=== PATIENT | male | born 1960 | race Caucasian/White ===

== ENCOUNTER 2016-12-20 13:16 | Inpatient (IN) | payer MEDICARE, MEDICAID ==
--- NOTE | 2016-12-20 13:50 | ED Physician Chart ---
Chief Complaint/HPI - Patient Information Date Seen:: 12/20/16 Time Seen:: 13:49 Chief Complaint:: CONSTIPATION (NO BM IN 3 DAYS) History of Present Illness:: According to the transporting steam brush operator, the patient hasn't had a bowel movement in 3 days. They have no information regarding vomiting, diarrhea or abdominal pain. The patient is noncommunicative and will not answer yes or no to questions about diarrhea, abdominal pain, vomiting, or chest pain. He does follow some very simple commands such as "open your mouth". He will not participate in a motor examination by squeezing my fingers or lifting his legs. Allergies:: Allergies Allergy/AdvReac Type Severity Reaction Status Date / Time No Known Allergies Allergy Verified 12/20/16 13:35 Vitals:: Vital Signs - 8 hr 12/20/16 13:45 BP 132/88 Review of Systems - Review of Systems General/Constitutional: Other (the patient is completely nonresponsive to any ROS questions.) Past Medical History - Past Medical History Past Medical History: Thyroid disorder (HYPOTHYROID, SEVERE MENTALLY IMPAIRD, SCHIZOPHRENIA), Other (hypothyroidism.) Family History: Other (according to accompanying paperwork the patient has hypothyroidism, mental retardation, and schizophrenia.) Social History: Non Smoker, No Alcohol, No Drug Use, Care Facility (patient lives in a [id number] facility. No surgical history.) Family Medical History - Family Member Mother History Unknown: Yes Physical Exam - Physical Examination General/Constitutional: Awake, Well-developed, well-nourished, Alert, No distress, Non-toxic appearing Head: Atraumatic Eyes: Lids, conjuctiva normal, PERRL Other Eyes comments:: Would not cooperate with EOM testing. Skin: No skin lesions, No ecchymosis, Well hydrated, No lymphadenopathy ENMT: TM canals nl, Nasal exam nl, Lips, teeth, gums nl, Oropharynx nl, Tonsils nl Neck: Nontender, Full ROM w/o pain, No JVD, No nuchal rigidity, No mass, No stridor Respiratory: Nl effort/Exclusion, No Wheeze/Rhonchi/Rales Cardio Vascular: No murmur, gallop, rubs, NL S1 S2 Other Cardio Vascular comments:: Good peripheral pulses in all 4 extremities. GI: No tenderness/rebounding/guarding, No organomegaly, No hernia, Normal BS's, Nondistended, No mass/bruits, No McBurney tenderness, Rectum exam nl Other GI comments:: No fecal impaction. : No CVA tenderness Other comments:: Circumcised with mild testicular atrophy on both the right and the left. Extremities: No tenderness or effusion, Full ROM, No edema Other Extremities comments:: Patient would not cooperate with motor examination. No spontaneous movement of any extremity. Other Neuro/Psych comments:: PT unco-oberal with attempt to do neuro exam. Misc: Normal back Labs/Radiology/EKG Results - Lab Results Results: The CBC Was unremarkable with no leukocytosis, anemia or abnormal platelets. Metabolic studies showed all electrolytes within normal parameters except for a mild elevation of the chloride. Renal function studies were normal. Liver function studies were normal. plain films of the abdomen showed extensive fecal content in the colon with some areas of fecal impaction and air fluid levels consistent with ileus. No free air was present. Assessment - Assessment General Assessment: CASE SUMMARY: this 56-year-old male was sent to the emergency department for evaluation of constipation. as unable to provide any information and accompanying steam brush operator stated the patient had not had a ball movement over the last three days. On physical examination he appeared to be in no acute distress and rectal examination was negative for impaction at that level. Abdominal x-ray studies showed the large intestine to be filled with stools with areas of fecal impaction and air fluid levels in the small bowel. The case was discussed with Dr. Wong in the patient was admitted to a medical/surgery bed for further evaluation of possible bowel obstruction. MDM DDX For CONSTIPATION: NOT MECHANICAL BOWEL OBSTRUCTION BASED ON NEGATIVE CT scan of the abdomen. NOT Incarcerated hernia based on physical examination and CT scan of the abdomen. NOT Dehydration based on examination and metabolic studies. NOT obstructing tumor mass based on negative CT scan of abdomen. ED Septic Shock - . Is Septic Shock (SBP<90, OR Lactate>4 mmol\\L) present?: No - <6hrs of presentation: Vital Signs: Vital Signs - 8 hr 12/20/16 13:45 BP 132/88 Reassessment (Disposition) - Reassessment Reassessment Condition:: Unchanged - Diagnosis Diagnosis:: DIAGNOSIS: 1) FECAL IMPACTION WITH ILEUS 2) HYPOTHYROISM 3) SCHIZOPHRENIA - Patient Disposition Discharge/Transfer:: Acute Care w/in this hosp Accepting Physician:: THE PT WILL BE ADMITTED TO DR. WONG ED Discharge Plan - Patient Disposition Admit/Discharge/Transfer: Acute Care w/in this special care hospital Condition at Disposition: Stable
[2016-12-20 14:26] LABS: % BASOPHILS 1.2 % (0.0-2.0); % EOSINOPHILS 0.8 % (0.0-5.0); % LYMPHOCYTES 33.9 % (20.0-50.0); % MONOCYTES 7.4 % (2.0-10.0); % NEUTROPHILS 56.7 % (40.0-80.0); HEMATOCRIT 44.7 % (39.0-49.0); MEAN CELL VOLUME 88.7 fl (80-99); MEAN CORPUSCULAR HEMOGLOBIN 29.8 pg (26.0-30.0); MEAN CORPUSCULAR HGB CONC 33.6 pg (28.0-36.0); MEAN PLATELET VOLUME 9.4 fl; NEUTROPHILE ABSOLUTE 3.5 Th/cmm (1.8-8.0); PLATELET COUNT 174 Th/cmm (150-400); RED BLOOD COUNT 5.04 Mil/cmm (4.30-5.70); RED CELL DISTRIBUTION WIDTH 12.5 % (11.5-20.0); WHITE BLOOD COUNT 6.4 Th/cmm (4.8-10.8)
[2016-12-20 14:41] LABS: ALB/GLOB RATIO 1.8 (1.0-1.8); ALKALINE PHOSPHATASE 78 U/L (34-104); ANION GAP 6.9 (7.0-16.0); BILIRUBIN,TOTAL 0.4 mg/dL (0.3-1.0); BUN - UREA NITROGEN 13 mg/dL (7-25); BUN/CREATININE RATIO 14.4; CALCIUM SERUM 9.1 mg/dL (8.6-10.3); CARBON DIOXIDE 25.5 mEq/L (21.0-31.0); CHLORIDE 112 mEq/L (98-107); CREATININE - SERUM 0.9 mg/dL (0.7-1.3); GLUCOSE 103 mg/dL (70-105); POTASSIUM SERUM 4.4 mEq/L (3.5-5.1); SGOT 21 U/L (13-39); SGPT/ALT 22 U/L (7-52); SODIUM SERUM 140 mEq/L (136-145)
[2016-12-20 14:44] VITALS: BP 132/88
[2016-12-20] MEDS: Lactulose 10 Gm/15 mL 30mL UDC PO SCH ×2 (20:33→23:54)
[2016-12-20] MEDS: D5-0.45NS 1,000 ML IV SCH (22:00)
[2016-12-20] MEDS: cefTRIAXone 1 GM in Sodium Chloride 0.9% 50 ML IV SCH (22:23)
[2016-12-21] MEDS: Lactulose 10 Gm/15 mL 30mL UDC PO SCH ×3 (04:38→21:48)
[2016-12-21] MEDS ORDERED: Haloperidol Lactate 5 mg/mL 1mL Vial IVP STA (05:47)
[2016-12-21] MEDS ORDERED: Haloperidol Lactate 5 mg/mL 1mL Vial ONE (05:54)
[2016-12-21] MEDS ORDERED: Magnesium Hydroxide (MOM) 30 mL UDC PO PRN (08:46)
[2016-12-21 10:22] LABS: % EOSINOPHILS 0.3 % (0.0-5.0); % LYMPHOCYTES 15.1 % (20.0-50.0); % MONOCYTES 5.9 % (2.0-10.0); % NEUTROPHILS 78.7 % (40.0-80.0); HEMATOCRIT 47.1 % (39.0-49.0); HEMOGLOBIN 16.2 gm/dL (13.2-17.3); MEAN CELL VOLUME 88.1 fl (80-99); MEAN CORPUSCULAR HEMOGLOBIN 30.3 pg (26.0-30.0); MEAN CORPUSCULAR HGB CONC 34.4 pg (28.0-36.0); MEAN PLATELET VOLUME 9.1 fl; NEUTROPHILE ABSOLUTE 8.7 Th/cmm (1.8-8.0); PLATELET COUNT 203 Th/cmm (150-400); RED BLOOD COUNT 5.34 Mil/cmm (4.30-5.70); RED CELL DISTRIBUTION WIDTH 12.4 % (11.5-20.0)
[2016-12-21] MEDS: POLYETHYLENE GLYCOL 3350 17 GM PACK PO SCH (10:32)
[2016-12-21 10:43] LABS: ANION GAP 11.3 (7.0-16.0); BUN - UREA NITROGEN 10 mg/dL (7-25); CALCIUM SERUM 9.5 mg/dL (8.6-10.3); CHLORIDE 108 mEq/L (98-107); GLUCOSE 116 mg/dL (70-105); POTASSIUM SERUM 4.3 mEq/L (3.5-5.1); SODIUM SERUM 136 mEq/L (136-145)
--- NOTE | 2016-12-21 11:42 | Diagnostic Imaging Report ---
INDICATION: Pain Technique: Serial axial images were performed through the abdomen and pelvis and then reformatted in the coronal plane. CTDI is 12mGy. [id number] FINDINGS: Lung bases clear. Liver and spleen are normal in size without focal mass. No renal masses stones or hydronephrosis. No masses or enlargement of the adrenal glands or pancreas. No biliary dilatation. Gallbladder contains no stones. There is distention of small bowel loops predominantly the colon but also some of the small bowel loops. No transition point is identified. Within the pelvis bladder is smooth walled and distended but without stones. No abnormal masses or fluid collections. No hernia sacs. Bone windows show no lytic or blastic lesions of bone. IMPRESSION: Ileus. No abscess or free fluid. No free air.
--- NOTE | 2016-12-21 14:40 | History & Physical ---
ADMIT DATE: 12/20/2016 I got a call from the ER saying patient for obstipation and fecal impaction and abdominal pains. HISTORY OF PRESENT ILLNESS: He has had no bowel movements for 3 days and is complaining of abdominal pain. No history of diarrhea. The patient is noncommunicative. ALLERGIES: None. REVIEW OF SYSTEMS: Unable to obtain. PAST MEDICAL HISTORY: Includes history of severe hypothyroidism. SOCIAL HISTORY: No history of smoking, drug abuse, etc. He lives in a board and care. PHYSICAL EXAMINATION: VITAL SIGNS: Stable. GENERAL: The patient is awake, alert. The patient is nontoxic, but complaining of abdominal discomfort and distention. HEAD: Normal. ENT: Normal. NECK: Supple and nontender. LUNGS: Clear. CARDIOVASCULAR SYSTEM: S1, S2 heard. ABDOMEN: Diffuse mild tenderness noted. EXTREMITIES: Revealed no edema, peripheral pulses are felt. The patient's CAT scan showed fecal impaction and dilated loops. DIAGNOSES: 1. Ileus, obstructive pattern on x-ray. 2. Hypothyroidism. 3. Schizophrenia. PLAN: The patient is being admitted and I will go ahead and give him some laxatives and will have GI doctor see the patient and will also do the sepsis workup to make sure the patient does not have any urinary infection. Initially, this patient's white count was high, his cloride was 112 indicating some dehydration. I will do the urinalysis and CBC and go from there. JOB# [id number] MTDD
[2016-12-21] MEDS: cefTRIAXone 1 GM in Sodium Chloride 0.9% 50 ML IV SCH (22:10)
--- NOTE | 2016-12-22 03:03 | Admit Criteria Form ---
Admit Criteria Forms - Admit Criteria Diagnosis: GASTROENTEROLOGY GRG Clinical Indications for Admission to Inpatient Care (Place 'X' for any and all applicable criteria): Hospital admission is needed for appropriate care of the patient because of ANY ONE of the followin [ ]I. Hemoperitoneum(7) [ ]II. Ascites requiring acute treatment indicated by ANY ONE of the following( 8)(9): [ ]a) Hemodynamic instability remaining after emergency or observation level care (as appropriate) [ ]b) Peritoneal signs present (eg, abdominal rigidity, rebound tenderness, absent bowel sounds) [ ]c) Tachypnea, Hypoxemia, or other respiratory symptoms remain after emergency or observation level care (as appropriate) [ ]d) Suspected infected ascites as indicated by ANY ONE of the following: [ ]i) Temperature greater than 100 degrees F (37.8 degrees C) [ ]ii) Abdominal pain or tenderness not relieved by paracentesis [ ]iii) Systemic signs of infection (eg, elevated WBC count, fever) [ ]iv) Ascitic fluid analysis consistent with infection ( eg, elevated WBC count): [ ]v) Vital sign abnormality [x]III. Suspected acute intra-abdominal process indicated by ANY ONE of the following(1)(2)(3)(4)(5): [ ]a) Hemodynamic instability [x ]b) Peritoneal signs present (eg, abdominal rigidity, rebound tenderness, absent bowel sounds) [ ]c) Bowel obstruction suspected (eg, severe vomiting, abdominal distension) [ ]d) Suspected mesenteric ischemia or ischemic colitis(6) [ ]e) Other signs or symptoms of acute abdominal disease (eg, severe pain, free air): [ ]IV. Severe liver disease indicated by ANY ONE of the following(8)(9)(10)(11)( 12)(13)(14): [ ]a) Acute hepatitis (eg, transaminase level greater than 1000 IU/L) [ ]b) Acute elevation of prothrombin time to more than 50% above normal or INR greater than 1.5 [ ]c) Bilirubin greater than 20 mg/dL (342 micromoles/L) (15) [ ]d) New-onset or worsening hepatic encephalopathy [ ]e) Acute liver necrosis [ ]f) Vomiting or dehydration that is severe of persistent [ ]g) Hemodynamic instability due to liver disease [ ]h) Acute renal failure [ ]i) Hepatic abscess [ ]j) Dehydration that is severe or persistent [ ]k) Hepatic hydrothorax(21) [ ]l) Other indications of severe liver disease (eg, persistent fever , ingestion of hepatotoxin) [ ]V. Severe diarrhea indicated by ANY ONE of the following(17)(18)(19)(20)(21)( 22)(23): [ ]a) High fever or other high-risk infection situation [ ]b) Intractable bloody diarrhea (eg, more than 6 bloody stools per day) [ ]c) Suspected Clostridium difficile-associated diarrhea(24) [ ]d) Change in mental status that persists after emergency or observation level care (as appropriate) [ ]e) Severe dehydration (eg, greater than 9% loss of body weight in children) [ ]f) Inability to maintain hydration [ ]g) Peritoneal signs present (eg, abdominal rigidity, rebound tenderness, absent bowel sounds) [ ]h) Abdominal ischemia suspected(6) [ ]i) Hemodynamic instability that persists after emergency or observation level care (as appropriate) [ ]j) Severe electrolyte abnormalities requiring inpatient care [ ]k) Acute renal failure [ ]. Suspected toxic megacolon(5)(6) [ ]VII.Severe dysphagia indicated by ANY ONE of the following(25)(26): [ ]a) Suspected esophageal perforation or fistula(27) [ ]b) Suspected cause that requires inpatient care (eg, caustic ingestion, severe esophagitis) (28) [ ]c) Severe dehydration (eg, greater than 9% loss of body weight in children) [ ]d) Inability to manage secretions or maintain hydration [ ]e) Hemodynamic instability that persists after emergency or observation level care (as appropriate) [ ]f) Severe electrolyte abnormalities requiring inpatient care [ ]g) Acute renal failure [ ]VIII.Vomiting and ANY ONE of the following (29)(30)(31)(32): [ ]a) High fever or other high-risk infection situation [ ]b) Change in mental status that persists after emergency or observation level care (as appropriate) [ ]c) Severe dehydration (e.g., greater than 9% loss of body weight in children) [ ]d) Peritoneal signs present (e.g., abdominal rigidity, rebound tenderness, absent bowel sounds) [ ]e) Hemodynamic instability that persists after emergency or observation level care (as appropriate) [ ]f) Severe electrolyte abnormalities requiring inpatient care [ ]g) Acute renal failure [ ]h) Bowel obstruction suspected (e.g., severe vomiting, abdominal distension) [ ]i) Vomiting that is severe or persistent after medical treatment [ ]IX. Significant dehydration indicated by ANY ONE of the following(23)(24)(25) [ ]a) Clinical findings of severe dehydration indicated by ANY ONE of the following: [ ]i) Acute loss of weight from baseline (5% of body weight in adults, 9% in pediatric patients) [ ]ii) Hemodynamic instability [ ]iii) Acute renal failure [ ]iv) Serum sodium greater than 150 mEq/L (mmol/L) [ ]b) Dehydration that is persistent indicated by ALL of the following: [ ]i) Oral rehydration therapy not tolerated or insufficient to adequately correct dehydration [ ]ii) Appropriate intravenous treatment (eg, fluids) does not readily correct dehydration hours of (ie, after 12 to 24 of treatment) [ ]X. Gastroparesis and ANY ONE of the following(37)(38)(39): [ ]a) Dehydration that is severe or persistent [ ]b) Severe electrolyte abnormalities requiring inpatient care [ ]c) Acute renal failure [ ]d) Vomiting that is severe or persistent [ ]XI. Complications of transplanted liver indicated by ANY ONE of the following (40)(41): [ ]a) Acute graft rejection requiring inpatient management (eg, intravenous immunosuppression)(42) [ ]b) Failure of transplanted liver as indicated by ANY ONE of the following: [ ]i) Acute hepatitis (eg, transaminase level greater than 1000 International Units per liter (IU/L)) [ ]ii) Acute elevation of prothrombin time to more than 50% above baseline or INR greater than 1.5 [ ]iii) Bilirubin greater than 20 mg/dL (342 micromoles/L) [ ]iv) New-onset or worsening hepatic encephalopathy [ ]v) Acute elevation of serum ammonia level (eg, greater than 210 mcg/dL (150 micromoles/L)) [ ]vi) Acute liver necrosis [ ]c) Infection requiring inpatient management (eg, Hemodynamic instability, need for intravenous antimicrobial treatment)(43)(44)(45)(46)(47)(48)(49)(50) [ ]d) Other complication of transplanted liver (eg, thrombosis, autoimmune hepatitis, variceal bleeding) requiring inpatient management(51)(52) [ ]XII Complications of transplanted pancreas indicated by ANY ONE of the following(53): [ ]a) Acute graft rejection requiring inpatient management (eg, intravenous immunosuppression)(42)(54) [ ]b) Failure of transplanted pancreas as indicated by ANY ONE of the following: [ ]i) Serum amylase greater than 3 times the upper limit of normal or baseline [ ]ii) Serum lipase greater than 3 times the upper limit of normal or baseline [ ]iii) Imaging findings consistent with pancreatic inflammation or necrosis [ ]c) Infection requiring inpatient management (eg, Hemodynamic instability, need for intravenous antimicrobial treatment)(43)(44)(45)(46)(47)(48)(49)(50) [ ]d) Other complication of transplanted liver (eg, thrombosis, autoimmune hepatitis, variceal bleeding) requiring inpatient management(51)(52) [ ]X. Gastroenterology condition and ALL of the following: [ ]a) Symptom or finding for which emergency and observation care have failed or are not considered appropriate (Also use General Criteria: Observation Care as appropriate) [ ]b) Presence of ANY ONE of the following: [ ]i) A General Admission Criteria [ ]ii) A Pediatric General Admission Criteria. The original [facility] [employer] content created by [facility] [employer] has been revised. The portions of the content which have been revised are identified through the use of italic text or in bold,and [facility] has neither reviewed nor approved the modified material. All other unmodified content is copyright [facility]. Please see references footnoted in the original [facility] edition 2016 Admit Criteria Met?: Yes
--- NOTE | 2016-12-22 06:07 | Consultation ---
DATE OF CONSULTATION: 12/21/2016 IDENTIFYING INFORMATION: The patient is a 56-year-old male. CHIEF COMPLAINT: No answers. HISTORY OF PRESENT ILLNESS: The patient was brought to the hospital because of unable to move his bowel for a few days. The patient himself has been mute. Staff reports he is selectively mute as he has been repeating what some of the staff is saying, but when I tried to talk to him, he would not answer me and at some point he appeared as if he will come in to attack me, would not answer any of my questions. The patient has not been on any psychotropic medication. Unable to get any more information from. However, he was combative with the staff. PAST PSYCHIATRIC HISTORY: Unobtainable. MEDICAL HISTORY: Deferred to the medical doctor. He has not been on any psychotropic medications. FAMILY AND SOCIAL HISTORY: Unobtainable. MENTAL STATUS EXAMINATION: The patient is appropriately dressed in hospital gown. He was looking at me. It seemed like he can hear me, but he would not answer any of my question. I am not sure if ____ how much his hearing is. He was unable to answer any of my questions ____ orientation or suicide or homicide or hallucination or paranoia, but he appeared at some point as if he wants to attack me. He seems to be paranoid, unpredictable, impulsive and unable to test his memory. We will do a full mental status examination on the patient. His insight and judgment is impaired. IMPRESSION: AXIS I: Psychosis, N.O.S. MEDICAL DIAGNOSES: Deferred to the medical doctor. I would recommend start the patient on Risperdal and the patient may need to go to [facility] if still combative. Thank you very much for allowing me to participate in the care of this most interesting gentleman. JOB# [id number]
--- NOTE | 2016-12-22 06:28 | Consultation ---
DATE OF CONSULTATION: 12/21/2016 INPATIENT GASTROINTESTINAL CONSULTATION REFERRING PHYSICIAN: Dr. Waddell. REASON FOR CONSULTATION: Constipation, change in bowel habit. HISTORY OF PRESENT ILLNESS: This is a 56-year-old male, who is a poor historian. The patient apparently was brought to the hospital because of lack of bowel movements. He denies having any abdominal pain, but again he is a poor historian. PAST MEDICAL HISTORY: Hypothyroidism, mental retardation, and schizophrenia. PAST SURGICAL HISTORY: None to add recently. FAMILY HISTORY: Noncontributory. SOCIAL HISTORY: Resident of a skilled facility. ALLERGIES: None. CURRENT MEDICATIONS: Tylenol, ceftriaxone, lactulose, Ativan. REVIEW OF SYSTEMS: Ten-point review of system was performed and the pertinent positives were unobtainable. PHYSICAL EXAMINATION: VITAL SIGNS: Temperature 99.8, breathing 14, pulse of 99, blood pressure is 116/77, satting 96%. GENERAL: In no apparent distress. EYES: Anicteric, normal conjunctivae. HEENT: Normocephalic, atraumatic. Moist mucous membranes. NECK: Soft, supple. CHEST: Clear, normal effort. CARDIOVASCULAR: Regular rate and rhythm. ABDOMEN: Soft, nontender, nondistended. SKIN: Warm, dry. EXTREMITIES: Revealed no cyanosis. LABORATORY DATA: Show white count 6.4, hemoglobin ____, platelets of 174. LFTs within normal limits. IMPRESSION: A 56-year-old male with change in bowel habits, constipation, may have fecal impaction. PLAN: 1. CT of the abdomen and pelvis. 2. Provide the patient with laxatives. 3. May need colonoscopy either as an inpatient or outpatient once he is cleaned out. Thank you for allowing me to participate. Please call me if you have any questions. JOB# [id number]
[2016-12-22] MEDS: Lactulose 10 Gm/15 mL 30mL UDC PO SCH ×2 (08:17→14:16)
[2016-12-22] MEDS: POLYETHYLENE GLYCOL 3350 17 GM PACK PO SCH ×2 (08:18→09:43)
[2016-12-22] MEDS: D5-0.45NS 1,000 ML IV SCH (08:51)
--- NOTE | 2016-12-22 11:57 | Diagnostic Imaging Report ---
Abdomen 2 views History: Constipation Comparison: None Findings: Note exam was presented for review on 12/22/2014. There is copious amount of stool throughout the large bowel with generalized gas-filled loops of bowel noted. Areas fecal impaction are noted. The osseous structures are intact. IMPRESSION: Copious amount of stool throughout the large bowel with areas of fecal impaction. Gas-filled loops of bowel are also noted. Findings may be due to constipation and superimposed ileus. Please correlate clinically.
--- NOTE | 2016-12-22 14:04 | General Progress Note ---
Subjective - Review of Systems Subjective: Pt. still c/o's of abdominal pain/discomfort Objective - Results Result Diagrams: 12/21/16 10:15 12/21/16 10:15 Recent Labs: Laboratory Last Values WBC 11.0 Th/cmm (4.8-10.8) H D 12/21/16 10:15 RBC 5.34 Mil/cmm (4.30-5.70) 12/21/16 10:15 Hgb 16.2 gm/dL (13.2-17.3) 12/21/16 10:15 Hct 47.1 % (39.0-49.0) 12/21/16 10:15 MCV 88.1 fl (80-99) 12/21/16 10:15 MCH 30.3 pg (26.0-30.0) H 12/21/16 10:15 MCHC Differential 34.4 pg (28.0-36.0) 12/21/16 10:15 RDW 12.4 % (11.5-20.0) 12/21/16 10:15 Plt Count 203 Th/cmm (150-400) 12/21/16 10:15 MPV 9.1 fl 12/21/16 10:15 Neutrophils % 78.7 % (40.0-80.0) 12/21/16 10:15 Lymphocytes % 15.1 % (20.0-50.0) L 12/21/16 10:15 Monocytes % 5.9 % (2.0-10.0) 12/21/16 10:15 Eosinophils % 0.3 % (0.0-5.0) 12/21/16 10:15 Basophils % 0.0 % (0.0-2.0) 12/21/16 10:15 Sodium 136 mEq/L (136-145) 12/21/16 10:15 Potassium 4.3 mEq/L (3.5-5.1) 12/21/16 10:15 Chloride 108 mEq/L (98-107) H 12/21/16 10:15 Carbon Dioxide 21.0 mEq/L (21.0-31.0) 12/21/16 10:15 Anion Gap 11.3 (7.0-16.0) 12/21/16 10:15 BUN 10 mg/dL (7-25) 12/21/16 10:15 Creatinine 1.0 mg/dL (0.7-1.3) 12/21/16 10:15 Est GFR ( Amer) > 60.0 ml/min (>90) 12/21/16 10:15 Est GFR (Non-Af Amer) > 60.0 ml/min 12/21/16 10:15 BUN/Creatinine Ratio 10.0 12/21/16 10:15 Glucose 116 mg/dL (70-105) H 12/21/16 10:15 Calcium 9.5 mg/dL (8.6-10.3) 12/21/16 10:15 Total Bilirubin 0.4 mg/dL (0.3-1.0) 12/20/16 14:17 AST 21 U/L (13-39) 12/20/16 14:17 ALT 22 U/L (7-52) 12/20/16 14:17 Alkaline Phosphatase 78 U/L (34-104) 12/20/16 14:17 Total Protein 6.7 gm/dL (6.0-8.3) 12/20/16 14:17 Albumin 4.3 gm/dL (4.2-5.5) 12/20/16 14:17 Globulin 2.4 gm/dL 12/20/16 14:17 Albumin/Globulin Ratio 1.8 (1.0-1.8) 12/20/16 14:17 - Physical Exam Vitals and I&O: Vital Signs Temp 98.6 F 12/22/16 11:49 Pulse 76 12/22/16 11:49 Resp 17 12/22/16 11:49 BP 143/76 12/22/16 11:49 Pulse Ox 98 12/22/16 11:49 Intake & Output 12/21/16 12/22/16 12/22/16 18:59 06:59 18:59 Intake Total 1590 240 Balance 1590 240 Intake: Intake, IV Amount 1000 D5-0.45NS 1,000 ml @ 50 1000 mls/hr IV .Q20H HATTIE Rx#: [id number] Oral 590 240 Other: # Voids 2 4 # Bowel Movements 2 1 Stool Characteristics Soft Brown Active Medications: Current Medications Acetaminophen (Tylenol) 650 mg PO Q4H PRN PRN Reason: PAIN & FEVER >101 Stop: 02/18/17 21:44 Docusate Sodium (Colace) 100 mg PO BID HATTIE Stop: 02/19/17 08:59 Last Admin: 12/22/16 08:18 Dose: Not Given Dextrose/Sodium Chloride (D5-0.45ns) 1,000 mls @ 50 mls/hr IV .Q20H HATTIE Stop: 02/18/17 21:41 Last Admin: 12/22/16 08:51 Dose: 50 mls/hr Ceftriaxone Sodium 1 gm/ (Sodium Chloride) 50 mls @ 100 mls/hr IV Q24HR HATTIE Stop: 02/18/17 21:59 Last Admin: 12/21/16 22:10 Dose: 100 mls/hr Lactulose (Cephulac) 30 gm PO TID HATTIE Stop: 02/19/17 11:59 Last Admin: 12/22/16 08:17 Dose: Not Given Lorazepam (Ativan) 1 mg IV Q4HR PRN; Protocol PRN Reason: Agitation Stop: 02/19/17 05:49 Last Admin: 12/21/16 22:11 Dose: 1 mg Magnesium Hydroxide (Milk Of Magnesia) 30 ml PO HS PRN PRN Reason: Constipation Stop: 02/19/17 08:45 Polyethylene Glycol (Miralax) 17 gm PO DAILY HATTIE Stop: 02/19/17 08:59 Last Admin: 12/22/16 09:43 Dose: 17 gm General: Alert, Oriented x3, Cooperative, Mild distress HEENT: Atraumatic, PERRLA, EOMI Neck: Supple Cardiovascular: Regular rate, Normal S1, Normal S2 Lungs: Clear to auscultation Abdomen: Tender (Rigid, diffuse mild tenderness ) Assessment/Plan - Assessment Assessment: Ileus, obstructive pattern seen on x-ray Hypothyroidism Schizophrenia - Plan Plan: Laxatives GI consult Sepsis workup r/o UTI Labs Monitor vitals
--- NOTE | 2016-12-22 14:23 | General Progress Note ---
Subjective - Review of Systems Service Date: 12/22/16 Subjective: Pt. still has abdominal pain/discomfort Objective - Results Result Diagrams: 12/21/16 10:15 12/21/16 10:15 Recent Labs: Laboratory Last Values WBC 11.0 Th/cmm (4.8-10.8) H D 12/21/16 10:15 RBC 5.34 Mil/cmm (4.30-5.70) 12/21/16 10:15 Hgb 16.2 gm/dL (13.2-17.3) 12/21/16 10:15 Hct 47.1 % (39.0-49.0) 12/21/16 10:15 MCV 88.1 fl (80-99) 12/21/16 10:15 MCH 30.3 pg (26.0-30.0) H 12/21/16 10:15 MCHC Differential 34.4 pg (28.0-36.0) 12/21/16 10:15 RDW 12.4 % (11.5-20.0) 12/21/16 10:15 Plt Count 203 Th/cmm (150-400) 12/21/16 10:15 MPV 9.1 fl 12/21/16 10:15 Neutrophils % 78.7 % (40.0-80.0) 12/21/16 10:15 Lymphocytes % 15.1 % (20.0-50.0) L 12/21/16 10:15 Monocytes % 5.9 % (2.0-10.0) 12/21/16 10:15 Eosinophils % 0.3 % (0.0-5.0) 12/21/16 10:15 Basophils % 0.0 % (0.0-2.0) 12/21/16 10:15 Sodium 136 mEq/L (136-145) 12/21/16 10:15 Potassium 4.3 mEq/L (3.5-5.1) 12/21/16 10:15 Chloride 108 mEq/L (98-107) H 12/21/16 10:15 Carbon Dioxide 21.0 mEq/L (21.0-31.0) 12/21/16 10:15 Anion Gap 11.3 (7.0-16.0) 12/21/16 10:15 BUN 10 mg/dL (7-25) 12/21/16 10:15 Creatinine 1.0 mg/dL (0.7-1.3) 12/21/16 10:15 Est GFR ( Amer) > 60.0 ml/min (>90) 12/21/16 10:15 Est GFR (Non-Af Amer) > 60.0 ml/min 12/21/16 10:15 BUN/Creatinine Ratio 10.0 12/21/16 10:15 Glucose 116 mg/dL (70-105) H 12/21/16 10:15 Calcium 9.5 mg/dL (8.6-10.3) 12/21/16 10:15 Total Bilirubin 0.4 mg/dL (0.3-1.0) 12/20/16 14:17 AST 21 U/L (13-39) 12/20/16 14:17 ALT 22 U/L (7-52) 12/20/16 14:17 Alkaline Phosphatase 78 U/L (34-104) 12/20/16 14:17 Total Protein 6.7 gm/dL (6.0-8.3) 12/20/16 14:17 Albumin 4.3 gm/dL (4.2-5.5) 12/20/16 14:17 Globulin 2.4 gm/dL 12/20/16 14:17 Albumin/Globulin Ratio 1.8 (1.0-1.8) 12/20/16 14:17 - Physical Exam Vitals and I&O: Vital Signs Temp 98.6 F 12/22/16 11:49 Pulse 76 12/22/16 11:49 Resp 17 12/22/16 11:49 BP 143/76 12/22/16 11:49 Pulse Ox 98 12/22/16 11:49 Intake & Output 12/21/16 12/22/16 12/22/16 18:59 06:59 18:59 Intake Total 1590 240 Balance 1590 240 Intake: Intake, IV Amount 1000 D5-0.45NS 1,000 ml @ 50 1000 mls/hr IV .Q20H [facility] Rx#: [id number] Oral 590 240 Other: # Voids 2 4 # Bowel Movements 2 1 Stool Characteristics Soft Brown Active Medications: Current Medications Acetaminophen (Tylenol) 650 mg PO Q4H PRN PRN Reason: PAIN & FEVER >101 Stop: 02/18/17 21:44 Docusate Sodium (Colace) 100 mg PO BID [facility] Stop: 02/19/17 08:59 Last Admin: 12/22/16 08:18 Dose: Not Given Dextrose/Sodium Chloride (D5-0.45ns) 1,000 mls @ 50 mls/hr IV .Q20H [facility] Stop: 02/18/17 21:41 Last Admin: 12/22/16 08:51 Dose: 50 mls/hr Ceftriaxone Sodium 1 gm/ (Sodium Chloride) 50 mls @ 100 mls/hr IV Q24HR [facility] Stop: 02/18/17 21:59 Last Admin: 12/21/16 22:10 Dose: 100 mls/hr Lactulose (Cephulac) 30 gm PO TID [facility] Stop: 02/19/17 11:59 Last Admin: 12/22/16 08:17 Dose: Not Given Lorazepam (Ativan) 1 mg IV Q4HR PRN; Protocol PRN Reason: Agitation Stop: 02/19/17 05:49 Last Admin: 12/21/16 22:11 Dose: 1 mg Magnesium Hydroxide (Milk Of Magnesia) 30 ml PO HS PRN PRN Reason: Constipation Stop: 02/19/17 08:45 Polyethylene Glycol (Miralax) 17 gm PO DAILY [facility] Stop: 02/19/17 08:59 Last Admin: 12/22/16 09:43 Dose: 17 gm General: Alert, Oriented x3, Cooperative, Mild distress HEENT: Atraumatic, PERRLA, EOMI Neck: Supple Cardiovascular: Regular rate, Normal S1, Normal S2 Lungs: Clear to auscultation Abdomen: Tender, Other (Rigid, diffuse mild tenderness)
[2016-12-22] MEDS ORDERED: Magnesium Citrate 1.75 GM/300 mL Bottle PO ONE (17:16)
[2016-12-22] MEDS: cefTRIAXone 1 GM in Sodium Chloride 0.9% 50 ML IV SCH (21:02)
[2016-12-23 05:59] LABS: % BASOPHILS 0.2 % (0.0-2.0); % EOSINOPHILS 0.3 % (0.0-5.0); % LYMPHOCYTES 16.9 % (20.0-50.0); % MONOCYTES 8.9 % (2.0-10.0); % NEUTROPHILS 73.7 % (40.0-80.0); HEMATOCRIT 45.2 % (39.0-49.0); HEMOGLOBIN 15.4 gm/dL (13.2-17.3); MEAN CELL VOLUME 89.8 fl (80-99); MEAN CORPUSCULAR HEMOGLOBIN 30.6 pg (26.0-30.0); MEAN CORPUSCULAR HGB CONC 34.1 pg (28.0-36.0); MEAN PLATELET VOLUME 9.3 fl; NEUTROPHILE ABSOLUTE 11.9 Th/cmm (1.8-8.0); PLATELET COUNT 207 Th/cmm (150-400); RED BLOOD COUNT 5.03 Mil/cmm (4.30-5.70); RED CELL DISTRIBUTION WIDTH 12.4 % (11.5-20.0)
[2016-12-23 06:11] LABS: ANION GAP 12.3 (7.0-16.0); BUN - UREA NITROGEN 23 mg/dL (7-25); BUN/CREATININE RATIO 25.6; CALCIUM SERUM 9.2 mg/dL (8.6-10.3); CARBON DIOXIDE 18.5 mEq/L (21.0-31.0); CHLORIDE 109 mEq/L (98-107); CREATININE - SERUM 0.9 mg/dL (0.7-1.3); GLUCOSE 135 mg/dL (70-105); POTASSIUM SERUM 3.8 mEq/L (3.5-5.1); SODIUM SERUM 136 mEq/L (136-145)
[2016-12-23 07:20] LABS: URINE BILIRUBIN NEGATIVE (NEGATIVE); URINE BLOOD NEGATIVE (NEGATIVE); URINE COLOR YELLOW; URINE GLUCOSE (UA) 100 mg/dL (NEGATIVE); URINE KETONE TRACE mg/dL (NEGATIVE)
[2016-12-23 07:21] LABS: URINE PROTEIN NEGATIVE (NEGATIVE); URINE UROBILINOGEN 0.2 E.U./dL (0.2 - 1.0)
[2016-12-23 07:26] LABS: URINE BACTERIA OCCASIONAL /hpf (NONE SEEN); URINE EPITHELIAL CELLS FEW /lpf (FEW); URINE RBC 0-2 /hpf (0-5); URINE WBC 0-2 /hpf (0-5)
--- NOTE | 2016-12-23 07:45 | Progress Notes ---
DATE: 12/22/2016 Case discussed with staff of the patient, reviewed records. ____ the patient is on Risperdal, actually 3 mg. The patient continues to be selectively mute, continues to be internally preoccupied. He is compliant with the medication with no side effects, less agitation, less irritability. He has no plans for further medication, no sedation, no nausea, no extrapyramidal symptoms. ____ the patient is stable, can go back to the long term. If he is not and still combative, he can go to [facility]. Thank you very much for allowing me to participate in the care of this most interesting gentleman. JOB# [id number]
[2016-12-23] MEDS: POLYETHYLENE GLYCOL 3350 17 GM PACK PO SCH (09:18)
[2016-12-23] MEDS: D5-0.45NS 1,000 ML IV SCH (11:09)
--- NOTE | 2016-12-23 13:02 | Diagnostic Imaging Report ---
CHEST X-RAY: AP view INDICATION: Shortness of breath, elevated white blood cell count COMPARISON: CT abdomen and pelvis on 12/21/2016 FINDINGS: Suboptimal lung volumes are seen with increased bibasal lung markings. No focal consolidation identified. No effusions. Heart size is normal. Distended stomach is noted. IMPRESSION: Suboptimal lung volumes with increased bibasal lung markings most likely due to atelectasis. No focal consolidation identified.
--- NOTE | 2016-12-23 13:03 | Diagnostic Imaging Report ---
KUB History: Constipation comparison: CT abdomen and pelvis on 12/21/2016 Findings: There is copious amount of stool noted most pronounced within the descending colon, sigmoid colon the rectum with fecal impaction noted in these regions. Additional generalized gas-filled loops of bowel are noted. Distended stomach is also noted. IMPRESSION: Copious stool most pronounced within the descending colon, sigmoid colon and rectum with areas of fecal impaction. Associated generalized gas-filled loops of bowel are also seen proximally. Correlate clinically for constipation Gaseous distended stomach.
--- NOTE | 2016-12-23 13:18 | General Progress Note ---
Subjective - Review of Systems Service Date: 12/23/16 Subjective: pt c/o: abd discomfort pain is managed at this moment Objective - Results Result Diagrams: 12/23/16 05:43 12/23/16 05:43 Recent Labs: Laboratory Last Values WBC 16.0 Th/cmm (4.8-10.8) H D 12/23/16 05:43 RBC 5.03 Mil/cmm (4.30-5.70) 12/23/16 05:43 Hgb 15.4 gm/dL (13.2-17.3) 12/23/16 05:43 Hct 45.2 % (39.0-49.0) 12/23/16 05:43 MCV 89.8 fl (80-99) 12/23/16 05:43 MCH 30.6 pg (26.0-30.0) H 12/23/16 05:43 MCHC Differential 34.1 pg (28.0-36.0) 12/23/16 05:43 RDW 12.4 % (11.5-20.0) 12/23/16 05:43 Plt Count 207 Th/cmm (150-400) 12/23/16 05:43 MPV 9.3 fl 12/23/16 05:43 Neutrophils % 73.7 % (40.0-80.0) 12/23/16 05:43 Lymphocytes % 16.9 % (20.0-50.0) L 12/23/16 05:43 Monocytes % 8.9 % (2.0-10.0) 12/23/16 05:43 Eosinophils % 0.3 % (0.0-5.0) 12/23/16 05:43 Basophils % 0.2 % (0.0-2.0) 12/23/16 05:43 Sodium 136 mEq/L (136-145) 12/23/16 05:43 Potassium 3.8 mEq/L (3.5-5.1) 12/23/16 05:43 Chloride 109 mEq/L (98-107) H 12/23/16 05:43 Carbon Dioxide 18.5 mEq/L (21.0-31.0) L 12/23/16 05:43 Anion Gap 12.3 (7.0-16.0) 12/23/16 05:43 BUN 23 mg/dL (7-25) 12/23/16 05:43 Creatinine 0.9 mg/dL (0.7-1.3) 12/23/16 05:43 Est GFR ( Amer) > 60.0 ml/min (>90) 12/23/16 05:43 Est GFR (Non-Af Amer) > 60.0 ml/min 12/23/16 05:43 BUN/Creatinine Ratio 25.6 12/23/16 05:43 Glucose 135 mg/dL (70-105) H 12/23/16 05:43 Calcium 9.2 mg/dL (8.6-10.3) 12/23/16 05:43 Total Bilirubin 0.4 mg/dL (0.3-1.0) 12/20/16 14:17 AST 21 U/L (13-39) 12/20/16 14:17 ALT 22 U/L (7-52) 12/20/16 14:17 Alkaline Phosphatase 78 U/L (34-104) 12/20/16 14:17 Total Protein 6.7 gm/dL (6.0-8.3) 12/20/16 14:17 Albumin 4.3 gm/dL (4.2-5.5) 12/20/16 14:17 Globulin 2.4 gm/dL 12/20/16 14:17 Albumin/Globulin Ratio 1.8 (1.0-1.8) 12/20/16 14:17 Urine Source CLEAN C 12/23/16 05:55 Urine Color YELLOW 12/23/16 05:55 Urine Clarity CLEAR (CLEAR) 12/23/16 05:55 Urine pH 7.0 12/23/16 05:55 Ur Specific [place] 1.015 (1.005-1.030) 12/23/16 05:55 Urine Protein NEGATIVE mg/dL (NEGATIVE) 12/23/16 05:55 Urine Glucose (UA) 100 mg/dL (NEGATIVE) H 12/23/16 05:55 Urine Ketones TRACE mg/dL (NEGATIVE) 12/23/16 05:55 Urine Blood NEGATIVE (NEGATIVE) 12/23/16 05:55 Urine Nitrate NEGATIVE (NEGATIVE) 12/23/16 05:55 Urine Bilirubin NEGATIVE (NEGATIVE) 12/23/16 05:55 Urine Urobilinogen 0.2 E.U./dL (0.2 - 1.0) 12/23/16 05:55 Ur Leukocyte Esterase NEGATIVE (NEGATIVE) 12/23/16 05:55 Urine RBC 0-2 /hpf (0-5) H 12/23/16 05:55 Urine WBC 0-2 /hpf (0-5) 12/23/16 05:55 Ur Epithelial Cells FEW /lpf (FEW) 12/23/16 05:55 Urine Bacteria OCCASIONAL /hpf (NONE SEEN) 12/23/16 05:55 - Physical Exam Vitals and I&O: Vital Signs Temp 98.4 F 12/23/16 11:42 Pulse 82 12/23/16 11:42 Resp 17 12/23/16 11:42 BP 142/95 12/23/16 11:42 Pulse Ox 95 12/23/16 11:42 Intake & Output 12/22/16 12/23/16 12/23/16 18:59 06:59 18:59 Intake Total 1000 Balance 1000 Intake: Intake, IV Amount 1000 D5-0.45NS 1,000 ml @ 50 1000 mls/hr IV .Q20H [facility] Rx#: [id number] Active Medications: Current Medications Acetaminophen (Tylenol) 650 mg PO Q4H PRN PRN Reason: PAIN & FEVER >101 Stop: 02/18/17 21:44 Docusate Sodium (Colace) 100 mg PO BID [facility] Stop: 02/19/17 08:59 Last Admin: 12/23/16 09:18 Dose: 100 mg Dextrose/Sodium Chloride (D5-0.45ns) 1,000 mls @ 50 mls/hr IV .Q20H [facility] Stop: 02/18/17 21:41 Last Admin: 12/23/16 11:09 Dose: 50 mls/hr Ceftriaxone Sodium 1 gm/ (Sodium Chloride) 50 mls @ 100 mls/hr IV Q24HR [facility] Stop: 02/18/17 21:59 Last Admin: 12/22/16 21:02 Dose: 100 mls/hr Lorazepam (Ativan) 1 mg IV Q4HR PRN; Protocol PRN Reason: Agitation Stop: 02/19/17 05:49 Last Admin: 12/23/16 05:31 Dose: 1 mg Magnesium Hydroxide (Milk Of Magnesia) 30 ml PO HS PRN PRN Reason: Constipation Stop: 02/19/17 08:45 Last Admin: 12/23/16 11:20 Dose: 30 ml Polyethylene Glycol (Miralax) 17 gm PO DAILY [facility] Stop: 02/19/17 08:59 Last Admin: 12/23/16 09:18 Dose: 17 gm Assessment/Plan - Assessment Assessment: Ileus, obstructive pattern seen on x-ray Hypothyroidism Schizophrenia - Plan Plan: Laxatives GI consult Sepsis workup r/o UTI Labs Monitor vitals
[2016-12-23] MEDS ORDERED: Fleet Enema 135 mL RC ONE (14:49)
[2016-12-23] MEDS ORDERED: MINERAL OIL ENEMA 135 ML BOTTLE RC ONE (18:02)
--- NOTE | 2016-12-23 18:14 | Infectious Disease Prog Note ---
Infectious Disease Subjective - Review of Systems Service Date: 12/23/16 Subjective: Unable to give any history. No BM for last 3 days. KUB showed stool impaction. WBC counts are elevated. Infectious Disease Objective - Results Result Diagrams: 12/23/16 05:43 12/23/16 05:43 Recent Labs: Laboratory Last Values WBC 16.0 Th/cmm (4.8-10.8) H D 12/23/16 05:43 RBC 5.03 Mil/cmm (4.30-5.70) 12/23/16 05:43 Hgb 15.4 gm/dL (13.2-17.3) 12/23/16 05:43 Hct 45.2 % (39.0-49.0) 12/23/16 05:43 MCV 89.8 fl (80-99) 12/23/16 05:43 MCH 30.6 pg (26.0-30.0) H 12/23/16 05:43 MCHC Differential 34.1 pg (28.0-36.0) 12/23/16 05:43 RDW 12.4 % (11.5-20.0) 12/23/16 05:43 Plt Count 207 Th/cmm (150-400) 12/23/16 05:43 MPV 9.3 fl 12/23/16 05:43 Neutrophils % 73.7 % (40.0-80.0) 12/23/16 05:43 Lymphocytes % 16.9 % (20.0-50.0) L 12/23/16 05:43 Monocytes % 8.9 % (2.0-10.0) 12/23/16 05:43 Eosinophils % 0.3 % (0.0-5.0) 12/23/16 05:43 Basophils % 0.2 % (0.0-2.0) 12/23/16 05:43 Sodium 136 mEq/L (136-145) 12/23/16 05:43 Potassium 3.8 mEq/L (3.5-5.1) 12/23/16 05:43 Chloride 109 mEq/L (98-107) H 12/23/16 05:43 Carbon Dioxide 18.5 mEq/L (21.0-31.0) L 12/23/16 05:43 Anion Gap 12.3 (7.0-16.0) 12/23/16 05:43 BUN 23 mg/dL (7-25) 12/23/16 05:43 Creatinine 0.9 mg/dL (0.7-1.3) 12/23/16 05:43 Est GFR ( Amer) > 60.0 ml/min (>90) 12/23/16 05:43 Est GFR (Non-Af Amer) > 60.0 ml/min 12/23/16 05:43 BUN/Creatinine Ratio 25.6 12/23/16 05:43 Glucose 135 mg/dL (70-105) H 12/23/16 05:43 Calcium 9.2 mg/dL (8.6-10.3) 12/23/16 05:43 Total Bilirubin 0.4 mg/dL (0.3-1.0) 12/20/16 14:17 AST 21 U/L (13-39) 12/20/16 14:17 ALT 22 U/L (7-52) 12/20/16 14:17 Alkaline Phosphatase 78 U/L (34-104) 12/20/16 14:17 Total Protein 6.7 gm/dL (6.0-8.3) 12/20/16 14:17 Albumin 4.3 gm/dL (4.2-5.5) 12/20/16 14:17 Globulin 2.4 gm/dL 12/20/16 14:17 Albumin/Globulin Ratio 1.8 (1.0-1.8) 12/20/16 14:17 Urine Source CLEAN C 12/23/16 05:55 Urine Color YELLOW 12/23/16 05:55 Urine Clarity CLEAR (CLEAR) 12/23/16 05:55 Urine pH 7.0 12/23/16 05:55 Ur Specific [place] 1.015 (1.005-1.030) 12/23/16 05:55 Urine Protein NEGATIVE mg/dL (NEGATIVE) 12/23/16 05:55 Urine Glucose (UA) 100 mg/dL (NEGATIVE) H 12/23/16 05:55 Urine Ketones TRACE mg/dL (NEGATIVE) 12/23/16 05:55 Urine Blood NEGATIVE (NEGATIVE) 12/23/16 05:55 Urine Nitrate NEGATIVE (NEGATIVE) 12/23/16 05:55 Urine Bilirubin NEGATIVE (NEGATIVE) 12/23/16 05:55 Urine Urobilinogen 0.2 E.U./dL (0.2 - 1.0) 12/23/16 05:55 Ur Leukocyte Esterase NEGATIVE (NEGATIVE) 12/23/16 05:55 Urine RBC 0-2 /hpf (0-5) H 12/23/16 05:55 Urine WBC 0-2 /hpf (0-5) 12/23/16 05:55 Ur Epithelial Cells FEW /lpf (FEW) 12/23/16 05:55 Urine Bacteria OCCASIONAL /hpf (NONE SEEN) 12/23/16 05:55 - Physical Exam Vitals and I&O: Vital Signs Temp 98.8 F 12/23/16 15:33 Pulse 78 12/23/16 15:33 Resp 18 12/23/16 15:33 BP 137/78 12/23/16 15:33 Pulse Ox 98 12/23/16 15:33 Intake & Output 12/22/16 12/23/16 12/23/16 18:59 06:59 18:59 Intake Total 1000 200 Balance 1000 200 Intake: Intake, IV Amount 1000 D5-0.45NS 1,000 ml @ 50 1000 mls/hr IV .Q20H [facility] Rx#: [id number] Oral 200 Other: # Voids 3 # Bowel Movements 1 Active Medications: Current Medications Acetaminophen (Tylenol) 650 mg PO Q4H PRN PRN Reason: PAIN & FEVER >101 Stop: 02/18/17 21:44 Docusate Sodium (Colace) 100 mg PO BID [facility] Stop: 02/19/17 08:59 Last Admin: 12/23/16 16:39 Dose: 100 mg Dextrose/Sodium Chloride (D5-0.45ns) 1,000 mls @ 50 mls/hr IV .Q20H [facility] Stop: 02/18/17 21:41 Last Admin: 12/23/16 11:09 Dose: 50 mls/hr Ceftriaxone Sodium 1 gm/ (Sodium Chloride) 50 mls @ 100 mls/hr IV Q24HR [facility] Stop: 02/18/17 21:59 Last Admin: 12/22/16 21:02 Dose: 100 mls/hr Lactulose (Cephulac) 30 gm PO TID [facility] Stop: 02/21/17 20:59 Lorazepam (Ativan) 1 mg IV Q4HR PRN; Protocol PRN Reason: Agitation Stop: 02/19/17 05:49 Last Admin: 12/23/16 05:31 Dose: 1 mg Magnesium Hydroxide (Milk Of Magnesia) 30 ml PO HS PRN PRN Reason: Constipation Stop: 02/19/17 08:45 Last Admin: 12/23/16 11:20 Dose: 30 ml Mineral Oil (Mineral Oil 30 Ml) 30 ml PO BID [facility] Stop: 02/21/17 16:59 Last Admin: 12/23/16 16:39 Dose: 30 ml Mineral Oil (Fleet Mineral Oil) 120 ml RC X1 ONE Stop: 12/23/16 18:03 Polyethylene Glycol (Miralax) 17 gm PO DAILY [facility] Stop: 02/19/17 08:59 Last Admin: 12/23/16 09:18 Dose: 17 gm General: no acute distress, cachectic HEENT: atraumatic, normocephalic, PERRLA, EOMI, moist mucous membrane Neck: supple Cardiovascular: S1S2, regular Lungs: clear to auscultation bilaterally, clear to percussion Abdomen: soft, other (G tube site is clear.), no tender, no distended Extremities: no cyanosis, no clubbing, no edema Neurological: awake Skin: intact Infectious Disease Assmt/Plan - Assessment Assessment: Impression: 1. Leukocytosis, likely reactive. 2. Mental retardation. 3. Stool impaction. Recommendation: Will check the cbc again in am. change rocephin to zosyn empirically.
[2016-12-23] MEDS: cefTRIAXone 1 GM in Sodium Chloride 0.9% 50 ML IV SCH (21:30)
[2016-12-23] MEDS: Lactulose 10 Gm/15 mL 30mL UDC PO SCH (21:45)
--- NOTE | 2016-12-24 02:18 | Consultation ---
DATE OF CONSULTATION: 12/22/2016 REFERRING PHYSICIAN: Dr. Waddell. REASON FOR CONSULTATION: Leukocytosis and ileus. HISTORY OF PRESENT ILLNESS: The patient is a 56-year-old male with past medical history of severe hypothyroidism, mentally impaired, schizophrenia, brought in from nursing facility for constipation and no bowel movement for the last 3 days. The patient has severe mental retardation and unable to give any history. On initial evaluation, the patient was afebrile and WBC count was 6400; it went up to 11,000. KUB revealed fecal impaction, constipation and ileus. Chest x-ray shows no active disease. CT scan was reviewed. ALLERGIES: NKDA. MEDICATIONS: As per medication reconciliation sheet. REVIEW OF SYSTEMS: The patient is a poor historian. The patient has no fever. The patient has constipation. PHYSICAL EXAMINATION: CURRENT VITAL SIGNS: Shows temperature is 98.2, pulse ____, respirations 18, blood pressure ____. GENERAL: The patient is comfortable, lying in the bed, not in acute distress. HEENT: Head is normocephalic, atraumatic. Oral cavity moist, pink tongue. Eyes: Pallor is present, no icterus. Pupils PERRLA, EOMI. NECK: Supple. No JVD, no carotid bruit. Trachea in midline. CHEST: Bilateral breath sounds. No crackles or wheezing. HEART: S1 and S2 within normal limits. Regular rhythm. No murmur, no gallop. ABDOMEN: Soft, nontender, nondistended. Bowel sounds present. EXTREMITIES: No cyanosis, no clubbing, no edema. NEUROLOGIC: ____ mentally retarded. LABORATORY DATA: WBC 11,000; hemoglobin 16.2; hematocrit 47.1; platelets are ____ 78.7%. Sodium is 136, potassium ____, chloride 108, bicarbonate is 21, BUN is 10, creatinine 1 and glucose is ____. MRSA screen is negative. KUB shows fecal impaction. CT scan of the abdomen and pelvis revealed ileus. IMPRESSION: 1. Leukocytosis, most likely due to ileus. 2. Mental retardation. 3. Hypothyroidism. RECOMMENDATIONS: We will continue Rocephin and give laxative. Check the CBC in the morning. Thank you, Dr. Waddell, for involving me in the care of this patient. JOB# [id number]
--- NOTE | 2016-12-24 05:28 | Progress Notes ---
DATE: 12/23/2016 Case was discussed with staff of the patient. The patient continues to be selectively mute, continues to have poor insight. Continues to be unable to make safe plan for self-care, easily agitated. However, he would not answer any questions. He continues to be internally preoccupied. He has been compliant with the medication with no side effects. The patient needs to follow up with staff upon discharge. Thank you very much for allowing me to participate in the care of this most interesting gentleman. JOB# [id number]
[2016-12-24 07:03] LABS: % BASOPHILS 0.2 % (0.0-2.0); % EOSINOPHILS 2.2 % (0.0-5.0); % LYMPHOCYTES 26.5 % (20.0-50.0); % MONOCYTES 9.3 % (2.0-10.0); % NEUTROPHILS 61.8 % (40.0-80.0); HEMATOCRIT 45.5 % (39.0-49.0); HEMOGLOBIN 15.6 gm/dL (13.2-17.3); MEAN CELL VOLUME 89.4 fl (80-99); MEAN CORPUSCULAR HEMOGLOBIN 30.7 pg (26.0-30.0); MEAN CORPUSCULAR HGB CONC 34.4 pg (28.0-36.0); MEAN PLATELET VOLUME 9.5 fl; PLATELET COUNT 217 Th/cmm (150-400); RED BLOOD COUNT 5.09 Mil/cmm (4.30-5.70); RED CELL DISTRIBUTION WIDTH 12.7 % (11.5-20.0)
[2016-12-24 07:58] LABS: WHITE BLOOD COUNT 12.9 Th/cmm (4.8-10.8)
[2016-12-24] MEDS: Lactulose 10 Gm/15 mL 30mL UDC PO SCH ×2 (08:53→14:40)
[2016-12-24] MEDS: POLYETHYLENE GLYCOL 3350 17 GM PACK PO SCH (08:53)
--- NOTE | 2016-12-24 16:10 | General Progress Note ---
Subjective - Review of Systems Events since last encounter: pt. is improving no acute distress WBC's still elevated Subjective: pt c/o: abd discomfort pain is managed at this moment Objective - Results Result Diagrams: 12/24/16 06:14 12/23/16 05:43 Recent Labs: Laboratory Last Values WBC 12.9 Th/cmm (4.8-10.8) H 12/24/16 06:14 RBC 5.09 Mil/cmm (4.30-5.70) 12/24/16 06:14 Hgb 15.6 gm/dL (13.2-17.3) 12/24/16 06:14 Hct 45.5 % (39.0-49.0) 12/24/16 06:14 MCV 89.4 fl (80-99) 12/24/16 06:14 MCH 30.7 pg (26.0-30.0) H 12/24/16 06:14 MCHC Differential 34.4 pg (28.0-36.0) 12/24/16 06:14 RDW 12.7 % (11.5-20.0) 12/24/16 06:14 Plt Count 217 Th/cmm (150-400) 12/24/16 06:14 MPV 9.5 fl 12/24/16 06:14 Neutrophils % 61.8 % (40.0-80.0) 12/24/16 06:14 Lymphocytes % 26.5 % (20.0-50.0) 12/24/16 06:14 Monocytes % 9.3 % (2.0-10.0) 12/24/16 06:14 Eosinophils % 2.2 % (0.0-5.0) 12/24/16 06:14 Basophils % 0.2 % (0.0-2.0) 12/24/16 06:14 Sodium 136 mEq/L (136-145) 12/23/16 05:43 Potassium 3.8 mEq/L (3.5-5.1) 12/23/16 05:43 Chloride 109 mEq/L (98-107) H 12/23/16 05:43 Carbon Dioxide 18.5 mEq/L (21.0-31.0) L 12/23/16 05:43 Anion Gap 12.3 (7.0-16.0) 12/23/16 05:43 BUN 23 mg/dL (7-25) 12/23/16 05:43 Creatinine 0.9 mg/dL (0.7-1.3) 12/23/16 05:43 Est GFR ( Amer) > 60.0 ml/min (>90) 12/23/16 05:43 Est GFR (Non-Af Amer) > 60.0 ml/min 12/23/16 05:43 BUN/Creatinine Ratio 25.6 12/23/16 05:43 Glucose 135 mg/dL (70-105) H 12/23/16 05:43 Calcium 9.2 mg/dL (8.6-10.3) 12/23/16 05:43 Total Bilirubin 0.4 mg/dL (0.3-1.0) 12/20/16 14:17 AST 21 U/L (13-39) 12/20/16 14:17 ALT 22 U/L (7-52) 12/20/16 14:17 Alkaline Phosphatase 78 U/L (34-104) 12/20/16 14:17 Total Protein 6.7 gm/dL (6.0-8.3) 12/20/16 14:17 Albumin 4.3 gm/dL (4.2-5.5) 12/20/16 14:17 Globulin 2.4 gm/dL 12/20/16 14:17 Albumin/Globulin Ratio 1.8 (1.0-1.8) 12/20/16 14:17 Urine Source CLEAN C 12/23/16 05:55 Urine Color YELLOW 12/23/16 05:55 Urine Clarity CLEAR (CLEAR) 12/23/16 05:55 Urine pH 7.0 12/23/16 05:55 Ur Specific [place] 1.015 (1.005-1.030) 12/23/16 05:55 Urine Protein NEGATIVE mg/dL (NEGATIVE) 12/23/16 05:55 Urine Glucose (UA) 100 mg/dL (NEGATIVE) H 12/23/16 05:55 Urine Ketones TRACE mg/dL (NEGATIVE) 12/23/16 05:55 Urine Blood NEGATIVE (NEGATIVE) 12/23/16 05:55 Urine Nitrate NEGATIVE (NEGATIVE) 12/23/16 05:55 Urine Bilirubin NEGATIVE (NEGATIVE) 12/23/16 05:55 Urine Urobilinogen 0.2 E.U./dL (0.2 - 1.0) 12/23/16 05:55 Ur Leukocyte Esterase NEGATIVE (NEGATIVE) 12/23/16 05:55 Urine RBC 0-2 /hpf (0-5) H 12/23/16 05:55 Urine WBC 0-2 /hpf (0-5) 12/23/16 05:55 Ur Epithelial Cells FEW /lpf (FEW) 12/23/16 05:55 Urine Bacteria OCCASIONAL /hpf (NONE SEEN) 12/23/16 05:55 - Physical Exam Vitals and I&O: Vital Signs Temp 98.7 F 12/24/16 16:00 Pulse 77 12/24/16 16:00 Resp 18 12/24/16 16:00 BP 143/72 12/24/16 16:00 Pulse Ox 96 12/24/16 16:00 Intake & Output 12/23/16 12/24/16 12/24/16 18:59 06:59 18:59 Intake Total 200 Balance 200 Intake: Oral 200 Other: # Voids 3 # Bowel Movements 1 3 Active Medications: Current Medications Acetaminophen (Tylenol) 650 mg PO Q4H PRN PRN Reason: PAIN & FEVER >101 Stop: 02/18/17 21:44 Docusate Sodium (Colace) 100 mg PO BID [facility] [place] Stop: 02/19/17 08:59 Last Admin: 12/24/16 08:53 Dose: 100 mg Dextrose/Sodium Chloride (D5-0.45ns) 1,000 mls @ 50 mls/hr IV .Q20H HATTIE Stop: 02/18/17 21:41 Last Admin: 12/23/16 11:09 Dose: 50 mls/hr Ceftriaxone Sodium 1 gm/ (Sodium Chloride) 50 mls @ 100 mls/hr IV Q24HR HATTIE Stop: 02/18/17 21:59 Last Admin: 12/23/16 21:30 Dose: 100 mls/hr Lactulose (Cephulac) 30 gm PO TID HATTIE Stop: 02/21/17 20:59 Last Admin: 12/24/16 14:40 Dose: 30 gm Lorazepam (Ativan) 1 mg IV Q4HR PRN; Protocol PRN Reason: Agitation Stop: 02/19/17 05:49 Last Admin: 12/23/16 05:31 Dose: 1 mg Magnesium Hydroxide (Milk Of Magnesia) 30 ml PO HS PRN PRN Reason: Constipation Stop: 02/19/17 08:45 Last Admin: 12/23/16 11:20 Dose: 30 ml Mineral Oil (Mineral Oil 30 Ml) 30 ml PO BID HATTIE Stop: 02/21/17 16:59 Last Admin: 12/24/16 08:53 Dose: 30 ml Polyethylene Glycol (Miralax) 17 gm PO DAILY HATTIE Stop: 02/19/17 08:59 Last Admin: 12/24/16 08:53 Dose: 17 gm Risperidone (Risperdal) 0.5 mg PO BID HATTIE PRN Reason: Protocol Stop: 02/22/17 08:59 Last Admin: 12/24/16 09:07 Dose: 0.5 mg General: Alert, Oriented x3, Cooperative, No acute distress, Other (cachectic) HEENT: Atraumatic, PERRLA, EOMI Neck: Supple Cardiovascular: Regular rate Lungs: Clear to auscultation Abdomen: Bowel sounds, Soft (G-tube site visible ) Assessment/Plan - Assessment Assessment: Stool impaction Leukocytosis Hypothyroidism Mental [id number] Schizophrenia - Plan Plan: IV abxs Labs Monitor vitals
--- NOTE | 2016-12-25 01:51 | Progress Notes ---
DATE: 12/24/2016 SUBJECTIVE: Chart reviewed and the patient interviewed. Also, discussed the patient's condition with the staff and reviewed records and labs. The patient continued to be confused and is easily agitated. The patient also is still unable to answer any of my questions coherently. The patient also still needs lots of redirections. The patient also is still having problems with his anger and unable to follow directions most probably because of his mental abilities. Otherwise, the patient has been compliant with taking medications. ASSESSMENT: The patient is still psychotic and agitated. TREATMENT PLAN: We will start the patient on Risperdal. We will adjust the dose. We will continue to monitor his behavior, and we will continue to follow up. [facility]# [id number]
--- NOTE | 2016-12-27 16:16 | Discharge Summary ---
DATE OF DISCHARGE: 12/24/2016 COURSE OF HOSPITAL TREATMENT: The patient is admitted from [facility] and care to the Emergency Room due to constipation and changes in bowel habits. From the Emergency Room, CT scan of the abdomen was done and found that the patient is having ileus. The patient was then admitted to the Med/Surg floor wherein the patient was monitored for changes in bowel and repeat KUB was done and showed that the patient has constipation, on which, GI specialist also following up with the patient, otherwise, afterwards the patient was discharged back to [facility] to follow up with Dr. Waddell. Stable condition upon discharge. JOB# [id number]
== END 2016-12-24 17:37 | DRG 388 ==
LOC: ER 13:16 → MSI 16:40
PROVIDERS: ADMIT Internal Medicine; ATTEND Internal Medicine
DX: K56.7 Ileus, unspecified (principal); G93.41 Metabolic encephalopathy; F72 Severe intellectual disabilities; F20.9 Schizophrenia, unspecified; E03.9 Hypothyroidism, unspecified; E86.0 Dehydration; K59.00 Constipation, unspecified; K56.41 Fecal impaction; F29 Unspecified psychosis not due to a substance or known physiological condition
CPT/HCPCS: 36415-UA; 71010-TC; 74000-TC; 74020-TC; 80048-TC; 80053-TC; 81001-TC; 85025-TC; 87086-90; 93005; J0696; J1200; J1630; J2060; Z7610

== ENCOUNTER 2017-05-02 14:23 | Inpatient (IN) | payer MEDICARE, MEDICAID ==
[2017-05-02] MEDS ORDERED: Sodium Chloride 0.9% 500 ML IV ONE (14:28)
--- NOTE | 2017-05-02 14:28 | ED Physician Chart ---
Chief Complaint/HPI - Patient Information Date Seen:: 05/02/17 Time Seen:: 14:25 Chief Complaint:: abdominal pain History of Present Illness:: 56-year-old male with severe intellectual disability, a verbal, brought in by ambulance from care facility with acute, intermittent, severe, abdominal pain 3 days. It is associated constipation for 3 days. History limited as patient is averbal and has severe intellectual disability History provided by EMS and EMS run sheet Allergies:: Allergies Allergy/AdvReac Type Severity Reaction Status Date / Time No Known Allergies Allergy Verified 01/27/17 18:13 Historian:: EMS, Medical Records Review:: Nurse's Note Reviewed, EMS run form Reviewed Review of Systems - Review of Systems Other: Complete system review otherwise unremarkable except as noted in history of present illness. Past Medical History - Past Medical History Past Medical History: Thyroid disorder, Other Family History: None Social History: Non Smoker, No Alcohol, No Drug Use, Care Facility Surgical History: None Psychiatricy History: Schizophrenia Medication: Reviewed Family Medical History - Family Member Mother History Unknown: Yes Ethnicity: Unknown Living Status: Unknown Physical Exam - Physical Examination Other:: INITIAL VITAL SIGNS: Reviewed by me GENERAL: Alert but does not interact. Averbal. No acute distress HEAD: Head is normocephalic and atraumatic EYES: EOMI. PERRL. No scleral icterus. No conjunctival injection ENT: Moist mucous membranes. NECK: Supple. No masses. Full range of motion RESPIRATORY: No tachypnea. Clear breath sounds bilaterally. No wheezing, rales, or rhonchi CV: Regular rate and rhythm. No murmurs, rubs, or gallops ABDOMEN: Soft, distended, tender to palpation. No guarding. No rebound. No masses. EXTREMITIES: No deformity. No cyanosis. No edema. SKIN: Warm and dry. No obvious rashes. NEUROLOGIC: Alert and oriented. Face is symmetric. Speech is normal. Moves all extremities equally. Motor and sensory distally intact. Labs/Radiology/EKG Results - Radiology Results Results: CT abdomen and pelvis without contrast Markedly distended stool filled large bowel and rectum consistent with severe constipation and fecal impaction. Mildly dilated small bowel - EKG Interpretations Comments:: 12-lead EKG Interpretation by Frandy Unger MD: Normal Sinus Rhythm with ventricular rate of 95 beats per minute Left axis deviation Normal intervals No acute ST or T wave changes. No obvious STEMI ED Septic Shock - . Is Septic Shock (SBP<90, OR Lactate>4 mmol\L) present?: No Reassessment (Disposition) - Reassessment Reassessment:: This patient is septic with severe constipation and fecal impaction. He has an elevated white blood cell count greater than 12, heart rate greater than 90, lactic acid greater than 2. We did give IV Rocephin to treat possible translocation of bacteria given the severe obstipation/constipation. We also gave IV fluids. We also gave IV analgesics. We did intramuscular Bentyl as well. Likely having bowel spasming from the constipation. This patient is averbal and severely intellectually challenged. This patient will need further workup and treatment given the severity of this constipation causing sepsis. Discussed the case with the admitting physician. The patient is admitted for further work up and treatment. Critical Care Time: 30 minutes Treatments/Evaluations: Close monitoring and treatment of unstable vital signs, cardiorespiratory, and neurologic status, while maintaining tight balance of fluid, respiratory, and cardiac interventions. This time includes discussing the case with the patient and the patient's family. This time does not include all procedures stated elsewhere in this record. This time also includes reviewing old records, labs and radiological studies. This time includes examining and re-examining the patient. Additionally, this time also includes arranging care with admitting and consulting physicians. Reassessment Condition:: Improved - Diagnosis Diagnosis:: Sepsis Severe constipation and fecal impaction Hypercalcemia - Patient Disposition Discharge/Transfer:: Acute Care w/in this hosp Spoke to:: Teddy Waddell Time:: 15:37 Condition at Disposition:: Stable
[2017-05-02] MEDS ORDERED: Dicyclomine 10 mg/mL 2mL Amp IM STA (14:29)
[2017-05-02 14:53] LABS: % BASOPHILS 0.8 % (0.0-2.0); % EOSINOPHILS 0.1 % (0.0-5.0); % LYMPHOCYTES 11.1 % (20.0-50.0); % MONOCYTES 3.5 % (2.0-10.0); % NEUTROPHILS 84.5 % (40.0-80.0); HEMATOCRIT 49.8 % (39.0-49.0); HEMOGLOBIN 16.6 gm/dL (13.2-17.3); MEAN CORPUSCULAR HEMOGLOBIN 29.7 pg (26.0-30.0); MEAN CORPUSCULAR HGB CONC 33.4 pg (28.0-36.0); NEUTROPHILE ABSOLUTE 10.3 Th/cmm (1.8-8.0); PLATELET COUNT 207 Th/cmm (150-400); RED BLOOD COUNT 5.59 Mil/cmm (4.30-5.70)
[2017-05-02 14:55] LABS: WHITE BLOOD COUNT 12.2 Th/cmm (4.8-10.8)
[2017-05-02] MEDS ORDERED: Dicyclomine 10 mg/mL 2mL Amp IM ONE (14:55)
[2017-05-02 15:05] LABS: ALB/GLOB RATIO 1.5 (1.0-1.8); ALKALINE PHOSPHATASE 96 U/L (34-104); AMYLASE SERUM 28 U/L (29-103); ANION GAP 11.9 (7.0-16.0); BILIRUBIN,TOTAL 0.5 mg/dL (0.3-1.0); BUN - UREA NITROGEN 19 mg/dL (7-25); BUN/CREATININE RATIO 15.8; CALCIUM SERUM 10.6 mg/dL (8.6-10.3); CARBON DIOXIDE 26.1 mEq/L (21.0-31.0); CHLORIDE 105 mEq/L (98-107); CREATININE - SERUM 1.2 mg/dL (0.7-1.3); GLUCOSE 167 mg/dL (70-105); LIPASE 41 U/L (11-82); SGOT 26 U/L (13-39); SGPT/ALT 32 U/L (7-52); SODIUM SERUM 138 mEq/L (136-145)
[2017-05-02] MEDS ORDERED: cefTRIAXone 1 GM in Sodium Chloride 0.9% 50 ML IV ONE (15:15)
[2017-05-02 16:25] LABS: URINE BILIRUBIN NEGATIVE (NEGATIVE); URINE BLOOD NEGATIVE (NEGATIVE); URINE GLUCOSE (UA) NEGATIVE (NEGATIVE); URINE KETONE NEGATIVE (NEGATIVE); URINE PH 8.5 (4.6 - 8.0); URINE PROTEIN NEGATIVE (NEGATIVE); URINE UROBILINOGEN 0.2 E.U./dL (0.2 - 1.0)
[2017-05-02 16:29] LABS: URINE COLOR YELLOW
[2017-05-02 16:30] LABS: URINE BACTERIA OCCASIONAL /hpf (NONE SEEN); URINE EPITHELIAL CELLS RARE /lpf (FEW); URINE RBC NONE SEEN /hpf (0-5); URINE WBC 0-2 /hpf (0-5)
[2017-05-02] MEDS ORDERED: CALCIUM CITRATE 200 MG PO PRN (20:09)
[2017-05-02] MEDS ORDERED: Dicyclomine 10 mg Cap PO PRN (20:09)
[2017-05-02] MEDS ORDERED: Magnesium Hydroxide (MOM) 30 mL UDC PO PRN (20:35)
[2017-05-02] MEDS: D5-0.45NS 1,000 ML IV SCH (21:33)
[2017-05-03] MEDS: Levothyroxine 0.1 Mg Tab PO SCH (06:37)
[2017-05-03 07:10] LABS: % BASOPHILS 0.1 % (0.0-2.0); % EOSINOPHILS 0.4 % (0.0-5.0); % LYMPHOCYTES 16.9 % (20.0-50.0); % MONOCYTES 8.3 % (2.0-10.0); % NEUTROPHILS 74.3 % (40.0-80.0); HEMATOCRIT 49.4 % (39.0-49.0); HEMOGLOBIN 16.5 gm/dL (13.2-17.3); MEAN CELL VOLUME 90.1 fl (80-99); MEAN CORPUSCULAR HEMOGLOBIN 30.1 pg (26.0-30.0); MEAN CORPUSCULAR HGB CONC 33.4 pg (28.0-36.0); MEAN PLATELET VOLUME 9.2 fl; NEUTROPHILE ABSOLUTE 7.1 Th/cmm (1.8-8.0); PLATELET COUNT 208 Th/cmm (150-400); RED BLOOD COUNT 5.49 Mil/cmm (4.30-5.70); RED CELL DISTRIBUTION WIDTH 12.6 % (11.5-20.0)
[2017-05-03 07:12] LABS: WHITE BLOOD COUNT 9.5 Th/cmm (4.8-10.8)
[2017-05-03 07:48] LABS: ALB/GLOB RATIO 1.4 (1.0-1.8); ALKALINE PHOSPHATASE 98 U/L (34-104); ANION GAP 9.4 (7.0-16.0); BILIRUBIN,TOTAL 0.6 mg/dL (0.3-1.0); BUN - UREA NITROGEN 14 mg/dL (7-25); CALCIUM SERUM 9.5 mg/dL (8.6-10.3); CARBON DIOXIDE 23.4 mEq/L (21.0-31.0); CHLORIDE 104 mEq/L (98-107); GLUCOSE 124 mg/dL (70-105); POTASSIUM SERUM 4.8 mEq/L (3.5-5.1); SGOT 27 U/L (13-39); SGPT/ALT 27 U/L (7-52); SODIUM SERUM 132 mEq/L (136-145)
[2017-05-03] MEDS: Calcium Carb/Vit D 500 mg/200 U Tab PO SCH ×2 (08:45→17:13)
[2017-05-03] MEDS ORDERED: LUBIPROSTONE 24 MCG PO SCH (09:00)
[2017-05-03] MEDS ORDERED: LINACLOTIDE 290 MCG PO SCH (09:00)
[2017-05-03] MEDS: D5-0.45NS 1,000 ML IV SCH (13:09)
[2017-05-03] MEDS: cefTRIAXone 1 GM in Sodium Chloride 0.9% 50 ML IV SCH (15:13)
[2017-05-03] MEDS: Magnesium Hydroxide (MOM) 30 mL UDC PO SCH ×2 (18:08→21:05)
[2017-05-04] MEDS: D5-0.45NS 1,000 ML IV SCH (03:02)
[2017-05-04] MEDS: Levothyroxine 0.1 Mg Tab PO SCH (06:39)
[2017-05-04] MEDS: Magnesium Hydroxide (MOM) 30 mL UDC PO SCH ×5 (06:40→21:48)
--- NOTE | 2017-05-04 09:05 | Diagnostic Imaging Report ---
Exam: CT examination of pelvis HISTORY: Abdominal pain Total DLP equals 535 CTDI equals 9.0 Multiple contiguous thin section the abdomen pelvis obtained from lower thorax to the pubic symphysis without the administration of oral or intravenous contrast material. No prior studies available comparison The study demonstrates normal aeration of lung parenchyma the bases. There is evidence for significant distention of stomach with foot content and air fluid level The liver parenchyma is intact. The spleen is normal. The pancreas is normal. The gallbladder is intact. There is significant distention of small bowel loops consistent with ileus versus colonic obstruction due to severe fecal impaction. Kidneys demonstrate no evidence of obstructive uropathy or nephrolithiasis. The urinary bladder is intact. Bony structures demonstrate no evidence for lytic or blastic changes. IMPRESSION: Severely impacted colon. Ileus, distention of small bowel loops due to fecal impaction distally.
[2017-05-04] MEDS: Calcium Carb/Vit D 500 mg/200 U Tab PO SCH ×2 (10:04→17:36)
--- NOTE | 2017-05-04 12:29 | Diagnostic Imaging Report ---
CHEST X-RAY: AP view INDICATION: Pneumonia COMPARISON: 12/23/2016 FINDINGS: The patient is rotated. No focal consolidation or effusions. Heart size is normal. Gas distended loops of bowel and stomach are seen along the upper abdomen. IMPRESSION: No focal consolidation identified. Gaseous distended loops of bowel and stomach along the upper abdomen.
--- NOTE | 2017-05-04 20:54 | Consultation ---
DATE OF CONSULTATION: 05/04/2017 PRIMARY CARE PHYSICIAN: Dr. Waddell. HISTORY OF PRESENT ILLNESS: This is a 56-year-old male who was brought to the Emergency Room with complaint of abdominal pain for 3 days. The patient lives in a alf and started having abdominal pains, gradually got worse and decided to come to Emergency Room, where the patient was found to have sepsis and fecal impaction. Infectious consultation was called for further treatment. PAST MEDICAL HISTORY: Hypothyroidism, mental retardation, and depression. SOCIAL HISTORY: Nonsmoker. FAMILY HISTORY: Negative. ALLERGIES: None. REVIEW OF SYSTEMS: A 14-point review of systems negative except above. PHYSICAL EXAMINATION: GENERAL: The patient is awake, not following any verbal commands. VITAL SIGNS: Temperature is 98.3, pulse 75, respirations 20, and blood pressure 113/78. HEENT: Mild pallor, no icterus or plaque. NECK: Supple. No thyromegaly. LUNGS: Breath sounds bilateral vesicular. CARDIOVASCULAR: S1, S2. ABDOMEN: Soft. Bowel sounds present. Generalized abdominal tenderness. NODES: No thyroid and no cervical lymph nodes. IMAGING AND LABORATORY DATA: Present CT of abdomen and pelvis shows impacted colon with ileus and small bowel distention due to fecal impaction. White count is 12,000, hemoglobin is 6 g, and platelets 207,000. UA negative except for wbc's, rare epithelial cells, occasional bacteria. DIAGNOSES: Fecal impaction, possible diverticulitis. PLAN: The patient was started on Rocephin. GI consultation. We will get a chest x-ray, supportive care. Rest of the care as ordered in [facility]. Thank you Dr. Waddell for this consultation. JOB# [id number]
[2017-05-05] MEDS: Magnesium Hydroxide (MOM) 30 mL UDC PO SCH ×2 (06:42→06:43)
[2017-05-05] MEDS: D5-0.45NS 1,000 ML IV SCH ×2 (06:44→22:13)
[2017-05-05] MEDS: Levothyroxine 0.1 Mg Tab PO SCH (06:45)
[2017-05-05] MEDS: Calcium Carb/Vit D 500 mg/200 U Tab PO SCH ×2 (09:11→16:43)
[2017-05-05] MEDS ORDERED: MINERAL OIL ENEMA 135 ML BOTTLE RC ONE (14:00)
[2017-05-05] MEDS ORDERED: Magnesium Hydroxide (MOM) 30 mL UDC ONE (14:53)
[2017-05-05] MEDS: cefTRIAXone 1 GM in Sodium Chloride 0.9% 50 ML IV SCH (14:55)
[2017-05-05] MEDS: POLYETHYLENE GLYCOL 3350 17 GM PACK PO SCH (16:43)
--- NOTE | 2017-05-05 18:25 | History & Physical ---
ADMIT DATE: 05/02/2017 HISTORY OF PRESENT ILLNESS: The patient is well known to me from following him at his board and care. A 56-year-old male with intellectual disability was brought to the Emergency Room for abdominal pain that has lasted for 3 days, was also constipated for the last 3 days. The patient was worked up. The patient was admitted for electrolyte imbalance, abdominal pain, etiology to be determined, and history of thyroid disorder. PAST MEDICAL HISTORY: As noted above. ____ history noted. The patient has underlying schizophrenia. PHYSICAL EXAMINATION: GENERAL: Alert, oriented 54-year-old male patient. VITAL SIGNS: As noted. HEAD: Normal. ENT: Normal. NECK: Supple, nontender. LUNGS: Clear. CARDIOVASCULAR SYSTEM: S1, S2 heard. ABDOMEN: Soft, slightly tender ____. SKIN: Normal. NEUROLOGIC: Intact. LABORATORY DATA: CAT scan showed a lot of fluid-filled large bowel and rectum, severe constipation, fecal impaction and mildly dilated small bowel. EKG showed normal sinus rhythm and ____ of white count was elevated. DIAGNOSES: Sepsis, severe constipation, fecal impaction, colitis, hypercalcemia and history of schizophrenia, history of intellectual disability. The patient was admitted for IV fluids and antibiotics and workup of his abdominal pain. [facility]# [id number]
[2017-05-06] MEDS: Levothyroxine 0.1 Mg Tab PO SCH (07:07)
[2017-05-06] MEDS: POLYETHYLENE GLYCOL 3350 17 GM PACK PO SCH (09:18)
[2017-05-06] MEDS: Calcium Carb/Vit D 500 mg/200 U Tab PO SCH (09:18)
--- NOTE | 2017-05-06 09:40 | Consultation ---
DATE OF CONSULTATION: 05/05/2017 CONSULTING PHYSICIAN: Dr. Waddell. REASON FOR CONSULTATION: Abdominal pain and obstipation. HISTORY OF PRESENT ILLNESS: The patient is a 56-year-old male with past medical history significant for mental retardation, hypothyroidism, and depression, who was brought into the Emergency Room yesterday complaining of abdominal pain for 3 days. The patient resides in the nursing facility and it was noted that he was complaining of pain in the abdomen that did not relieve itself after a few days and thus the decision was made to have him come to the Emergency Room. Once in the Emergency Room, he was found to have a white blood cell count of 12.2 and a lactic acid of 2.04 and thus it was thought he was septic and started on antibiotics. Imaging performed in the Emergency Room was considered as an abdomen and pelvis CT and showed a severely impacted colon with suspected fecal impaction in the rectum. Today the patient has had several bowel movements overnight after disimpaction via the nursing staff and is now lying in bed with less distress. PAST MEDICAL HISTORY: Mental retardation, hypothyroidism, depression. PAST SURGICAL HISTORY: No documented surgical history. FAMILY HISTORY: No history of GI cancers. ALLERGIES: No known drug allergies. SOCIAL HISTORY: The patient does not smoke or use alcohol. REVIEW OF SYSTEMS: A 12-point review of systems was performed and is negative other than the pertinent positives mentioned in HPI. PHYSICAL EXAMINATION: VITAL SIGNS: Blood pressure 110/76, pulse is 65, temperature 96.6 Fahrenheit, oxygen saturation 96% on room air, respiratory rate 18. GENERAL: The patient is lying flat in bed. He is in no apparent distress, although he is not currently verbalizing. HEENT: No obvious scleral icterus. Pupils are equal and reactive. Moist mucous membranes. NECK: Supple, no lymphadenopathy or thyromegaly. CHEST: Clear to auscultation bilaterally. CARDIOVASCULAR: S1 and S2 are present, regular rate and rhythm. ABDOMEN: Soft. No obvious tenderness to palpation. Bowel sounds are present. No obvious guarding or rebound. EXTREMITIES: No pitting edema. Positive pulses. SKIN: No jaundice or obvious rashes. LABORATORY DATA: On admission, white blood cell count 12.2, hemoglobin 16.6, platelets 207. Sodium 138, BUN 19, creatinine 1.2, AST 26, ALT 32. Lactic acid 2.04, lipase 41. IMAGING STUDIES: Abdomen and pelvis CT performed in the Emergency Room was without contrast showed significant distention of the stomach with food content air fluid level. The spleen is normal. Pancreas is normal. Gallbladder is intact. Significant small bowel loops consistent with ileus versus colonic obstruction due to severe fecal impaction. IMPRESSION: This is a 56-year-old male with mental retardation, limited verbal abilities, who presented with apparent abdominal pain for the past 3 days. In the ER, he was found to have distended loops of bowel concerning for fecal obstruction. 1. Abdominal pain. 2. Fecal obstruction and impaction. DISCUSSION: Since the patient's admission, he has been disimpacted by the nursing staff rectally last night and today and there are reports that the patient is now having soft brown stool. Thus, I suspect that his obstipation is resolving. His abdominal pain should be lessen. He is also receiving antibiotic therapy with ceftriaxone. PLAN: 1. We will ensure the patient is on a strong bowel regimen and stool softeners. He should receive regular enema. 2. Get an abdominal plain film to track his progress. 3. Antibiotics as per primary and ID. 4. Can consider outpatient colonoscopy for colorectal screening. I will continue to follow. Thank you for allowing me to participate in the care of this patient. Please call with any further questions. JOB# [id number]
[2017-05-06] MEDS: cefTRIAXone 1 GM in Sodium Chloride 0.9% 50 ML IV SCH (13:52)
--- NOTE | 2017-05-06 14:08 | GI Progress Note ---
Subjective - Review of Systems Service Date: 05/06/17 Subjective: Pt crying today, but RN reports he is having regular soft brown BMs Objective - Results Result Diagrams: 05/03/17 06:23 05/03/17 06:23 Recent Labs: Laboratory Last Values WBC 9.5 Th/cmm (4.8-10.8) D 05/03/17 06:23 RBC 5.49 Mil/cmm (4.30-5.70) 05/03/17 06:23 Hgb 16.5 gm/dL (13.2-17.3) 05/03/17 06:23 Hct 49.4 % (39.0-49.0) H 05/03/17 06:23 MCV 90.1 fl (80-99) 05/03/17 06:23 MCH 30.1 pg (26.0-30.0) H 05/03/17 06:23 MCHC Differential 33.4 pg (28.0-36.0) 05/03/17 06:23 RDW 12.6 % (11.5-20.0) 05/03/17 06:23 Plt Count 208 Th/cmm (150-400) 05/03/17 06:23 MPV 9.2 fl 05/03/17 06:23 Neutrophils % 74.3 % (40.0-80.0) 05/03/17 06:23 Lymphocytes % 16.9 % (20.0-50.0) L 05/03/17 06:23 Monocytes % 8.3 % (2.0-10.0) 05/03/17 06:23 Eosinophils % 0.4 % (0.0-5.0) 05/03/17 06:23 Basophils % 0.1 % (0.0-2.0) 05/03/17 06:23 Sodium 132 mEq/L (136-145) L 05/03/17 06:23 Potassium 4.8 mEq/L (3.5-5.1) 05/03/17 06:23 Chloride 104 mEq/L (98-107) 05/03/17 06:23 Carbon Dioxide 23.4 mEq/L (21.0-31.0) 05/03/17 06:23 Anion Gap 9.4 (7.0-16.0) 05/03/17 06:23 BUN 14 mg/dL (7-25) 05/03/17 06:23 Creatinine 1.0 mg/dL (0.7-1.3) 05/03/17 06:23 Est GFR ( Amer) > 60.0 ml/min (>90) 05/03/17 06:23 Est GFR (Non-Af Amer) > 60.0 ml/min 05/03/17 06:23 BUN/Creatinine Ratio 14.0 05/03/17 06:23 Glucose 124 mg/dL (70-105) H 05/03/17 06:23 Whole Bld Lactic Acid 1.75 mmol/L (0.60-1.99) 05/02/17 16:54 Calcium 9.5 mg/dL (8.6-10.3) 05/03/17 06:23 Total Bilirubin 0.6 mg/dL (0.3-1.0) 05/03/17 06:23 AST 27 U/L (13-39) 05/03/17 06:23 ALT 27 U/L (7-52) 05/03/17 06:23 Alkaline Phosphatase 98 U/L (34-104) 05/03/17 06:23 Total Protein 7.3 gm/dL (6.0-8.3) 05/03/17 06:23 Albumin 4.3 gm/dL (4.2-5.5) 05/03/17 06:23 Globulin 3.0 gm/dL 05/03/17 06:23 Albumin/Globulin Ratio 1.4 (1.0-1.8) 05/03/17 06:23 Amylase 28 U/L (29-103) L 05/02/17 14:39 Lipase 41 U/L (11-82) 05/02/17 14:39 TSH 6.06 uIU/ml (0.34-5.60) H 05/06/17 04:50 Urine Source CLEAN C 05/02/17 15:30 Urine Color YELLOW 05/02/17 15:30 Urine Clarity CLEAR (CLEAR) 05/02/17 15:30 Urine pH 8.5 (4.6 - 8.0) 05/02/17 15:30 Ur Specific [place] 1.015 (1.005-1.030) 05/02/17 15:30 Urine Protein NEGATIVE mg/dL (NEGATIVE) 05/02/17 15:30 Urine Glucose (UA) NEGATIVE mg/dL (NEGATIVE) 05/02/17 15:30 Urine Ketones NEGATIVE mg/dL (NEGATIVE) 05/02/17 15:30 Urine Blood NEGATIVE (NEGATIVE) 05/02/17 15:30 Urine Nitrate NEGATIVE (NEGATIVE) 05/02/17 15:30 Urine Bilirubin NEGATIVE (NEGATIVE) 05/02/17 15:30 Urine Urobilinogen 0.2 E.U./dL (0.2 - 1.0) 05/02/17 15:30 Ur Leukocyte Esterase NEGATIVE (NEGATIVE) 05/02/17 15:30 Urine RBC NONE SEEN /hpf (0-5) 05/02/17 15:30 Urine WBC 0-2 /hpf (0-5) 05/02/17 15:30 Ur Epithelial Cells RARE /lpf (FEW) 05/02/17 15:30 Urine Bacteria OCCASIONAL /hpf (NONE SEEN) 05/02/17 15:30 - Physical Exam Vitals and I&O: Vital Signs Temp 98.1 F 05/06/17 11:50 Pulse 76 05/06/17 11:50 Resp 15 05/06/17 11:50 BP 114/72 05/06/17 11:50 Pulse Ox 97 05/06/17 11:50 Intake & Output 05/05/17 05/06/17 05/06/17 18:59 06:59 18:59 Intake Total 50 2500 Balance 50 2500 Weight (lbs) 75.07 kg Intake: Intake, IV Amount 50 1000 D5-0.45NS 1,000 ml @ 75 1000 mls/hr IV .[id number] [facility] Rx #:[id number] cefTRIAXone 1 gm In 50 Sodium Chloride 0.9% 50 ml @ 100 mls/hr IV Q24HR [facility] Rx#:[id number] Oral 1400 Other 100 Other: # Voids 2 # Bowel Movements 0 Stool Characteristics Soft Soft Soft Brown Brown Formed Active Medications: Current Medications Acetaminophen (Tylenol) 650 mg PO Q6HR PRN PRN Reason: Fever > 101 Stop: 07/01/17 20:08 Calcium/Vitamin D (Oscal W/Vitamin D) 1 tab PO BID HATTIE Stop: 07/02/17 08:59 Last Admin: 05/06/17 09:18 Dose: 1 tab Dicyclomine HCl (Bentyl) 10 mg PO TID PRN PRN Reason: Irritable Bowel Stop: 07/01/17 20:08 Diphenhydramine HCl (Benadryl) 50 mg PO HS HATTIE Stop: 07/01/17 20:59 Last Admin: 05/05/17 22:13 Dose: 50 mg Divalproex Sodium (Depakote Dr) 500 mg PO BID HATTIE PRN Reason: Protocol Stop: 07/02/17 08:59 Last Admin: 05/06/17 09:16 Dose: 500 mg Docusate Sodium (Colace) 100 mg PO TID HATTIE Stop: 07/04/17 13:59 Last Admin: 05/06/17 13:52 Dose: 100 mg Haloperidol (Haldol) 1 mg PO BID HATTIE PRN Reason: Protocol Stop: 07/02/17 08:59 Ceftriaxone Sodium 1 gm/ (Sodium Chloride) 50 mls @ 100 mls/hr IV Q24HR HATTIE Stop: 07/02/17 14:59 Last Admin: 05/06/17 13:52 Dose: 100 mls/hr Dextrose/Sodium Chloride (D5-0.45ns) 1,000 mls @ 75 mls/hr IV .[id number] HATTIE Stop: 07/01/17 20:04 Last Admin: 05/05/17 22:13 Dose: 75 mls/hr Levothyroxine Sodium (Synthroid) 0.1 mg PO QDAC HATTIE Stop: 07/02/17 07:29 Last Admin: 05/06/17 07:07 Dose: 0.1 mg Loratadine (Claritin) 10 mg PO DAILY HATTIE Stop: 07/02/17 08:59 Last Admin: 05/06/17 09:16 Dose: 10 mg Lorazepam (Ativan) 1 mg PO Q12HR PRN; Protocol PRN Reason: Anxiety Stop: 07/01/17 20:19 Lorazepam (Ativan) 1 mg PO TID HATTIE PRN Reason: Protocol Stop: 07/01/17 20:59 Last Admin: 05/06/17 13:52 Dose: 1 mg Miscellaneous (Calcium Citrate [Calcitrate]) 200 mg PO PRN PRN PRN Reason: Constipation Miscellaneous (Linaclotide [Linzess]) 290 mcg PO DAILY HATTIE Stop: 07/02/17 08:59 Miscellaneous (Lubiprostone [Amitiza]) 24 mcg PO BID [facility] Stop: 07/02/17 08:59 Olanzapine (Zyprexa) 15 mg PO HS HATTIE PRN Reason: Protocol Stop: 07/01/17 20:59 Polyethylene Glycol (Miralax) 17 gm PO BID HATTIE Stop: 07/04/17 16:59 Last Admin: 05/06/17 09:18 Dose: 17 gm Promethazine HCl (Phenergan) 6.25 mg PO Q6HR PRN PRN Reason: Cough Stop: 07/01/17 20:36 Quetiapine Fumarate (Seroquel) 400 mg PO BID HATTIE PRN Reason: Protocol Stop: 07/02/17 08:59 Risperidone (Risperdal) 2 mg PO DAILY HATTIE Stop: 07/02/17 08:59 Simethicone (Mylicon) 80 mg PO TID [facility] Stop: 07/01/17 20:59 Last Admin: 05/06/17 13:52 Dose: 80 mg Tamsulosin HCl (Flomax) 0.4 mg PO DAILY HATTIE Stop: 07/02/17 08:59 Last Admin: 05/06/17 09:18 Dose: 0.4 mg Vitamin D (Vitamin D) 400 iu PO DAILY HATTIE Stop: 07/02/17 08:59 Last Admin: 05/06/17 09:18 Dose: 400 iu General: Alert (A/Ox0) Abdomen: Soft (no obvious tenderness, no guard or rebound) Assessment/Plan - Problem List Patient Problems: All Active Problems h/o constipation (Acute) Acute intestinal obstruction (Acute) K56.60 h/o bowel disorder (Acute) h/o mental delay (Acute) h/o severe malnutrition (Acute) - Assessment Assessment: # Fecal impaction # Colitis Impaction now relieved with disempaction maneuvers and laxatives. Having regular BMs Plan: - ensure adequate laxative regimen going forward - 7 day course of abx recommended
--- NOTE | 2017-05-06 15:08 | General Progress Note ---
Subjective - Review of Systems Events since last encounter: patient continues to c/o abd pain patient did ave a bowel movement today Objective - Results Result Diagrams: 05/03/17 06:23 05/03/17 06:23 Recent Labs: Laboratory Last Values WBC 9.5 Th/cmm (4.8-10.8) D 05/03/17 06:23 RBC 5.49 Mil/cmm (4.30-5.70) 05/03/17 06:23 Hgb 16.5 gm/dL (13.2-17.3) 05/03/17 06:23 Hct 49.4 % (39.0-49.0) H 05/03/17 06:23 MCV 90.1 fl (80-99) 05/03/17 06:23 MCH 30.1 pg (26.0-30.0) H 05/03/17 06:23 MCHC Differential 33.4 pg (28.0-36.0) 05/03/17 06:23 RDW 12.6 % (11.5-20.0) 05/03/17 06:23 Plt Count 208 Th/cmm (150-400) 05/03/17 06:23 MPV 9.2 fl 05/03/17 06:23 Neutrophils % 74.3 % (40.0-80.0) 05/03/17 06:23 Lymphocytes % 16.9 % (20.0-50.0) L 05/03/17 06:23 Monocytes % 8.3 % (2.0-10.0) 05/03/17 06:23 Eosinophils % 0.4 % (0.0-5.0) 05/03/17 06:23 Basophils % 0.1 % (0.0-2.0) 05/03/17 06:23 Sodium 132 mEq/L (136-145) L 05/03/17 06:23 Potassium 4.8 mEq/L (3.5-5.1) 05/03/17 06:23 Chloride 104 mEq/L (98-107) 05/03/17 06:23 Carbon Dioxide 23.4 mEq/L (21.0-31.0) 05/03/17 06:23 Anion Gap 9.4 (7.0-16.0) 05/03/17 06:23 BUN 14 mg/dL (7-25) 05/03/17 06:23 Creatinine 1.0 mg/dL (0.7-1.3) 05/03/17 06:23 Est GFR ( Amer) > 60.0 ml/min (>90) 05/03/17 06:23 Est GFR (Non-Af Amer) > 60.0 ml/min 05/03/17 06:23 BUN/Creatinine Ratio 14.0 05/03/17 06:23 Glucose 124 mg/dL (70-105) H 05/03/17 06:23 Whole Bld Lactic Acid 1.75 mmol/L (0.60-1.99) 05/02/17 16:54 Calcium 9.5 mg/dL (8.6-10.3) 05/03/17 06:23 Total Bilirubin 0.6 mg/dL (0.3-1.0) 05/03/17 06:23 AST 27 U/L (13-39) 05/03/17 06:23 ALT 27 U/L (7-52) 05/03/17 06:23 Alkaline Phosphatase 98 U/L (34-104) 05/03/17 06:23 Total Protein 7.3 gm/dL (6.0-8.3) 05/03/17 06:23 Albumin 4.3 gm/dL (4.2-5.5) 05/03/17 06:23 Globulin 3.0 gm/dL 05/03/17 06:23 Albumin/Globulin Ratio 1.4 (1.0-1.8) 05/03/17 06:23 Amylase 28 U/L (29-103) L 05/02/17 14:39 Lipase 41 U/L (11-82) 05/02/17 14:39 TSH 6.06 uIU/ml (0.34-5.60) H 05/06/17 04:50 Urine Source CLEAN C 05/02/17 15:30 Urine Color YELLOW 05/02/17 15:30 Urine Clarity CLEAR (CLEAR) 05/02/17 15:30 Urine pH 8.5 (4.6 - 8.0) 05/02/17 15:30 Ur Specific [place] 1.015 (1.005-1.030) 05/02/17 15:30 Urine Protein NEGATIVE mg/dL (NEGATIVE) 05/02/17 15:30 Urine Glucose (UA) NEGATIVE mg/dL (NEGATIVE) 05/02/17 15:30 Urine Ketones NEGATIVE mg/dL (NEGATIVE) 05/02/17 15:30 Urine Blood NEGATIVE (NEGATIVE) 05/02/17 15:30 Urine Nitrate NEGATIVE (NEGATIVE) 05/02/17 15:30 Urine Bilirubin NEGATIVE (NEGATIVE) 05/02/17 15:30 Urine Urobilinogen 0.2 E.U./dL (0.2 - 1.0) 05/02/17 15:30 Ur Leukocyte Esterase NEGATIVE (NEGATIVE) 05/02/17 15:30 Urine RBC NONE SEEN /hpf (0-5) 05/02/17 15:30 Urine WBC 0-2 /hpf (0-5) 05/02/17 15:30 Ur Epithelial Cells RARE /lpf (FEW) 05/02/17 15:30 Urine Bacteria OCCASIONAL /hpf (NONE SEEN) 05/02/17 15:30 - Physical Exam Vitals and I&O: Vital Signs Temp 98.1 F 05/06/17 14:13 Pulse 76 05/06/17 14:13 Resp 15 05/06/17 14:13 BP 114/72 05/06/17 14:13 Pulse Ox 97 05/06/17 14:13 Intake & Output 05/05/17 05/06/17 05/06/17 18:59 06:59 18:59 Intake Total 50 2500 Balance 50 2500 Weight (lbs) 75.07 kg Intake: Intake, IV Amount 50 1000 D5-0.45NS 1,000 ml @ 75 1000 mls/hr IV .[id number] [facility] Rx #:[id number] cefTRIAXone 1 gm In 50 Sodium Chloride 0.9% 50 ml @ 100 mls/hr IV Q24HR [facility] Rx#:[id number] Oral 1400 Other 100 Other: # Voids 2 # Bowel Movements 0 Stool Characteristics Soft Soft Soft Brown Brown Formed Active Medications: Current Medications Acetaminophen (Tylenol) 650 mg PO Q6HR PRN PRN Reason: Fever > 101 Stop: 07/01/17 20:08 Calcium/Vitamin D (Oscal W/Vitamin D) 1 tab PO BID [facility] Stop: 07/02/17 08:59 Last Admin: 05/06/17 09:18 Dose: 1 tab Dicyclomine HCl (Bentyl) 10 mg PO TID PRN PRN Reason: Irritable Bowel Stop: 07/01/17 20:08 Diphenhydramine HCl (Benadryl) 50 mg PO HS [facility] Stop: 07/01/17 20:59 Last Admin: 05/05/17 22:13 Dose: 50 mg Divalproex Sodium (Depakote Dr) 500 mg PO BID [facility]IE PRN Reason: Protocol Stop: 07/02/17 08:59 Last Admin: 05/06/17 09:16 Dose: 500 mg Docusate Sodium (Colace) 100 mg PO TID [facility] Stop: 07/04/17 13:59 Last Admin: 05/06/17 13:52 Dose: 100 mg Haloperidol (Haldol) 1 mg PO BID [facility] PRN Reason: Protocol Stop: 07/02/17 08:59 Ceftriaxone Sodium 1 gm/ (Sodium Chloride) 50 mls @ 100 mls/hr IV Q24HR [facility] Stop: 07/02/17 14:59 Last Admin: 05/06/17 13:52 Dose: 100 mls/hr Dextrose/Sodium Chloride (D5-0.45ns) 1,000 mls @ 75 mls/hr IV .[id number] [facility] Stop: 07/01/17 20:04 Last Admin: 05/05/17 22:13 Dose: 75 mls/hr Levothyroxine Sodium (Synthroid) 0.1 mg PO QDAC [facility] Stop: 07/02/17 07:29 Last Admin: 05/06/17 07:07 Dose: 0.1 mg Loratadine (Claritin) 10 mg PO DAILY [facility] Stop: 07/02/17 08:59 Last Admin: 05/06/17 09:16 Dose: 10 mg Lorazepam (Ativan) 1 mg PO Q12HR PRN; Protocol PRN Reason: Anxiety Stop: 07/01/17 20:19 Lorazepam (Ativan) 1 mg PO TID HATTIE PRN Reason: Protocol Stop: 07/01/17 20:59 Last Admin: 05/06/17 13:52 Dose: 1 mg Miscellaneous (Calcium Citrate [Calcitrate]) 200 mg PO PRN PRN PRN Reason: Constipation Miscellaneous (Linaclotide [Linzess]) 290 mcg PO DAILY [facility] Stop: 07/02/17 08:59 Miscellaneous (Lubiprostone [Amitiza]) 24 mcg PO BID [facility] Stop: 07/02/17 08:59 Olanzapine (Zyprexa) 15 mg PO HS [facility] PRN Reason: Protocol Stop: 07/01/17 20:59 Polyethylene Glycol (Miralax) 17 gm PO BID [facility] Stop: 07/04/17 16:59 Last Admin: 05/06/17 09:18 Dose: 17 gm Promethazine HCl (Phenergan) 6.25 mg PO Q6HR PRN PRN Reason: Cough Stop: 07/01/17 20:36 Quetiapine Fumarate (Seroquel) 400 mg PO BID [facility] PRN Reason: Protocol Stop: 07/02/17 08:59 Risperidone (Risperdal) 2 mg PO DAILY [facility] Stop: 07/02/17 08:59 Simethicone (Mylicon) 80 mg PO TID [facility] Stop: 07/01/17 20:59 Last Admin: 05/06/17 13:52 Dose: 80 mg Tamsulosin HCl (Flomax) 0.4 mg PO DAILY [facility] Stop: 07/02/17 08:59 Last Admin: 05/06/17 09:18 Dose: 0.4 mg Vitamin D (Vitamin D) 400 iu PO DAILY [facility] Stop: 07/02/17 08:59 Last Admin: 05/06/17 09:18 Dose: 400 iu General: Alert (A/Ox0), No acute distress HEENT: Atraumatic Cardiovascular: Regular rate, Normal S1, Normal S2 Abdomen: Bowel sounds, Soft (no obvious tenderness, no guard or rebound) Assessment/Plan - Problem List Patient Problems: All Active Problems h/o constipation (Acute) Acute intestinal obstruction (Acute) K56.60 h/o bowel disorder (Acute) h/o mental delay (Acute) h/o severe malnutrition (Acute) - Plan Plan: monitor vitals/diet labs f/up consultants Nutritional Asmnt/Malnutr-PDOC - Dietary Evaluation Malnutrition Findings (Please click <Entered> for more info): Nutritional Asmnt/Malnutrition Start: 05/04/17 15: 39 Text: Status: Complete Freq: Document 05/04/17 15:39 GSUN (Rec: 05/04/17 16:00 GSELI [email or web address]) Nutritional Asmnt/Malnutrition Patient General Information Nutritional Screening High Risk Screening Diagnosis ER: Sepsis, severe constipation and fecal impaction, hypercalcemia Pertinent Medical Hx/Surgical Hx ER: severe intellectual disability, thyroid disorder, schizophrenia Subjective Information 56 year old male from SNF. CT: distended stool filled large bowel and rectum consistent with severe constipation and fecal impaction. Large loose BM on per RN notes. Pt made eye contact but non-verbal, unable to itnerview due to cognition . Spoke to EDGER MACHINE OPERATOR, EDGER MACHINE OPERATOR stated pt is a feeder with good appetite , ate 100% breakfast today, no difficulties noted. Avg PO intake 75-100% of meals yesterday, meeting nutritional needs. Pt appeared scared with blanket pulled up, unable to compelte physical assessment. No severe wasting to temporals. Current Diet Order/ Nutrition Support Pureed Pertinent Medications Oscal W/Vitamin D, D5-0.45ns, Colace, Haldol, MOM, Seroquel, Vtamin D Pertinent Labs Reviewed. Nutritional Hx/Data Height 1.73 m Height (Calculated Centimeters) 172.7 Current Weight (lbs) 76.34 kg Weight (Calculated Kilograms) 76.3 Weight (Calculated Grams) 17739.6 [place] Body Weight 154 Weight Status Approriate GI Symptoms Skin Integrity/Comment: Fazal Lombardo. Woudn care 05/04: skin is fair. Current %PO Good (75-100%) Estimated Nutritional Goals BEE in Kcals: Using Current wt Calories/Kcals/Kg CBW 76.3kg Kcals Calculated 2289kcal (30kcla/kg) Protein: Using Current wt Protein Calculated 92-114g (1.2-1.5g/kg) Fluid: ml 2289ml (1ml/kcal) Nutritional Problem 2. Problem Problem Increased kcal and prot needs related to Etiology hypermetabolic state Signs/Symptoms: aeb sepsis 1. Problem Problem Altered GI function related to Etiology unknown aeb Signs/Symptoms: severe constipation and fecal impaction Intervention/Recommendation Comments 1. Conitnue with current diet order. Avg PO intake is adequate. Expected Outcomes/Goals Expected Outcomes/Goals 1. PO intake conitnue to meet at least 75% of estimated nutritional needs.
--- NOTE | 2017-05-06 18:15 | Infectious Disease Prog Note ---
Infectious Disease Subjective - Review of Systems Service Date: 05/06/17 Subjective: cc sepsis hpi- pt d/w pmd schedule for discharge to [facility] nno fevr o/e vss chets claera bd soft ext pulse dx sepsis improved plan d/c abx Infectious Disease Objective - Results Result Diagrams: 05/03/17 06:23 05/03/17 06:23 Recent Labs: Laboratory Last Values WBC 9.5 Th/cmm (4.8-10.8) D 05/03/17 06:23 RBC 5.49 Mil/cmm (4.30-5.70) 05/03/17 06:23 Hgb 16.5 gm/dL (13.2-17.3) 05/03/17 06:23 Hct 49.4 % (39.0-49.0) H 05/03/17 06:23 MCV 90.1 fl (80-99) 05/03/17 06:23 MCH 30.1 pg (26.0-30.0) H 05/03/17 06:23 MCHC Differential 33.4 pg (28.0-36.0) 05/03/17 06:23 RDW 12.6 % (11.5-20.0) 05/03/17 06:23 Plt Count 208 Th/cmm (150-400) 05/03/17 06:23 MPV 9.2 fl 05/03/17 06:23 Neutrophils % 74.3 % (40.0-80.0) 05/03/17 06:23 Lymphocytes % 16.9 % (20.0-50.0) L 05/03/17 06:23 Monocytes % 8.3 % (2.0-10.0) 05/03/17 06:23 Eosinophils % 0.4 % (0.0-5.0) 05/03/17 06:23 Basophils % 0.1 % (0.0-2.0) 05/03/17 06:23 Sodium 132 mEq/L (136-145) L 05/03/17 06:23 Potassium 4.8 mEq/L (3.5-5.1) 05/03/17 06:23 Chloride 104 mEq/L (98-107) 05/03/17 06:23 Carbon Dioxide 23.4 mEq/L (21.0-31.0) 05/03/17 06:23 Anion Gap 9.4 (7.0-16.0) 05/03/17 06:23 BUN 14 mg/dL (7-25) 05/03/17 06:23 Creatinine 1.0 mg/dL (0.7-1.3) 05/03/17 06:23 Est GFR ( Amer) > 60.0 ml/min (>90) 05/03/17 06:23 Est GFR (Non-Af Amer) > 60.0 ml/min 05/03/17 06:23 BUN/Creatinine Ratio 14.0 05/03/17 06:23 Glucose 124 mg/dL (70-105) H 05/03/17 06:23 Whole Bld Lactic Acid 1.75 mmol/L (0.60-1.99) 05/02/17 16:54 Calcium 9.5 mg/dL (8.6-10.3) 05/03/17 06:23 Total Bilirubin 0.6 mg/dL (0.3-1.0) 05/03/17 06:23 AST 27 U/L (13-39) 05/03/17 06:23 ALT 27 U/L (7-52) 05/03/17 06:23 Alkaline Phosphatase 98 U/L (34-104) 05/03/17 06:23 Total Protein 7.3 gm/dL (6.0-8.3) 05/03/17 06:23 Albumin 4.3 gm/dL (4.2-5.5) 05/03/17 06:23 Globulin 3.0 gm/dL 05/03/17 06:23 Albumin/Globulin Ratio 1.4 (1.0-1.8) 05/03/17 06:23 Amylase 28 U/L (29-103) L 05/02/17 14:39 Lipase 41 U/L (11-82) 05/02/17 14:39 TSH 6.06 uIU/ml (0.34-5.60) H 05/06/17 04:50 Urine Source CLEAN C 05/02/17 15:30 Urine Color YELLOW 05/02/17 15:30 Urine Clarity CLEAR (CLEAR) 05/02/17 15:30 Urine pH 8.5 (4.6 - 8.0) 05/02/17 15:30 Ur Specific [place] 1.015 (1.005-1.030) 05/02/17 15:30 Urine Protein NEGATIVE mg/dL (NEGATIVE) 05/02/17 15:30 Urine Glucose (UA) NEGATIVE mg/dL (NEGATIVE) 05/02/17 15:30 Urine Ketones NEGATIVE mg/dL (NEGATIVE) 05/02/17 15:30 Urine Blood NEGATIVE (NEGATIVE) 05/02/17 15:30 Urine Nitrate NEGATIVE (NEGATIVE) 05/02/17 15:30 Urine Bilirubin NEGATIVE (NEGATIVE) 05/02/17 15:30 Urine Urobilinogen 0.2 E.U./dL (0.2 - 1.0) 05/02/17 15:30 Ur Leukocyte Esterase NEGATIVE (NEGATIVE) 05/02/17 15:30 Urine RBC NONE SEEN /hpf (0-5) 05/02/17 15:30 Urine WBC 0-2 /hpf (0-5) 05/02/17 15:30 Ur Epithelial Cells RARE /lpf (FEW) 05/02/17 15:30 Urine Bacteria OCCASIONAL /hpf (NONE SEEN) 05/02/17 15:30 - Physical Exam Vitals and I&O: Vital Signs Temp 97.3 F 05/06/17 15:10 Pulse 78 05/06/17 15:10 Resp 20 05/06/17 15:10 BP 114/84 05/06/17 15:10 Pulse Ox 95 05/06/17 15:10 Intake & Output 05/05/17 05/06/17 05/06/17 18:59 06:59 18:59 Intake Total 50 2500 700 Balance 50 2500 700 Weight (lbs) 75.07 kg 75.07 kg Intake: Intake, IV Amount 50 1000 D5-0.45NS 1,000 ml @ 75 1000 mls/hr IV .[id number] [facility] Rx #:[id number] cefTRIAXone 1 gm In 50 Sodium Chloride 0.9% 50 ml @ 100 mls/hr IV Q24HR [facility] Rx#:[id number] Oral 1400 700 Other 100 Other: # Voids 2 3 # Bowel Movements 0 2 Stool Characteristics Soft Soft Soft Brown Brown Formed Infectious Disease Assmt/Plan - Problem List Patient Problems: All Active Problems h/o constipation (Acute) Acute intestinal obstruction (Acute) K56.60 h/o bowel disorder (Acute) h/o mental delay (Acute) h/o severe malnutrition (Acute) Nutritional Asmnt/Malnutr-PDOC - Dietary Evaluation Malnutrition Findings (Please click <Entered> for more info): Nutritional Asmnt/Malnutrition Start: 05/04/17 15: 39 Text: Status: Complete Freq: Document 05/04/17 15:39 MAVIS (Rec: 05/04/17 16:00 GSELI [email or web address]) Nutritional Asmnt/Malnutrition Patient General Information Nutritional Screening High Risk Screening Diagnosis ER: Sepsis, severe constipation and fecal impaction, hypercalcemia Pertinent Medical Hx/Surgical Hx ER: severe intellectual disability, thyroid disorder, schizophrenia Subjective Information 56 year old male from SNF. CT: distended stool filled large bowel and rectum consistent with severe constipation and fecal impaction. Large loose BM on per RN notes. Pt made eye contact but non-verbal, unable to itnerview due to cognition . Spoke to RESTORATIVE CARE TECHNICIAN, RESTORATIVE CARE TECHNICIAN stated pt is a feeder with good appetite , ate 100% breakfast today, no difficulties noted. Avg PO intake 75-100% of meals yesterday, meeting nutritional needs. Pt appeared scared with blanket pulled up, unable to compelte physical assessment. No severe wasting to temporals. Current Diet Order/ Nutrition Support Pureed Pertinent Medications Oscal W/Vitamin D, D5-0.45ns, Colace, Haldol, MOM, Seroquel, Vtamin D Pertinent Labs Reviewed. Nutritional Hx/Data Height 1.73 m Height (Calculated Centimeters) 172.7 Current Weight (lbs) 76.34 kg Weight (Calculated Kilograms) 76.3 Weight (Calculated Grams) 41249.6 [place] Body Weight 154 Weight Status Approriate GI Symptoms Skin Integrity/Comment: Fazal Lombardo. Wocristinan care 05/04: skin is fair. Current %PO Good (75-100%) Estimated Nutritional Goals BEE in Kcals: Using Current wt Calories/Kcals/Kg CBW 76.3kg Kcals Calculated 2289kcal (30kcla/kg) Protein: Using Current wt Protein Calculated 92-114g (1.2-1.5g/kg) Fluid: ml 2289ml (1ml/kcal) Nutritional Problem 2. Problem Problem Increased kcal and prot needs related to Etiology hypermetabolic state Signs/Symptoms: aeb sepsis 1. Problem Problem Altered GI function related to Etiology unknown aeb Signs/Symptoms: severe constipation and fecal impaction Intervention/Recommendation Comments 1. Conitnue with current diet order. Avg PO intake is adequate. Expected Outcomes/Goals Expected Outcomes/Goals 1. PO intake conitnue to meet at least 75% of estimated nutritional needs.
--- NOTE | 2017-05-06 22:48 | Progress Notes ---
DATE: 05/06/2017 Case was discussed with staff of the patient, reviewed records. The patient has been compliant with the medications. She is more alert. She is able to participate in meaningful conversation more. She said she has not hear voices in days. She denies any current intent to harm herself or anybody. She is sleeping better, eating better. Still working on discharge plans. No side effects with the medication, no sedation, no nausea, no extrapyramidal symptoms and she is not acting in anyway dangers to work with the patient in group therapy, milieu therapy, adjust medication as needed. JOB# [id number]
--- NOTE | 2017-05-11 21:21 | Admit Criteria Form ---
Admit Criteria Forms - Admit Criteria Diagnosis: ABDOMINAL PAIN Clinical Indications for Admission to Inpatient Care ( douglas/check or initial the applicable condition/criteria): Admission is indicated for ANY ONE of the following (1)(2)(3)(4)(5)(6): [ ]I. Surgery needed that cannot be performed on ambulatory basis [ ]II. Peritoneal signs present (eg, rebound tenderness, rigidity) [ ]III. Evaluation requires patient to not eat or drink for extended period ( eg, more than 24 hours). [X ]IV. Inpatient admission required[B] rather than observation care (see Abdominal Pain: Observation Care guideline as appropriate) because of ANY ONE of the following(7)(8)(9): [ ] a) Hemodynamic instability [ ]b) Severe pain requiring acute inpatient management [X ]c) Identification of etiology or finding that requires inpatient care (eg, aortic dissection, free air,bowel ischemia)(10) [ ]d) Absent bowel sounds with complete ileus (11) [ ]e) Signs of intestinal obstruction[C] [ ]f) Suspected toxic megacolon [ ]g) Severe electrolyte abnormalities requiring inpatient care [ ]h) High fever or infection requiring inpatient admission as indicated by ANY ONE of the following (12)(13): [ ]i) Appropriate outpatient or observation care antimicrobial treatment unavailable, not effective, or not feasible [ ]ii) Documented bacteremia [ ]iii) Temperature greater than 104.9 degrees F (40.5 degrees C) (oral) [ ]iv) Temperature greater than 103.1 degrees F (39.5 degrees C) ( oral) or less than 96.8 degrees F (36 degrees C) (rectal) that does not respond to all emergency treatment measures [ ]i) IV fluid required rather than oral rehydration to replace significant ongoing (eg, for greater than 24 hours) losses (greater than 3 L/m2 per day)(14)(15) [ ]j) Percutaneous or open drainage (eg, abscess, biliary tract) procedures [ ]k) Parenteral nutrition regimen that must be implemented on inpatient basis [ ]l) Other condition, treatment, or monitoring requiring inpatient admission Extended stay beyond goal length of stay may be needed for (1)(3)(4)(10)(16): [ ]a) Surgery (e.g., colectomy, revascularization procedure) [ ]b) Persistent abdominal pain with suspected intra-abdominal process [ ]c) Diagnosed condition requiring continued stay (e.g., pancreatitis, complicated diverticulitis) The original [facility] content created by [facility] has been revised. The portions of the content which have been revised are identified through the use of italic text or in bold, and [facility] has neither reviewed nor approved the modified material.All other unmodified content is copyright [facility]. Please see references footnoted in the original [facility] edition 2017 Admit Criteria Met?: Yes
== END 2017-05-06 15:15 | disposition home or self-care (01) | DRG 872 ==
LOC: ER 14:23 → MSI 16:51
PROVIDERS: ADMIT Internal Medicine; ATTEND Internal Medicine
DX: A41.9 Sepsis, unspecified organism (principal); F72 Severe intellectual disabilities; K57.92 Diverticulitis of intestine, part unspecified, without perforation or abscess without bleeding; E83.52 Hypercalcemia; F20.9 Schizophrenia, unspecified; K56.41 Fecal impaction; E03.9 Hypothyroidism, unspecified; F32.9 Major depressive disorder, single episode, unspecified; K52.9 Noninfective gastroenteritis and colitis, unspecified
CPT/HCPCS: 36415-UA; 71010-TC; 80053-TC; 81001-TC; 82150-TC; 83605; 83690-TC; 84443-TC; 85025-TC; 93005; 96375; J0500; J0696; J1885; J7040; Z7502; Z7610

== ENCOUNTER 2017-10-04 12:28 | Emergency (ER) | payer MEDICARE, MEDICAID ==
--- NOTE | 2017-10-04 13:24 | ED Physician Chart ---
ED Chief Complaint/HPI - Patient Information Date Seen:: 10/04/17 Time Seen:: 12:59 Chief Complaint:: Abdominal pain History of Present Illness:: 56 yo male was brought from a [facility] facility to ER for evaluation of abdominal pain and distention for 4 days. The patient did not have BM for 2 days. He was previously hospitalized for constipation. The patient had autism and mental retardation. He was a poor historian. Allergies:: Allergies Allergy/AdvReac Type Severity Reaction Status Date / Time No Known Allergies Allergy Verified 10/04/17 12:44 Vitals:: Vital Signs - 8 hr 10/04/17 12:44 Temp 98.2 F HR 98 RR 18 BP 115/78 O2 Sat % 98 ED Review of Systems - Review of Systems General/Constitutional: No fever Skin: No rash Head: No headache Eyes: No pain ENT: No nasal drainage Neck: No neck pain Cardio Vascular: No chest pain Pulmonary: No SOB GI: Pain, Constipation Musculoskeletal: No bone or joint pain ED Past Medical History - Past Medical History Past Medical History: Thyroid disorder (hypothyroidism, BPH), Other (Autism, mental retardation, BPH) Social History: Non Smoker, No Alcohol, No Drug Use Psychiatricy History: Schizophrenia, Other (Psychosis, anxiety) Family Medical History - Family Member Mother History Unknown: Yes Ethnicity: Unknown Living Status: Unknown ED Physical Exam - Physical Examination General/Constitutional: Awake, Alert Head: Atraumatic Eyes: PERRL Skin: No skin lesions ENMT: Nasal exam nl Neck: No nuchal rigidity Respiratory: No Wheeze/Rhonchi/Rales Cardio Vascular: RRR, No murmur, gallop, rubs, NL S1 S2 Other GI comments:: distended Extremities: No edema Neuro/Psych: Normal motor strength ED Labs/Radiology/EKG Results - Radiology Results Results: CXR: no consolidation CT abd/pelvis: massive stool and large amount of urine in the bladder ED Assessment - Assessment General Assessment: Constipation Urinary retention Dehydration Assessment/Comments:: NS 1L IV bolus Daley catheter (d/c'd before discharge) Fleet enema D/c to board [facility] F/u PCP for constipation and BPH ED Septic Shock - . Is Septic Shock (SBP<90, OR Lactate>4 mmol\L) present?: No - <6hrs of presentation: Vital Signs: Vital Signs - 8 hr 10/04/17 12:44 Temp 98.2 F HR 98 RR 18 BP 115/78 O2 Sat % 98 ED Reassessment (Disposition) - Reassessment Reassessment:: Large amount of bowel movement after fleet enema treatment. Daley was removed. Reassessment Condition:: Improved - Patient Disposition Discharge/Transfer:: Residential/Boarding Care ED Discharge Plan - Patient Disposition Admit/Discharge/Transfer: PT DISCHARGED HOME Condition at Disposition: Stable Instructions: Constipation, Adult, Urinary Retention, Acute, Male, [id number]
[2017-10-04 13:46] LABS: % EOSINOPHILS 0.9 % (0.0-5.0); % LYMPHOCYTES 39.4 % (20.0-50.0); % MONOCYTES 8.3 % (2.0-10.0); % NEUTROPHILS 50.4 % (40.0-80.0); BASOPHILE ABSOLUTE 0.1 Th/cumm (0-0.2); EOSINOPHILE ABSOLUTE 0.1 Th/cmm (0.1-0.4); HEMOGLOBIN 14.8 gm/dL (12-16); LYMPHOCYTE ABSOLUTE 2.3 Th/cmm (1.5-3.0); MEAN CELL VOLUME 91.7 fl (80-99); MEAN CORPUSCULAR HEMOGLOBIN 31.5 pg (26.0-30.0); MEAN CORPUSCULAR HGB CONC 34.3 pg (28.0-36.0); MEAN PLATELET VOLUME 7.9 fl; MONOCYTE ABSOLUTE 0.5 Th/cmm (0.3-1.0); NEUTROPHILE ABSOLUTE 2.9 Th/cmm (1.8-8.0); PLATELET COUNT 209 Th/cmm (150-400); RED BLOOD COUNT 4.71 Mil/cmm (4.30-5.70); RED CELL DISTRIBUTION WIDTH 12.7 % (11.5-20.0)
[2017-10-04 13:47] LABS: HEMATOCRIT 43.2 % (41.0-60); WHITE BLOOD COUNT 5.9 Th/cmm (4.8-10.8)
[2017-10-04 14:03] LABS: ALB/GLOB RATIO 1.7 (1.0-1.8); ALBUMIN 4.1 gm/dL (4.2-5.5); ALKALINE PHOSPHATASE 74 U/L (34-104); ANION GAP 10.8 (7.0-16.0); BILIRUBIN,TOTAL 0.5 mg/dL (0.3-1.0); BUN - UREA NITROGEN 19 mg/dL (7-25); CALCIUM SERUM 9.4 mg/dL (8.6-10.3); CARBON DIOXIDE 25.2 mEq/L (21.0-31.0); CHLORIDE 105 mEq/L (98-107); GFR AFRICAN-AMERICAN > 60.0 ml/min (>90); GFR NON AFRICAN-AMERICAN > 60.0 ml/min; GLUCOSE 97 mg/dL (70-105); SGOT 27 U/L (13-39); SGPT/ALT 27 U/L (7-52); SODIUM SERUM 137 mEq/L (136-145); TOTAL PROTEIN,SERUM 6.5 gm/dL (6.0-8.3)
[2017-10-04 14:22] LABS: URINE MICROSCOPIC INDICATED? YES; URINE SOURCE CATH
[2017-10-04 14:24] LABS: URINE BILIRUBIN NEGATIVE (NEGATIVE); URINE BLOOD MODERATE (NEGATIVE); URINE GLUCOSE (UA) NEGATIVE (NEGATIVE); URINE KETONE TRACE mg/dL (NEGATIVE); URINE LEUKOCYTE ESTERASE NEGATIVE (NEGATIVE); URINE NITRATE NEGATIVE (NEGATIVE); URINE PH 6.5 (4.6 - 8.0); URINE PROTEIN NEGATIVE (NEGATIVE); URINE UROBILINOGEN 0.2 E.U./dL (0.2 - 1.0)
[2017-10-04 14:32] LABS: URINE CLARITY SLIGHTLY HAZY (CLEAR); URINE COLOR YELLOW
[2017-10-04 14:33] LABS: URINE BACTERIA OCCASIONAL /hpf (NONE SEEN); URINE EPITHELIAL CELLS OCCASIONAL /lpf (FEW); URINE WBC 0-2 /hpf (0-5)
[2017-10-04] MEDS ORDERED: Sodium Chloride 0.9% 1,000 ML IV ONE (15:12)
[2017-10-04] MEDS ORDERED: Fleet Enema 135 mL RC ONE (15:12)
--- NOTE | 2017-10-05 07:28 | Diagnostic Imaging Report ---
Portable chest x-ray Time: 1418 hours HISTORY: Cough Allowing for portable technique the heart size is normal. No focal pulmonary parenchymal processes. No hilar or mediastinal abnormalities. Impression: No acute abnormalities.
--- NOTE | 2017-10-05 08:09 | Diagnostic Imaging Report ---
Exam: CT examination abdomen pelvis HISTORY: Abdominal pain Total DLP equals 479 CTDI equals 8.7 Findings: Multiple contiguous thin section of the abdomen pelvis obtained from lower thorax to pubic symphysis without administration intravenous or oral contrast material. The study compared to prior exam 05/02/2017. The study demonstrates normal aeration of lung parenchyma the bases The gallbladder is intact. The adrenal glands are normal. The kidneys demonstrate no evidence of obstructive uropathy nephrolithiasis. The pancreas nonvisualized. No free fluid is noted. The urinary bladder distended with a Daley catheter and air collections most likely is echogenic region views. Bony structures demonstrate no evidence for lytic or blastic changes. IMPRESSION: Severe fecal impaction.
== END 2017-10-04 17:05 | disposition home or self-care (01) ==
LOC: ER 12:28
DX: R10.9 Unspecified abdominal pain (principal)
CPT/HCPCS: 36415-UA; 71045-TC; 80053-TC; 81001-TC; 84443-TC; 85025-TC; 87086-90; 93005; J7030

== ENCOUNTER 2018-09-21 20:57 | Inpatient (IN) | payer MEDICARE, MEDICAID ==
--- NOTE | 2018-09-21 21:24 | ED Physician Chart ---
ED Chief Complaint/HPI - Patient Information Date Seen:: 09/21/18 Time Seen:: 21:24 Chief Complaint:: Constipation History of Present Illness:: 57 yo male with history of hypothyroidism, schizophrenia and BPH, was brought from a [facility] facility to ER for evaluation of chronic constipation and dark colored urine for 2 days. Patient had slightly distended abdomen. Allergies:: Allergies Allergy/AdvReac Type Severity Reaction Status Date / Time No Known Allergies Allergy Verified 10/04/17 12:44 Vitals:: Vital Signs - 8 hr 09/21/18 21:00 Temp 97.5 F HR 81 RR 18 BP 113/65 O2 Sat % 97 ED Review of Systems - Review of Systems General/Constitutional: No fever, Weakness Skin: No rash Head: No headache Eyes: No pain ENT: No nasal drainage Neck: No neck pain Cardio Vascular: No chest pain Pulmonary: No SOB GI: No nausea, No vomiting, Constipation Musculoskeletal: No bone or joint pain Psychiatric: Prior psych history Neurological: No focal symptoms ED Past Medical History - Past Medical History Past Medical History: Thyroid disorder (Hypothyroidism), Other (BPH) Social History: Non Smoker, No Alcohol, No Drug Use Psychiatricy History: Schizophrenia Family Medical History - Family Member Mother History Unknown: Yes Ethnicity: Unknown Living Status: Unknown ED Physical Exam - Physical Examination General/Constitutional: Awake, Non-toxic appearing Head: Atraumatic Eyes: PERRL, EOMI Skin: No skin lesions Neck: No nuchal rigidity Respiratory: No Wheeze/Rhonchi/Rales Cardio Vascular: RRR, No murmur, gallop, rubs, NL S1 S2 Other GI comments:: distended, decreased bowel sounds Extremities: No edema ED Labs/Radiology/EKG Results - Lab Results Results: Laboratory Last Values WBC 6.6 Th/cmm (4.8-10.8) 09/22/18 06:16 RBC 4.61 Mil/cmm (4.30-5.70) 09/22/18 06:16 Hgb 14.4 gm/dL (12-16) 09/22/18 06:16 Hct 42.5 % (41.0-60) 09/22/18 06:16 MCV 92.2 fl (80-99) 09/22/18 06:16 MCH 31.2 pg (26.0-30.0) H 09/22/18 06:16 MCHC Differential 33.8 pg (28.0-36.0) 09/22/18 06:16 RDW 12.8 % (11.5-20.0) 09/22/18 06:16 Plt Count 199 Th/cmm (150-400) 09/22/18 06:16 MPV 8.4 fl 09/22/18 06:16 Neutrophils % 53.0 % (40.0-80.0) 09/22/18 06:16 Lymphocytes % 38.0 % (20.0-50.0) 09/22/18 06:16 Monocytes % 8.1 % (2.0-10.0) 09/22/18 06:16 Eosinophils % 0.7 % (0.0-5.0) 09/22/18 06:16 Basophils % 0.2 % (0.0-2.0) 09/22/18 06:16 Sodium 141 mEq/L (136-145) 09/22/18 06:16 Potassium 4.2 mEq/L (3.5-5.1) 09/22/18 06:16 Chloride 110 mEq/L (98-107) H 09/22/18 06:16 Carbon Dioxide 23.7 mEq/L (21.0-31.0) 09/22/18 06:16 Anion Gap 11.5 (7.0-16.0) 09/22/18 06:16 BUN 19 mg/dL (7-25) 09/22/18 06:16 Creatinine 0.9 mg/dL (0.7-1.3) 09/22/18 06:16 Est GFR ( Amer) > 60.0 ml/min (>90) 09/22/18 06:16 Est GFR (Non-Af Amer) > 60.0 ml/min 09/22/18 06:16 BUN/Creatinine Ratio 21.1 09/22/18 06:16 Glucose 103 mg/dL (70-105) 09/22/18 06:16 POC Glucose 122 MG/DL (70 - 105) H 09/22/18 00:48 Calcium 9.2 mg/dL (8.6-10.3) 09/22/18 06:16 Total Bilirubin 0.5 mg/dL (0.3-1.0) 09/22/18 06:16 AST 19 U/L (13-39) 09/22/18 06:16 ALT 16 U/L (7-52) 09/22/18 06:16 Alkaline Phosphatase 67 U/L (34-104) 09/22/18 06:16 Troponin I < 0.01 ng/mL (0.01-0.05) L 09/21/18 21:35 B-Natriuretic Peptide < 5.0 pg/mL (5.0-100.0) L 09/21/18 21:35 Total Protein 5.9 gm/dL (6.0-8.3) L 09/22/18 06:16 Albumin 3.8 gm/dL (4.2-5.5) L 09/22/18 06:16 Globulin 2.1 gm/dL 09/22/18 06:16 Albumin/Globulin Ratio 1.8 (1.0-1.8) 09/22/18 06:16 Triglycerides 61 mg/dL (<150) 09/22/18 06:16 Cholesterol 117 mg/dL (<200) 09/22/18 06:16 LDL Cholesterol Direct 68 mg/dL (75-193) L 09/22/18 06:16 HDL Cholesterol 42 mg/dL (23-92) 09/22/18 06:16 TSH 13.42 uIU/ml (0.34-5.60) H 09/22/18 06:16 Urine Source RANDOM 09/21/18 23:25 Urine Color YELLOW 09/21/18 23:25 Urine Clarity CLEAR (CLEAR) 09/21/18 23:25 Urine pH 8.0 (4.6 - 8.0) 09/21/18 23:25 Ur Specific [place] 1.015 (1.005-1.030) 09/21/18 23:25 Urine Protein NEGATIVE mg/dL (NEGATIVE) 09/21/18 23:25 Urine Glucose (UA) NEGATIVE mg/dL (NEGATIVE) 09/21/18 23:25 Urine Ketones NEGATIVE mg/dL (NEGATIVE) 09/21/18 23:25 Urine Blood NEGATIVE (NEGATIVE) 09/21/18 23:25 Urine Nitrate NEGATIVE (NEGATIVE) 09/21/18 23:25 Urine Bilirubin NEGATIVE (NEGATIVE) 09/21/18 23:25 Urine Urobilinogen 0.2 E.U./dL (0.2 - 1.0) 09/21/18 23:25 Ur Leukocyte Esterase NEGATIVE (NEGATIVE) 09/21/18 23:25 - Radiology Results Results: CXR: no focal consolidation KUB: massive amount of stool in the entire colon, severe constipation ED Assessment - Assessment General Assessment: Severe constipation Hypothyroidism BPH Schizophrenia Assessment/Comments:: CBC, CMP, UA CXR KUB Admit patient for further management ED Septic Shock - . Is Septic Shock (SBP<90, OR Lactate>4 mmol\L) present?: No - <6hrs of presentation: Vital Signs: Vital Signs - 8 hr 09/21/18 21:00 Temp 97.5 F HR 81 RR 18 BP 113/65 O2 Sat % 97 ED Reassessment (Disposition) - Reassessment Reassessment Condition:: Unchanged - Patient Disposition Discharge/Transfer:: Acute Care w/in this hosp Admitting Medical Physician:: Zuly Wang
[2018-09-21 21:47] LABS: % MONOCYTES 7.9 % (2.0-10.0); EOSINOPHILE ABSOLUTE 0.1 Th/cmm (0.1-0.4); MONOCYTE ABSOLUTE 0.6 Th/cmm (0.3-1.0); RED BLOOD COUNT 4.62 Mil/cmm (4.30-5.70)
[2018-09-21 21:49] LABS: % BASOPHILS 0.3 % (0.0-2.0); % LYMPHOCYTES 43.8 % (20.0-50.0); HEMATOCRIT 42.6 % (41.0-60); HEMOGLOBIN 14.3 gm/dL (12-16); LYMPHOCYTE ABSOLUTE 3.1 Th/cmm (1.5-3.0); MEAN CELL VOLUME 92.1 fl (80-99); MEAN CORPUSCULAR HGB CONC 33.6 pg (28.0-36.0); MEAN PLATELET VOLUME 8.2 fl; NEUTROPHILE ABSOLUTE 3.3 Th/cmm (1.8-8.0); PLATELET COUNT 199 Th/cmm (150-400); RED CELL DISTRIBUTION WIDTH 12.8 % (11.5-20.0); WHITE BLOOD COUNT 7.1 Th/cmm (4.8-10.8)
[2018-09-21 22:07] LABS: ALB/GLOB RATIO 1.9 (1.0-1.8); ALBUMIN 3.9 gm/dL (4.2-5.5); ALKALINE PHOSPHATASE 72 U/L (34-104); ANION GAP 11.1 (7.0-16.0); BILIRUBIN,TOTAL 0.4 mg/dL (0.3-1.0); BUN - UREA NITROGEN 22 mg/dL (7-25); CALCIUM SERUM 9.4 mg/dL (8.6-10.3); CARBON DIOXIDE 25.1 mEq/L (21.0-31.0); CHLORIDE 110 mEq/L (98-107); CREATININE - SERUM 0.8 mg/dL (0.7-1.3); GFR AFRICAN-AMERICAN > 60.0 ml/min (>90); GFR NON AFRICAN-AMERICAN > 60.0 ml/min; GLUCOSE 79 mg/dL (70-105); POTASSIUM SERUM 4.2 mEq/L (3.5-5.1); SGOT 18 U/L (13-39); SGPT/ALT 16 U/L (7-52); SODIUM SERUM 142 mEq/L (136-145)
[2018-09-21 23:33] LABS: URINE SOURCE RANDOM
[2018-09-21 23:55] LABS: URINE BILIRUBIN NEGATIVE (NEGATIVE); URINE BLOOD NEGATIVE (NEGATIVE); URINE CLARITY CLEAR (CLEAR); URINE COLOR YELLOW; URINE GLUCOSE (UA) NEGATIVE (NEGATIVE); URINE KETONE NEGATIVE (NEGATIVE); URINE NITRATE NEGATIVE (NEGATIVE); URINE PROTEIN NEGATIVE (NEGATIVE); URINE UROBILINOGEN 0.2 E.U./dL (0.2 - 1.0)
[2018-09-21 23:56] LABS: URINE LEUKOCYTE ESTERASE NEGATIVE (NEGATIVE); URINE MICROSCOPIC INDICATED? NO
[2018-09-22] MEDS: D5-0.45NS 1,000 ML IV SCH ×2 (00:51→13:14)
[2018-09-22 01:11] VITALS: BP 121/88
[2018-09-22 06:44] LABS: % BASOPHILS 0.2 % (0.0-2.0); % EOSINOPHILS 0.7 % (0.0-5.0); % MONOCYTES 8.1 % (2.0-10.0); HEMATOCRIT 42.5 % (41.0-60); HEMOGLOBIN 14.4 gm/dL (12-16); LYMPHOCYTE ABSOLUTE 2.5 Th/cmm (1.5-3.0); MEAN CELL VOLUME 92.2 fl (80-99); MEAN CORPUSCULAR HEMOGLOBIN 31.2 pg (26.0-30.0); MEAN CORPUSCULAR HGB CONC 33.8 pg (28.0-36.0); MEAN PLATELET VOLUME 8.4 fl; MONOCYTE ABSOLUTE 0.5 Th/cmm (0.3-1.0); NEUTROPHILE ABSOLUTE 3.6 Th/cmm (1.8-8.0); PLATELET COUNT 199 Th/cmm (150-400); RED BLOOD COUNT 4.61 Mil/cmm (4.30-5.70); RED CELL DISTRIBUTION WIDTH 12.8 % (11.5-20.0); WHITE BLOOD COUNT 6.6 Th/cmm (4.8-10.8)
[2018-09-22 07:12] LABS: ALB/GLOB RATIO 1.8 (1.0-1.8); ALBUMIN 3.8 gm/dL (4.2-5.5); ALKALINE PHOSPHATASE 67 U/L (34-104); ANION GAP 11.5 (7.0-16.0); BILIRUBIN,TOTAL 0.5 mg/dL (0.3-1.0); BUN - UREA NITROGEN 19 mg/dL (7-25); CALCIUM SERUM 9.2 mg/dL (8.6-10.3); CARBON DIOXIDE 23.7 mEq/L (21.0-31.0); CHLORIDE 110 mEq/L (98-107); CHOLESTEROL 117 mg/dL (<200); CREATININE - SERUM 0.9 mg/dL (0.7-1.3); GFR AFRICAN-AMERICAN > 60.0 ml/min (>90); GFR NON AFRICAN-AMERICAN > 60.0 ml/min; GLUCOSE 103 mg/dL (70-105); HDL -HIGH DENSITY LIPOPROTEIN 42 mg/dL (23-92); POTASSIUM SERUM 4.2 mEq/L (3.5-5.1); SGOT 19 U/L (13-39); SGPT/ALT 16 U/L (7-52); SODIUM SERUM 141 mEq/L (136-145); TOTAL PROTEIN,SERUM 5.9 gm/dL (6.0-8.3); TRIGLYCERIDES 61 mg/dL (<150)
--- NOTE | 2018-09-22 08:37 | Diagnostic Imaging Report ---
CHEST X-RAY: AP view INDICATION: Shortness of breath COMPARISON: 10/04/2017 FINDINGS: Increased left basal lung markings are noted. Low lung volumes are noted. Chronic lung changes are noted. Heart size is normal. Gas distended bowel loops of the upper abdomen are noted. There is mild spinal scoliosis. IMPRESSION: Low lung also increased left basal lung markings suggestive of atelectatic changes. No focal consolidation is identified.
--- NOTE | 2018-09-22 08:59 | Diagnostic Imaging Report ---
KUB single view HISTORY: Abdominal pain. COMPARISON: CT abdomen and pelvis on 10/04/2017 FINDINGS: There is massive amount of stool throughout the colon gas-filled loops of bowel. Distended air-filled stomach is noted. Osseous structures are intact. IMPRESSION: Massive amount of stool throughout the entire colon with gas-filled loops of bowel. Findings are most accounts payable representative of severe constipation. Clinical correlation and follow up recommended Gas distended stomach also noted.
[2018-09-22] MEDS ORDERED: Fleet Enema 135 mL RC ONE (12:35)
--- NOTE | 2018-09-22 20:02 | Consultation ---
DATE OF CONSULTATION: 09/22/2018 INPATIENT GASTROINTESTINAL CONSULTATION REFERRING PHYSICIAN: Dr. Wang. REASON FOR CONSULTATION: Constipation, fecal impaction. HISTORY OF PRESENT ILLNESS: This is a 57-year-old male brought in from an outside facility. The patient is a poor historian, nonverbal. Apparently, had abdominal distention. X-ray in the ER suggested severe constipation, fecal impaction. PAST MEDICAL HISTORY: Hypothyroidism, schizophrenia, BPH. PAST SURGICAL HISTORY: None to abdomen recently. FAMILY HISTORY: Noncontributory. SOCIAL HISTORY: Resident of [facility] emergency [facility] facility. ALLERGIES: None. CURRENT MEDICATIONS: IV fluids. REVIEW OF SYSTEMS: Unobtainable. PHYSICAL EXAMINATION: VITAL SIGNS: Temperature 97.3, breathing 18, pulse of 68, blood pressure 120/76, satting 97%. GENERAL: In no apparent distress. EYES: Anicteric. Normal conjunctivae. HEENT: Normocephalic, atraumatic. Moist mucous membranes. NECK: Soft, supple. CHEST: Clear. No effort. CARDIOVASCULAR: Regular rate and rhythm. ABDOMEN: Soft, nontender, distended. SKIN: Warm, dry. EXTREMITIES: Reveal no cyanosis. PSYCHOLOGIC: Alert, oriented x 3. LABORATORY DATA: Show white count 6.6, hemoglobin 14.4, platelets 199. LFTs were within normal limits. KUB showed fecal impaction, constipation throughout the entire colon. IMPRESSION: A 57-year-old male with constipation, fecal impaction, likely causing abdominal distention. The patient will likely benefit from having laxatives. He should also have a swallow evaluation as well because we cannot determine if he can swallow. PLAN: 1. Full evaluation if he can swallow, then consider GoLYTELY. 2. Provide the patient with Fleet enema and Dulcolax per rectum in the meantime. Thank you for allowing me to participate. Please call me if any questions. JOB# [id number]
[2018-09-22] MEDS ORDERED: Non-Formulary Item 1 EA (Oxybenzone/Padimate O [Sunscreen Spf8 Lotion] 120 ML) TP PRN (20:19)
[2018-09-22] MEDS ORDERED: Magnesium Hydroxide (MOM) 30 mL UDC PO PRN (20:19)
[2018-09-22] MEDS ORDERED: CALCIUM CITRATE 200 MG PO PRN (20:19)
[2018-09-22] MEDS ORDERED: LORAZEPAM 1 MG PO PRN (20:19)
[2018-09-22] MEDS ORDERED: Dicyclomine 10 mg Cap PO PRN (20:19)
--- NOTE | 2018-09-22 21:43 | History & Physical ---
ADMIT DATE: 09/22/2018 HISTORY OF PRESENT ILLNESS: The patient is very well-known patient. He is coming from [facility] where I visit him periodically. The patient is known to have a history of schizophrenia, history of benign enlargement of the prostate, history of hypothyroidism and essentially is coming with severe constipation, dark colored urine as well as slightly distended abdomen, obstipation, and fecal impaction. The patient was admitted. PAST MEDICAL HISTORY: Included thyroid disorder, hypothyroidism, BPH. SOCIAL HISTORY: Nonsmoker, nondrinker. The patient has underlying psych problem, history of schizophrenia. The patient lives in a [facility]. PHYSICAL EXAMINATION: GENERAL: Awake, alert, nontoxic-appearing, atraumatic. HEAD: Normal. ENT: Normal. NECK: Supple. LUNGS: Clear. CARDIOVASCULAR SYSTEM: S1, S2 heard. ABDOMEN: Soft. Bowel sounds are heard. LABORATORY DATA: White count was 6.6. Electrolytes: BUN was slightly high at 19, creatinine is 0.9, and the patient cholesterol is okay and TSH was 13.42 indicating hypothyroidism. Chest x-ray showed no focal consolidation. A KUB showed massive amount of stool in the entire colon with fecal impaction and severe constipation. DIAGNOSES: Severe constipation, abdominal pain, hypothyroidism, benign prostatic hypertrophy, and schizophrenia was made. PLAN: The patient is being admitted. I will go ahead and give him enema and also we will have Dr. Reza see the patient and I will continue all his medication. I will follow the patient. JOB# [id number]
[2018-09-23] MEDS: Levothyroxine 0.1 Mg Tab PO SCH (06:36)
[2018-09-23] MEDS: D5-0.45NS 1,000 ML IV SCH (06:36)
[2018-09-23] MEDS ORDERED: Non-Formulary Item 1 EA (Linaclotide [Linzess] 145 MCG) PO SCH (09:00)
[2018-09-23] MEDS ORDERED: DIPHENHYDRAMINE HCL 50 MG PO SCH (09:00)
[2018-09-23] MEDS ORDERED: RISPERIDONE 2 MG PO SCH (09:00)
[2018-09-23 09:01] LABS: % BASOPHILS 0.4 % (0.0-2.0); % EOSINOPHILS 1.1 % (0.0-5.0); % LYMPHOCYTES 23.4 % (20.0-50.0); % MONOCYTES 8.8 % (2.0-10.0); % NEUTROPHILS 66.3 % (40.0-80.0); EOSINOPHILE ABSOLUTE 0.1 Th/cmm (0.1-0.4); HEMOGLOBIN 15.6 gm/dL (12-16); LYMPHOCYTE ABSOLUTE 1.8 Th/cmm (1.5-3.0); MEAN CELL VOLUME 92.1 fl (80-99); MEAN CORPUSCULAR HEMOGLOBIN 30.5 pg (26.0-30.0); MEAN CORPUSCULAR HGB CONC 33.1 pg (28.0-36.0); MEAN PLATELET VOLUME 8.4 fl; MONOCYTE ABSOLUTE 0.7 Th/cmm (0.3-1.0); NEUTROPHILE ABSOLUTE 5.1 Th/cmm (1.8-8.0); PLATELET COUNT 210 Th/cmm (150-400); RED CELL DISTRIBUTION WIDTH 12.8 % (11.5-20.0); WHITE BLOOD COUNT 7.7 Th/cmm (4.8-10.8)
[2018-09-23 09:17] LABS: ANION GAP 14.9 (7.0-16.0); BUN - UREA NITROGEN 15 mg/dL (7-25); CALCIUM SERUM 9.4 mg/dL (8.6-10.3); CARBON DIOXIDE 17.9 mEq/L (21.0-31.0); CHLORIDE 111 mEq/L (98-107); CREATININE - SERUM 0.9 mg/dL (0.7-1.3); GFR AFRICAN-AMERICAN > 60.0 ml/min (>90); GFR NON AFRICAN-AMERICAN > 60.0 ml/min; GLUCOSE 161 mg/dL (70-105); POTASSIUM SERUM 3.8 mEq/L (3.5-5.1); SODIUM SERUM 140 mEq/L (136-145)
--- NOTE | 2018-09-23 13:07 | GI Progress Note ---
Subjective - Review of Systems Subjective: HAD SEVERAL BM Objective - Results Result Diagrams: 09/23/18 08:35 09/23/18 08:35 Recent Labs: Laboratory Last Values WBC 7.7 Th/cmm (4.8-10.8) 09/23/18 08:35 RBC 5.10 Mil/cmm (4.30-5.70) 09/23/18 08:35 Hgb 15.6 gm/dL (12-16) 09/23/18 08:35 Hct 47.0 % (41.0-60) 09/23/18 08:35 MCV 92.1 fl (80-99) 09/23/18 08:35 MCH 30.5 pg (26.0-30.0) H 09/23/18 08:35 MCHC Differential 33.1 pg (28.0-36.0) 09/23/18 08:35 RDW 12.8 % (11.5-20.0) 09/23/18 08:35 Plt Count 210 Th/cmm (150-400) 09/23/18 08:35 MPV 8.4 fl 09/23/18 08:35 Neutrophils % 66.3 % (40.0-80.0) 09/23/18 08:35 Lymphocytes % 23.4 % (20.0-50.0) 09/23/18 08:35 Monocytes % 8.8 % (2.0-10.0) 09/23/18 08:35 Eosinophils % 1.1 % (0.0-5.0) 09/23/18 08:35 Basophils % 0.4 % (0.0-2.0) 09/23/18 08:35 Sodium 140 mEq/L (136-145) 09/23/18 08:35 Potassium 3.8 mEq/L (3.5-5.1) 09/23/18 08:35 Chloride 111 mEq/L (98-107) H 09/23/18 08:35 Carbon Dioxide 17.9 mEq/L (21.0-31.0) L 09/23/18 08:35 Anion Gap 14.9 (7.0-16.0) 09/23/18 08:35 BUN 15 mg/dL (7-25) 09/23/18 08:35 Creatinine 0.9 mg/dL (0.7-1.3) 09/23/18 08:35 Est GFR ( Amer) > 60.0 ml/min (>90) 09/23/18 08:35 Est GFR (Non-Af Amer) > 60.0 ml/min 09/23/18 08:35 BUN/Creatinine Ratio 16.7 09/23/18 08:35 Glucose 161 mg/dL (70-105) H 09/23/18 08:35 POC Glucose 122 MG/DL (70 - 105) H 09/22/18 00:48 Calcium 9.4 mg/dL (8.6-10.3) 09/23/18 08:35 Total Bilirubin 0.5 mg/dL (0.3-1.0) 09/22/18 06:16 AST 19 U/L (13-39) 09/22/18 06:16 ALT 16 U/L (7-52) 09/22/18 06:16 Alkaline Phosphatase 67 U/L (34-104) 09/22/18 06:16 Troponin I < 0.01 ng/mL (0.01-0.05) L 09/21/18 21:35 B-Natriuretic Peptide < 5.0 pg/mL (5.0-100.0) L 09/21/18 21:35 Total Protein 5.9 gm/dL (6.0-8.3) L 09/22/18 06:16 Albumin 3.8 gm/dL (4.2-5.5) L 09/22/18 06:16 Globulin 2.1 gm/dL 09/22/18 06:16 Albumin/Globulin Ratio 1.8 (1.0-1.8) 09/22/18 06:16 Triglycerides 61 mg/dL (<150) 09/22/18 06:16 Cholesterol 117 mg/dL (<200) 09/22/18 06:16 LDL Cholesterol Direct 68 mg/dL (75-193) L 09/22/18 06:16 HDL Cholesterol 42 mg/dL (23-92) 09/22/18 06:16 TSH 13.42 uIU/ml (0.34-5.60) H 09/22/18 06:16 Urine Source RANDOM 09/21/18 23:25 Urine Color YELLOW 09/21/18 23:25 Urine Clarity CLEAR (CLEAR) 09/21/18 23:25 Urine pH 8.0 (4.6 - 8.0) 09/21/18 23:25 Ur Specific [place] 1.015 (1.005-1.030) 09/21/18 23:25 Urine Protein NEGATIVE mg/dL (NEGATIVE) 09/21/18 23:25 Urine Glucose (UA) NEGATIVE mg/dL (NEGATIVE) 09/21/18 23:25 Urine Ketones NEGATIVE mg/dL (NEGATIVE) 09/21/18 23:25 Urine Blood NEGATIVE (NEGATIVE) 09/21/18 23:25 Urine Nitrate NEGATIVE (NEGATIVE) 09/21/18 23:25 Urine Bilirubin NEGATIVE (NEGATIVE) 09/21/18 23:25 Urine Urobilinogen 0.2 E.U./dL (0.2 - 1.0) 09/21/18 23:25 Ur Leukocyte Esterase NEGATIVE (NEGATIVE) 09/21/18 23:25 - Physical Exam Vitals and I&O: Vital Signs Temp 98 F 09/23/18 12:05 Pulse 85 09/23/18 12:05 Resp 18 09/23/18 12:05 BP 102/68 09/23/18 12:05 Pulse Ox 98 09/23/18 12:05 Intake & Output 09/22/18 09/23/18 09/23/18 18:59 06:59 18:59 Intake Total 491.25 340 Balance 491.25 340 Weight (lbs) 65.045 kg Intake: Intake, IV Amount 491.25 D5-0.45NS 1,000 ml @ 75 491.25 mls/hr IV .[id number] [facility] Rx #:[id number] Oral 340 Other: # Voids 2 # Bowel Movements 2 Stool Characteristics Soft Liquid Brown Weight Source Bedscale Active Medications: Current Medications Acetaminophen (Tylenol) 650 mg PO Q6HR PRN PRN Reason: Fever > 101 Stop: 11/21/18 20:18 Bisacodyl (Dulcolax 10 Mg Supp) 10 mg RC Q72H PRN PRN Reason: Constipation Stop: 11/21/18 20:18 Calcium Carbonate (Os-Zay) 500 mg PO BID [facility] Stop: 11/22/18 08:59 Last Admin: 09/23/18 09:16 Dose: 500 mg Calcium Carbonate (Os-Zay) 500 mg PO DAILY [facility] Stop: 11/23/18 08:59 Dicyclomine HCl (Bentyl) 10 mg PO TID PRN PRN Reason: Irritable Bowel Stop: 11/21/18 20:18 Diphenhydramine HCl (Benadryl) 50 mg PO HS [facility] Stop: 11/21/18 20:59 Last Admin: 09/22/18 22:27 Dose: 50 mg Diphenhydramine HCl (Benadryl) 50 mg PO DAILY [facility] Stop: 11/23/18 08:59 Divalproex Sodium (Depakote Dr) 500 mg PO BID [facility]; Protocol Stop: 11/22/18 08:59 Last Admin: 09/23/18 09:17 Dose: 500 mg Docusate Sodium (Colace) 100 mg PO BID [facility] Stop: 11/22/18 08:59 Last Admin: 09/23/18 09:17 Dose: 100 mg Dextrose/Sodium Chloride (D5-0.45ns) 1,000 mls @ 75 mls/hr IV .[id number] [facility] Stop: 11/21/18 00:14 Last Admin: 09/23/18 06:36 Dose: Not Given Levothyroxine Sodium (Synthroid) 0.1 mg PO QDAC [facility] Stop: 11/22/18 07:29 Last Admin: 09/23/18 06:36 Dose: 0.1 mg Loratadine (Claritin) 10 mg PO DAILY [facility] Stop: 11/22/18 08:59 Last Admin: 09/23/18 09:16 Dose: 10 mg Lorazepam (Ativan) 1 mg PO TID [facility]; Protocol Stop: 11/21/18 20:59 Last Admin: 09/23/18 09:17 Dose: 1 mg Lorazepam (Ativan) 1 mg PO Q12H PRN PRN Reason: ANXIETY Stop: 11/22/18 09:28 Magnesium Hydroxide (Milk Of Magnesia) 30 ml PO Q4H PRN PRN Reason: Constipation Stop: 11/21/18 20:18 Miscellaneous (Linaclotide [Linzess]) 145 mcg PO DAILY [facility] Stop: 11/22/18 08:59 Miscellaneous (Lubiprostone [Amitiza]) 24 mcg PO BID [facility] Stop: 11/22/18 08:59 Olanzapine (Zyprexa) 10 mg PO QAM [facility]; Protocol Stop: 11/22/18 08:59 Last Admin: 09/23/18 09:16 Dose: 10 mg Olanzapine (Zyprexa) 15 mg PO HS [facility]; Protocol Stop: 11/21/18 20:59 Last Admin: 09/22/18 22:28 Dose: 15 mg Promethazine HCl (Phenergan) 12.5 mg PO Q6HR PRN PRN Reason: Cough Stop: 11/21/18 20:18 Quetiapine Fumarate (Seroquel) 400 mg PO BID [facility]; Protocol Stop: 11/22/18 08:59 Last Admin: 09/23/18 09:16 Dose: 400 mg Risperidone (Risperdal) 2 mg PO DAILY [facility] Stop: 11/23/18 08:59 Simethicone (Mylicon) 80 mg PO TID [facility] Stop: 11/21/18 20:59 Last Admin: 09/23/18 09:17 Dose: 80 mg Tamsulosin HCl (Flomax) 0.4 mg PO HS [facility] Stop: 11/22/18 20:59 Vitamin D (Vitamin D) 400 iu PO DAILY [facility] Stop: 11/22/18 08:59 Last Admin: 09/23/18 09:16 Dose: 400 iu Assessment/Plan - Assessment Assessment: 57 YO MALE WITH CONSTIPATION HAD SEVERAL BM 1.CHECK KUB 2.PROVIDE PT WITH LAXATIVES
--- NOTE | 2018-09-23 13:28 | Diagnostic Imaging Report ---
KUB single view HISTORY: Constipation. COMPARISON: KUB on 09/21/2018 FINDINGS: There is massive amount of stool throughout the colon with overall decrease in degree of stool burden since prior exam. Generalized gaseous filled loops of bowel are noted. IMPRESSION: Massive amount of stool throughout the colon with overall mild decrease in stool burden since prior exam.
--- NOTE | 2018-09-23 16:05 | Internal Medicine Prog Note ---
Internal Medicine Subjective - Subjective Patient seen and examined:: with staff, chart reviewed Patient is:: awake, verbal, talking, other Patient Complaints of:: constipation, bloated (abd pain ), other Per staff patient has:: no adverse event Internal Medicine Objective - Results Result Diagrams: 09/23/18 08:35 09/23/18 08:35 Recent Labs: Laboratory Last Values WBC 7.7 Th/cmm (4.8-10.8) 09/23/18 08:35 RBC 5.10 Mil/cmm (4.30-5.70) 09/23/18 08:35 Hgb 15.6 gm/dL (12-16) 09/23/18 08:35 Hct 47.0 % (41.0-60) 09/23/18 08:35 MCV 92.1 fl (80-99) 09/23/18 08:35 MCH 30.5 pg (26.0-30.0) H 09/23/18 08:35 MCHC Differential 33.1 pg (28.0-36.0) 09/23/18 08:35 RDW 12.8 % (11.5-20.0) 09/23/18 08:35 Plt Count 210 Th/cmm (150-400) 09/23/18 08:35 MPV 8.4 fl 09/23/18 08:35 Neutrophils % 66.3 % (40.0-80.0) 09/23/18 08:35 Lymphocytes % 23.4 % (20.0-50.0) 09/23/18 08:35 Monocytes % 8.8 % (2.0-10.0) 09/23/18 08:35 Eosinophils % 1.1 % (0.0-5.0) 09/23/18 08:35 Basophils % 0.4 % (0.0-2.0) 09/23/18 08:35 Sodium 140 mEq/L (136-145) 09/23/18 08:35 Potassium 3.8 mEq/L (3.5-5.1) 09/23/18 08:35 Chloride 111 mEq/L (98-107) H 09/23/18 08:35 Carbon Dioxide 17.9 mEq/L (21.0-31.0) L 09/23/18 08:35 Anion Gap 14.9 (7.0-16.0) 09/23/18 08:35 BUN 15 mg/dL (7-25) 09/23/18 08:35 Creatinine 0.9 mg/dL (0.7-1.3) 09/23/18 08:35 Est GFR ( Amer) > 60.0 ml/min (>90) 09/23/18 08:35 Est GFR (Non-Af Amer) > 60.0 ml/min 09/23/18 08:35 BUN/Creatinine Ratio 16.7 09/23/18 08:35 Glucose 161 mg/dL (70-105) H 09/23/18 08:35 POC Glucose 122 MG/DL (70 - 105) H 09/22/18 00:48 Calcium 9.4 mg/dL (8.6-10.3) 09/23/18 08:35 Total Bilirubin 0.5 mg/dL (0.3-1.0) 09/22/18 06:16 AST 19 U/L (13-39) 09/22/18 06:16 ALT 16 U/L (7-52) 09/22/18 06:16 Alkaline Phosphatase 67 U/L (34-104) 09/22/18 06:16 Troponin I < 0.01 ng/mL (0.01-0.05) L 09/21/18 21:35 B-Natriuretic Peptide < 5.0 pg/mL (5.0-100.0) L 09/21/18 21:35 Total Protein 5.9 gm/dL (6.0-8.3) L 09/22/18 06:16 Albumin 3.8 gm/dL (4.2-5.5) L 09/22/18 06:16 Globulin 2.1 gm/dL 09/22/18 06:16 Albumin/Globulin Ratio 1.8 (1.0-1.8) 09/22/18 06:16 Triglycerides 61 mg/dL (<150) 09/22/18 06:16 Cholesterol 117 mg/dL (<200) 09/22/18 06:16 LDL Cholesterol Direct 68 mg/dL (75-193) L 09/22/18 06:16 HDL Cholesterol 42 mg/dL (23-92) 09/22/18 06:16 TSH 13.42 uIU/ml (0.34-5.60) H 09/22/18 06:16 Urine Source RANDOM 09/21/18 23:25 Urine Color YELLOW 09/21/18 23:25 Urine Clarity CLEAR (CLEAR) 09/21/18 23:25 Urine pH 8.0 (4.6 - 8.0) 09/21/18 23:25 Ur Specific [place] 1.015 (1.005-1.030) 09/21/18 23:25 Urine Protein NEGATIVE mg/dL (NEGATIVE) 09/21/18 23:25 Urine Glucose (UA) NEGATIVE mg/dL (NEGATIVE) 09/21/18 23:25 Urine Ketones NEGATIVE mg/dL (NEGATIVE) 09/21/18 23:25 Urine Blood NEGATIVE (NEGATIVE) 09/21/18 23:25 Urine Nitrate NEGATIVE (NEGATIVE) 09/21/18 23:25 Urine Bilirubin NEGATIVE (NEGATIVE) 09/21/18 23:25 Urine Urobilinogen 0.2 E.U./dL (0.2 - 1.0) 09/21/18 23:25 Ur Leukocyte Esterase NEGATIVE (NEGATIVE) 09/21/18 23:25 - Physical Exam Vitals and I&O: Vital Signs Temp 98 F 09/23/18 12:05 Pulse 85 09/23/18 12:05 Resp 18 09/23/18 12:05 BP 102/68 09/23/18 12:05 Pulse Ox 98 09/23/18 12:05 Intake & Output 09/22/18 09/23/18 09/23/18 18:59 06:59 18:59 Intake Total 491.25 340 Balance 491.25 340 Weight (lbs) 65.045 kg Intake: Intake, IV Amount 491.25 D5-0.45NS 1,000 ml @ 75 491.25 mls/hr IV .[id number] [facility] Rx #:[id number] Oral 340 Other: # Voids 2 # Bowel Movements 2 Stool Characteristics Soft Liquid Brown Weight Source Bedscale Active Medications: Current Medications Acetaminophen (Tylenol) 650 mg PO Q6HR PRN PRN Reason: Fever > 101 Stop: 11/21/18 20:18 Bisacodyl (Dulcolax 10 Mg Supp) 10 mg RC Q72H PRN PRN Reason: Constipation Stop: 11/21/18 20:18 Calcium Carbonate (Os-Zay) 500 mg PO BID [facility] Stop: 11/22/18 08:59 Last Admin: 09/23/18 09:16 Dose: 500 mg Calcium Carbonate (Os-Zay) 500 mg PO DAILY [facility] Stop: 11/23/18 08:59 Dicyclomine HCl (Bentyl) 10 mg PO TID PRN PRN Reason: Irritable Bowel Stop: 11/21/18 20:18 Diphenhydramine HCl (Benadryl) 50 mg PO HS [facility] Stop: 11/21/18 20:59 Last Admin: 09/22/18 22:27 Dose: 50 mg Diphenhydramine HCl (Benadryl) 50 mg PO DAILY [facility] Stop: 11/23/18 08:59 Divalproex Sodium (Depakote Dr) 500 mg PO BID [facility]; Protocol Stop: 11/22/18 08:59 Last Admin: 09/23/18 09:17 Dose: 500 mg Docusate Sodium (Colace) 100 mg PO BID [facility] Stop: 11/22/18 08:59 Last Admin: 09/23/18 09:17 Dose: 100 mg Dextrose/Sodium Chloride (D5-0.45ns) 1,000 mls @ 75 mls/hr IV .[id number] [facility] Stop: 11/21/18 00:14 Last Admin: 09/23/18 06:36 Dose: Not Given Levothyroxine Sodium (Synthroid) 0.1 mg PO QDAC [facility] Stop: 11/22/18 07:29 Last Admin: 09/23/18 06:36 Dose: 0.1 mg Loratadine (Claritin) 10 mg PO DAILY [facility] Stop: 11/22/18 08:59 Last Admin: 09/23/18 09:16 Dose: 10 mg Lorazepam (Ativan) 1 mg PO TID [facility]; Protocol Stop: 11/21/18 20:59 Last Admin: 09/23/18 13:13 Dose: Not Given Lorazepam (Ativan) 1 mg PO Q12H PRN PRN Reason: ANXIETY Stop: 11/22/18 09:28 Magnesium Hydroxide (Milk Of Magnesia) 30 ml PO Q4H PRN PRN Reason: Constipation Stop: 11/21/18 20:18 Miscellaneous (Linaclotide [Linzess]) 145 mcg PO DAILY [facility] Stop: 11/22/18 08:59 Miscellaneous (Lubiprostone [Amitiza]) 24 mcg PO BID [facility] Stop: 11/22/18 08:59 Olanzapine (Zyprexa) 10 mg PO QAM [facility]; Protocol Stop: 11/22/18 08:59 Last Admin: 09/23/18 09:16 Dose: 10 mg Olanzapine (Zyprexa) 15 mg PO HS [facility]; Protocol Stop: 11/21/18 20:59 Last Admin: 09/22/18 22:28 Dose: 15 mg Promethazine HCl (Phenergan) 12.5 mg PO Q6HR PRN PRN Reason: Cough Stop: 11/21/18 20:18 Quetiapine Fumarate (Seroquel) 400 mg PO BID [facility]; Protocol Stop: 11/22/18 08:59 Last Admin: 09/23/18 09:16 Dose: 400 mg Risperidone (Risperdal) 2 mg PO DAILY [facility] Stop: 11/23/18 08:59 Simethicone (Mylicon) 80 mg PO TID [facility] Stop: 11/21/18 20:59 Last Admin: 09/23/18 13:11 Dose: 80 mg Tamsulosin HCl (Flomax) 0.4 mg PO HS [facility] Stop: 11/22/18 20:59 Vitamin D (Vitamin D) 400 iu PO DAILY [facility] Stop: 11/22/18 08:59 Last Admin: 09/23/18 09:16 Dose: 400 iu General: alert HEENT: NC/AT Neck: Supple, No JVD Lungs: CTAB Cardiovascular: RRR, Normal S1, Normal S2 Abdomen: soft, tender Extremities: clear Neurological: no change Internal Medicine Assmt/Plan - Assessment Assessment: severe constipation abd pain hypothyroidism bph schizophrenia - Plan Plan: as per order sheet discharge planning
[2018-09-23] MEDS ORDERED: Fleet Enema 135 mL RC ONE (19:43)
[2018-09-23] MEDS ORDERED: Magnesium Citrate 1.75 GM/300 mL Bottle PO ONE (22:00)
[2018-09-24 06:00] LABS: % BASOPHILS 0.3 % (0.0-2.0); % EOSINOPHILS 1.5 % (0.0-5.0); % LYMPHOCYTES 36.7 % (20.0-50.0); % MONOCYTES 8.2 % (2.0-10.0); % NEUTROPHILS 53.3 % (40.0-80.0); EOSINOPHILE ABSOLUTE 0.1 Th/cmm (0.1-0.4); HEMATOCRIT 43.3 % (41.0-60); HEMOGLOBIN 14.7 gm/dL (12-16); LYMPHOCYTE ABSOLUTE 3.3 Th/cmm (1.5-3.0); MEAN CORPUSCULAR HEMOGLOBIN 30.9 pg (26.0-30.0); MEAN PLATELET VOLUME 8.5 fl; MONOCYTE ABSOLUTE 0.7 Th/cmm (0.3-1.0); PLATELET COUNT 198 Th/cmm (150-400); RED BLOOD COUNT 4.76 Mil/cmm (4.30-5.70); RED CELL DISTRIBUTION WIDTH 12.7 % (11.5-20.0); WHITE BLOOD COUNT 9.1 Th/cmm (4.8-10.8)
[2018-09-24 06:16] LABS: ANION GAP 13.1 (7.0-16.0); BUN - UREA NITROGEN 19 mg/dL (7-25); CHLORIDE 111 mEq/L (98-107); GLUCOSE 96 mg/dL (70-105); POTASSIUM SERUM 4.1 mEq/L (3.5-5.1); SODIUM SERUM 140 mEq/L (136-145)
[2018-09-24 06:17] LABS: CALCIUM SERUM 9.2 mg/dL (8.6-10.3); GFR AFRICAN-AMERICAN > 60.0 ml/min (>90); GFR NON AFRICAN-AMERICAN > 60.0 ml/min
[2018-09-24] MEDS: D5-0.45NS 1,000 ML IV SCH (06:35)
[2018-09-24] MEDS: Levothyroxine 0.1 Mg Tab PO SCH (07:30)
--- NOTE | 2018-09-24 11:00 | GI Progress Note ---
Subjective - Review of Systems Subjective: HAD SEVERAL BM LAST NIGHT Objective - Results Result Diagrams: 09/24/18 05:05 09/24/18 05:05 Recent Labs: Laboratory Last Values WBC 9.1 Th/cmm (4.8-10.8) 09/24/18 05:05 RBC 4.76 Mil/cmm (4.30-5.70) 09/24/18 05:05 Hgb 14.7 gm/dL (12-16) 09/24/18 05:05 Hct 43.3 % (41.0-60) 09/24/18 05:05 MCV 91.0 fl (80-99) 09/24/18 05:05 MCH 30.9 pg (26.0-30.0) H 09/24/18 05:05 MCHC Differential 34.0 pg (28.0-36.0) 09/24/18 05:05 RDW 12.7 % (11.5-20.0) 09/24/18 05:05 Plt Count 198 Th/cmm (150-400) 09/24/18 05:05 MPV 8.5 fl 09/24/18 05:05 Neutrophils % 53.3 % (40.0-80.0) 09/24/18 05:05 Lymphocytes % 36.7 % (20.0-50.0) 09/24/18 05:05 Monocytes % 8.2 % (2.0-10.0) 09/24/18 05:05 Eosinophils % 1.5 % (0.0-5.0) 09/24/18 05:05 Basophils % 0.3 % (0.0-2.0) 09/24/18 05:05 Sodium 140 mEq/L (136-145) 09/24/18 05:05 Potassium 4.1 mEq/L (3.5-5.1) 09/24/18 05:05 Chloride 111 mEq/L (98-107) H 09/24/18 05:05 Carbon Dioxide 20.0 mEq/L (21.0-31.0) L 09/24/18 05:05 Anion Gap 13.1 (7.0-16.0) 09/24/18 05:05 BUN 19 mg/dL (7-25) 09/24/18 05:05 Creatinine 1.0 mg/dL (0.7-1.3) 09/24/18 05:05 Est GFR ( Amer) > 60.0 ml/min (>90) 09/24/18 05:05 Est GFR (Non-Af Amer) > 60.0 ml/min 09/24/18 05:05 BUN/Creatinine Ratio 19.0 09/24/18 05:05 Glucose 96 mg/dL (70-105) 09/24/18 05:05 POC Glucose 122 MG/DL (70 - 105) H 09/22/18 00:48 Calcium 9.2 mg/dL (8.6-10.3) 09/24/18 05:05 Total Bilirubin 0.5 mg/dL (0.3-1.0) 09/22/18 06:16 AST 19 U/L (13-39) 09/22/18 06:16 ALT 16 U/L (7-52) 09/22/18 06:16 Alkaline Phosphatase 67 U/L (34-104) 09/22/18 06:16 Troponin I < 0.01 ng/mL (0.01-0.05) L 09/21/18 21:35 B-Natriuretic Peptide < 5.0 pg/mL (5.0-100.0) L 09/21/18 21:35 Total Protein 5.9 gm/dL (6.0-8.3) L 09/22/18 06:16 Albumin 3.8 gm/dL (4.2-5.5) L 09/22/18 06:16 Globulin 2.1 gm/dL 09/22/18 06:16 Albumin/Globulin Ratio 1.8 (1.0-1.8) 09/22/18 06:16 Triglycerides 61 mg/dL (<150) 09/22/18 06:16 Cholesterol 117 mg/dL (<200) 09/22/18 06:16 LDL Cholesterol Direct 68 mg/dL (75-193) L 09/22/18 06:16 HDL Cholesterol 42 mg/dL (23-92) 09/22/18 06:16 TSH 13.42 uIU/ml (0.34-5.60) H 09/22/18 06:16 Urine Source RANDOM 09/21/18 23:25 Urine Color YELLOW 09/21/18 23:25 Urine Clarity CLEAR (CLEAR) 09/21/18 23:25 Urine pH 8.0 (4.6 - 8.0) 09/21/18 23:25 Ur Specific [place] 1.015 (1.005-1.030) 09/21/18 23:25 Urine Protein NEGATIVE mg/dL (NEGATIVE) 09/21/18 23:25 Urine Glucose (UA) NEGATIVE mg/dL (NEGATIVE) 09/21/18 23:25 Urine Ketones NEGATIVE mg/dL (NEGATIVE) 09/21/18 23:25 Urine Blood NEGATIVE (NEGATIVE) 09/21/18 23:25 Urine Nitrate NEGATIVE (NEGATIVE) 09/21/18 23:25 Urine Bilirubin NEGATIVE (NEGATIVE) 09/21/18 23:25 Urine Urobilinogen 0.2 E.U./dL (0.2 - 1.0) 09/21/18 23:25 Ur Leukocyte Esterase NEGATIVE (NEGATIVE) 09/21/18 23:25 - Physical Exam Vitals and I&O: Vital Signs Temp 98 F 09/24/18 04:00 Pulse 94 09/24/18 09:58 Resp 17 09/24/18 04:00 BP 104/72 09/24/18 04:00 Pulse Ox 95 09/24/18 04:00 Intake & Output 09/23/18 09/24/18 09/24/18 18:59 06:59 18:59 Intake Total 300 1.25 720 Balance 300 1.25 720 Weight (lbs) 65.771 kg 65.516 kg Intake: Intake, IV Amount 1.25 D5-0.45NS 1,000 ml @ 75 1.25 mls/hr IV .[id number] [facility] Rx #:[id number] Oral 300 720 Other: # Voids 3 3 # Bowel Movements 1 4 Weight Source Bedscale Bedscale Active Medications: Current Medications Acetaminophen (Tylenol) 650 mg PO Q6HR PRN PRN Reason: Fever > 101 Stop: 11/21/18 20:18 Bisacodyl (Dulcolax 10 Mg Supp) 10 mg RC Q72H PRN PRN Reason: Constipation Stop: 11/21/18 20:18 Calcium Carbonate (Os-Zay) 500 mg PO BID [facility] Stop: 11/22/18 08:59 Last Admin: 09/24/18 09:59 Dose: 500 mg Calcium Carbonate (Os-Zay) 500 mg PO DAILY [facility] Stop: 11/23/18 08:59 Last Admin: 09/24/18 09:59 Dose: Not Given Dicyclomine HCl (Bentyl) 10 mg PO TID PRN PRN Reason: Irritable Bowel Stop: 11/21/18 20:18 Diphenhydramine HCl (Benadryl) 50 mg PO HS [facility] Stop: 11/21/18 20:59 Last Admin: 09/23/18 20:33 Dose: 50 mg Diphenhydramine HCl (Benadryl) 50 mg PO DAILY [facility] Stop: 11/23/18 08:59 Last Admin: 09/24/18 09:58 Dose: 50 mg Divalproex Sodium (Depakote Dr) 500 mg PO BID [facility]; Protocol Stop: 11/22/18 08:59 Last Admin: 09/24/18 09:59 Dose: 500 mg Docusate Sodium (Colace) 100 mg PO BID [facility] Stop: 11/22/18 08:59 Last Admin: 09/24/18 10:01 Dose: Not Given Dextrose/Sodium Chloride (D5-0.45ns) 1,000 mls @ 75 mls/hr IV .[id number] [facility] Stop: 11/21/18 00:14 Last Infusion: 09/24/18 06:36 Dose: 75 mls/hr Levothyroxine Sodium (Synthroid) 0.1 mg PO QDAC [facility] Stop: 11/22/18 07:29 Last Admin: 09/24/18 07:30 Dose: 0.1 mg Loratadine (Claritin) 10 mg PO DAILY [facility] Stop: 11/22/18 08:59 Last Admin: 09/24/18 09:59 Dose: 10 mg Lorazepam (Ativan) 1 mg PO TID [facility]; Protocol Stop: 11/21/18 20:59 Last Admin: 09/24/18 09:57 Dose: 1 mg Lorazepam (Ativan) 1 mg PO Q12H PRN PRN Reason: ANXIETY Stop: 11/22/18 09:28 Last Admin: 09/24/18 07:20 Dose: 1 mg Magnesium Hydroxide (Milk Of Magnesia) 30 ml PO Q4H PRN PRN Reason: Constipation Stop: 11/21/18 20:18 Miscellaneous (Linaclotide [Linzess]) 145 mcg PO DAILY [facility] Stop: 11/22/18 08:59 Olanzapine (Zyprexa) 10 mg PO QAM [facility]; Protocol Stop: 11/22/18 08:59 Last Admin: 09/24/18 09:58 Dose: 10 mg Olanzapine (Zyprexa) 15 mg PO HS [facility]; Protocol Stop: 11/21/18 20:59 Last Admin: 09/23/18 20:32 Dose: 15 mg Polyethylene Glycol/Electrolytes (Golytely) 2,000 ml PO X1 ONE Stop: 09/24/18 11:01 Promethazine HCl (Phenergan) 12.5 mg PO Q6HR PRN PRN Reason: Cough Stop: 11/21/18 20:18 Quetiapine Fumarate (Seroquel) 400 mg PO BID [facility]; Protocol Stop: 11/22/18 08:59 Last Admin: 09/24/18 09:57 Dose: 400 mg Risperidone (Risperdal) 2 mg PO DAILY [facility] Stop: 11/23/18 08:59 Last Admin: 09/24/18 09:58 Dose: 2 mg Simethicone (Mylicon) 80 mg PO TID [facility] Stop: 11/21/18 20:59 Last Admin: 09/24/18 09:57 Dose: 80 mg Tamsulosin HCl (Flomax) 0.4 mg PO HS [facility] Stop: 11/22/18 20:59 Last Admin: 09/23/18 20:33 Dose: 0.4 mg Vitamin D (Vitamin D) 400 iu PO DAILY [facility] Stop: 11/22/18 08:59 Last Admin: 09/24/18 09:57 Dose: 400 iu Assessment/Plan - Assessment Assessment: 57 YO MALE WITH CONSTIPATION HAD SEVERAL BM 1.CONT LAXATIVES 2.KUB TOMORROW
--- NOTE | 2018-09-24 18:15 | Internal Medicine Prog Note ---
Internal Medicine Subjective - Subjective Service Date: 09/24/18 Patient is:: awake, verbal, talking, other Patient Complaints of:: constipation, bloated (abd pain ), other Per staff patient has:: no adverse event Internal Medicine Objective - Results Result Diagrams: 09/24/18 05:05 09/24/18 05:05 Recent Labs: Laboratory Last Values WBC 9.1 Th/cmm (4.8-10.8) 09/24/18 05:05 RBC 4.76 Mil/cmm (4.30-5.70) 09/24/18 05:05 Hgb 14.7 gm/dL (12-16) 09/24/18 05:05 Hct 43.3 % (41.0-60) 09/24/18 05:05 MCV 91.0 fl (80-99) 09/24/18 05:05 MCH 30.9 pg (26.0-30.0) H 09/24/18 05:05 MCHC Differential 34.0 pg (28.0-36.0) 09/24/18 05:05 RDW 12.7 % (11.5-20.0) 09/24/18 05:05 Plt Count 198 Th/cmm (150-400) 09/24/18 05:05 MPV 8.5 fl 09/24/18 05:05 Neutrophils % 53.3 % (40.0-80.0) 09/24/18 05:05 Lymphocytes % 36.7 % (20.0-50.0) 09/24/18 05:05 Monocytes % 8.2 % (2.0-10.0) 09/24/18 05:05 Eosinophils % 1.5 % (0.0-5.0) 09/24/18 05:05 Basophils % 0.3 % (0.0-2.0) 09/24/18 05:05 Sodium 140 mEq/L (136-145) 09/24/18 05:05 Potassium 4.1 mEq/L (3.5-5.1) 09/24/18 05:05 Chloride 111 mEq/L (98-107) H 09/24/18 05:05 Carbon Dioxide 20.0 mEq/L (21.0-31.0) L 09/24/18 05:05 Anion Gap 13.1 (7.0-16.0) 09/24/18 05:05 BUN 19 mg/dL (7-25) 09/24/18 05:05 Creatinine 1.0 mg/dL (0.7-1.3) 09/24/18 05:05 Est GFR ( Amer) > 60.0 ml/min (>90) 09/24/18 05:05 Est GFR (Non-Af Amer) > 60.0 ml/min 09/24/18 05:05 BUN/Creatinine Ratio 19.0 09/24/18 05:05 Glucose 96 mg/dL (70-105) 09/24/18 05:05 POC Glucose 122 MG/DL (70 - 105) H 09/22/18 00:48 Calcium 9.2 mg/dL (8.6-10.3) 09/24/18 05:05 Total Bilirubin 0.5 mg/dL (0.3-1.0) 09/22/18 06:16 AST 19 U/L (13-39) 09/22/18 06:16 ALT 16 U/L (7-52) 09/22/18 06:16 Alkaline Phosphatase 67 U/L (34-104) 09/22/18 06:16 Troponin I < 0.01 ng/mL (0.01-0.05) L 09/21/18 21:35 B-Natriuretic Peptide < 5.0 pg/mL (5.0-100.0) L 09/21/18 21:35 Total Protein 5.9 gm/dL (6.0-8.3) L 09/22/18 06:16 Albumin 3.8 gm/dL (4.2-5.5) L 09/22/18 06:16 Globulin 2.1 gm/dL 09/22/18 06:16 Albumin/Globulin Ratio 1.8 (1.0-1.8) 09/22/18 06:16 Triglycerides 61 mg/dL (<150) 09/22/18 06:16 Cholesterol 117 mg/dL (<200) 09/22/18 06:16 LDL Cholesterol Direct 68 mg/dL (75-193) L 09/22/18 06:16 HDL Cholesterol 42 mg/dL (23-92) 09/22/18 06:16 TSH 13.42 uIU/ml (0.34-5.60) H 09/22/18 06:16 Urine Source RANDOM 09/21/18 23:25 Urine Color YELLOW 09/21/18 23:25 Urine Clarity CLEAR (CLEAR) 09/21/18 23:25 Urine pH 8.0 (4.6 - 8.0) 09/21/18 23:25 Ur Specific [place] 1.015 (1.005-1.030) 09/21/18 23:25 Urine Protein NEGATIVE mg/dL (NEGATIVE) 09/21/18 23:25 Urine Glucose (UA) NEGATIVE mg/dL (NEGATIVE) 09/21/18 23:25 Urine Ketones NEGATIVE mg/dL (NEGATIVE) 09/21/18 23:25 Urine Blood NEGATIVE (NEGATIVE) 09/21/18 23:25 Urine Nitrate NEGATIVE (NEGATIVE) 09/21/18 23:25 Urine Bilirubin NEGATIVE (NEGATIVE) 09/21/18 23:25 Urine Urobilinogen 0.2 E.U./dL (0.2 - 1.0) 09/21/18 23:25 Ur Leukocyte Esterase NEGATIVE (NEGATIVE) 09/21/18 23:25 - Physical Exam Vitals and I&O: Vital Signs Temp 97.8 F 09/24/18 12:00 Pulse 80 09/24/18 17:29 Resp 18 09/24/18 12:00 BP 111/78 09/24/18 12:00 Pulse Ox 93 09/24/18 12:00 Intake & Output 09/23/18 09/24/18 09/24/18 18:59 06:59 18:59 Intake Total 300 1.25 720 Balance 300 1.25 720 Weight (lbs) 145 lb 144 lb 7 oz Intake: Intake, IV Amount 1.25 D5-0.45NS 1,000 ml @ 75 1.25 mls/hr IV .[id number] [facility] Rx #:[id number] Oral 300 720 Other: # Voids 3 3 # Bowel Movements 1 4 Stool Characteristics Formed Brown Weight Source Bedscale Bedscale Active Medications: Current Medications Acetaminophen (Tylenol) 650 mg PO Q6HR PRN PRN Reason: Fever > 101 Stop: 11/21/18 20:18 Bisacodyl (Dulcolax 10 Mg Supp) 10 mg RC Q72H PRN PRN Reason: Constipation Stop: 11/21/18 20:18 Calcium Carbonate (Os-Zay) 500 mg PO BID [facility] Stop: 11/22/18 08:59 Last Admin: 09/24/18 17:27 Dose: 500 mg Calcium Carbonate (Os-Zay) 500 mg PO DAILY [facility] Stop: 11/23/18 08:59 Last Admin: 09/24/18 09:59 Dose: Not Given Dicyclomine HCl (Bentyl) 10 mg PO TID PRN PRN Reason: Irritable Bowel Stop: 11/21/18 20:18 Diphenhydramine HCl (Benadryl) 50 mg PO HS [facility] Stop: 11/21/18 20:59 Last Admin: 09/23/18 20:33 Dose: 50 mg Diphenhydramine HCl (Benadryl) 50 mg PO DAILY [facility] Stop: 11/23/18 08:59 Last Admin: 09/24/18 09:58 Dose: 50 mg Divalproex Sodium (Depakote Dr) 500 mg PO BID [facility]; Protocol Stop: 11/22/18 08:59 Last Admin: 09/24/18 17:30 Dose: Not Given Docusate Sodium (Colace) 100 mg PO BID [facility] Stop: 11/22/18 08:59 Last Admin: 09/24/18 17:30 Dose: Not Given Dextrose/Sodium Chloride (D5-0.45ns) 1,000 mls @ 75 mls/hr IV .[id number] [facility] Stop: 11/21/18 00:14 Last Infusion: 09/24/18 06:36 Dose: 75 mls/hr Levothyroxine Sodium (Synthroid) 0.1 mg PO QDAC [facility] Stop: 11/22/18 07:29 Last Admin: 09/24/18 07:30 Dose: 0.1 mg Loratadine (Claritin) 10 mg PO DAILY [facility] Stop: 11/22/18 08:59 Last Admin: 09/24/18 09:59 Dose: 10 mg Lorazepam (Ativan) 1 mg PO TID [facility]; Protocol Stop: 11/21/18 20:59 Last Admin: 09/24/18 14:08 Dose: 1 mg Lorazepam (Ativan) 1 mg PO Q12H PRN PRN Reason: ANXIETY Stop: 11/22/18 09:28 Last Admin: 09/24/18 07:20 Dose: 1 mg Magnesium Hydroxide (Milk Of Magnesia) 30 ml PO Q4H PRN PRN Reason: Constipation Stop: 11/21/18 20:18 Miscellaneous (Linaclotide [Linzess]) 145 mcg PO DAILY [facility] Stop: 11/22/18 08:59 Olanzapine (Zyprexa) 10 mg PO QAM [facility]; Protocol Stop: 11/22/18 08:59 Last Admin: 09/24/18 09:58 Dose: 10 mg Olanzapine (Zyprexa) 15 mg PO HS [facility]; Protocol Stop: 11/21/18 20:59 Last Admin: 09/23/18 20:32 Dose: 15 mg Promethazine HCl (Phenergan) 12.5 mg PO Q6HR PRN PRN Reason: Cough Stop: 11/21/18 20:18 Quetiapine Fumarate (Seroquel) 400 mg PO BID [facility]; Protocol Stop: 11/22/18 08:59 Last Admin: 09/24/18 17:27 Dose: 400 mg Risperidone (Risperdal) 2 mg PO DAILY [facility] Stop: 11/23/18 08:59 Last Admin: 09/24/18 09:58 Dose: 2 mg Simethicone (Mylicon) 80 mg PO TID [facility] Stop: 11/21/18 20:59 Last Admin: 09/24/18 14:08 Dose: 80 mg Tamsulosin HCl (Flomax) 0.4 mg PO HS [facility] Stop: 11/22/18 20:59 Last Admin: 09/23/18 20:33 Dose: 0.4 mg Vitamin D (Vitamin D) 400 iu PO DAILY [facility] Stop: 11/22/18 08:59 Last Admin: 09/24/18 09:57 Dose: 400 iu General: alert HEENT: NC/AT Neck: Supple, No JVD Lungs: CTAB Cardiovascular: RRR, Normal S1, Normal S2 Abdomen: soft, tender Extremities: clear Neurological: no change Internal Medicine Assmt/Plan - Assessment Assessment: severe constipation abd pain hypothyroidism bph schizophrenia - Plan Plan: monitor i+o ivf for hydration gi following am labs
[2018-09-25] MEDS: Levothyroxine 0.1 Mg Tab PO SCH (06:55)
[2018-09-25 07:00] LABS: % BASOPHILS 0.5 % (0.0-2.0); % EOSINOPHILS 1.5 % (0.0-5.0); % LYMPHOCYTES 28.2 % (20.0-50.0); % MONOCYTES 8.3 % (2.0-10.0); % NEUTROPHILS 61.5 % (40.0-80.0); EOSINOPHILE ABSOLUTE 0.1 Th/cmm (0.1-0.4); HEMATOCRIT 41.9 % (41.0-60); HEMOGLOBIN 14.1 gm/dL (12-16); LYMPHOCYTE ABSOLUTE 2.5 Th/cmm (1.5-3.0); MEAN CELL VOLUME 93.1 fl (80-99); MEAN CORPUSCULAR HEMOGLOBIN 31.3 pg (26.0-30.0); MEAN CORPUSCULAR HGB CONC 33.6 pg (28.0-36.0); MEAN PLATELET VOLUME 9.1 fl; MONOCYTE ABSOLUTE 0.7 Th/cmm (0.3-1.0); NEUTROPHILE ABSOLUTE 5.6 Th/cmm (1.8-8.0); PLATELET COUNT 197 Th/cmm (150-400); WHITE BLOOD COUNT 8.9 Th/cmm (4.8-10.8)
[2018-09-25 07:17] LABS: ANION GAP 13.7 (7.0-16.0); BUN - UREA NITROGEN 19 mg/dL (7-25); CALCIUM SERUM 9.2 mg/dL (8.6-10.3); CARBON DIOXIDE 23.2 mEq/L (21.0-31.0); CHLORIDE 107 mEq/L (98-107); GFR AFRICAN-AMERICAN > 60.0 ml/min (>90); GFR NON AFRICAN-AMERICAN > 60.0 ml/min; GLUCOSE 102 mg/dL (70-105); POTASSIUM SERUM 3.9 mEq/L (3.5-5.1); SODIUM SERUM 140 mEq/L (136-145)
--- NOTE | 2018-09-25 07:49 | GI Progress Note ---
Subjective - Review of Systems Subjective: CONT TO HAVE LARGE BM'S Objective - Results Result Diagrams: 09/25/18 06:00 09/25/18 06:00 Recent Labs: Laboratory Last Values WBC 8.9 Th/cmm (4.8-10.8) 09/25/18 06:00 RBC 4.50 Mil/cmm (4.30-5.70) 09/25/18 06:00 Hgb 14.1 gm/dL (12-16) 09/25/18 06:00 Hct 41.9 % (41.0-60) 09/25/18 06:00 MCV 93.1 fl (80-99) 09/25/18 06:00 MCH 31.3 pg (26.0-30.0) H 09/25/18 06:00 MCHC Differential 33.6 pg (28.0-36.0) 09/25/18 06:00 RDW 13.0 % (11.5-20.0) 09/25/18 06:00 Plt Count 197 Th/cmm (150-400) 09/25/18 06:00 MPV 9.1 fl 09/25/18 06:00 Neutrophils % 61.5 % (40.0-80.0) 09/25/18 06:00 Lymphocytes % 28.2 % (20.0-50.0) 09/25/18 06:00 Monocytes % 8.3 % (2.0-10.0) 09/25/18 06:00 Eosinophils % 1.5 % (0.0-5.0) 09/25/18 06:00 Basophils % 0.5 % (0.0-2.0) 09/25/18 06:00 Sodium 140 mEq/L (136-145) 09/25/18 06:00 Potassium 3.9 mEq/L (3.5-5.1) 09/25/18 06:00 Chloride 107 mEq/L (98-107) 09/25/18 06:00 Carbon Dioxide 23.2 mEq/L (21.0-31.0) 09/25/18 06:00 Anion Gap 13.7 (7.0-16.0) 09/25/18 06:00 BUN 19 mg/dL (7-25) 09/25/18 06:00 Creatinine 1.0 mg/dL (0.7-1.3) 09/25/18 06:00 Est GFR ( Amer) > 60.0 ml/min (>90) 09/25/18 06:00 Est GFR (Non-Af Amer) > 60.0 ml/min 09/25/18 06:00 BUN/Creatinine Ratio 19.0 09/25/18 06:00 Glucose 102 mg/dL (70-105) 09/25/18 06:00 POC Glucose 122 MG/DL (70 - 105) H 09/22/18 00:48 Calcium 9.2 mg/dL (8.6-10.3) 09/25/18 06:00 Total Bilirubin 0.5 mg/dL (0.3-1.0) 09/22/18 06:16 AST 19 U/L (13-39) 09/22/18 06:16 ALT 16 U/L (7-52) 09/22/18 06:16 Alkaline Phosphatase 67 U/L (34-104) 09/22/18 06:16 Troponin I < 0.01 ng/mL (0.01-0.05) L 09/21/18 21:35 B-Natriuretic Peptide < 5.0 pg/mL (5.0-100.0) L 09/21/18 21:35 Total Protein 5.9 gm/dL (6.0-8.3) L 09/22/18 06:16 Albumin 3.8 gm/dL (4.2-5.5) L 09/22/18 06:16 Globulin 2.1 gm/dL 09/22/18 06:16 Albumin/Globulin Ratio 1.8 (1.0-1.8) 09/22/18 06:16 Triglycerides 61 mg/dL (<150) 09/22/18 06:16 Cholesterol 117 mg/dL (<200) 09/22/18 06:16 LDL Cholesterol Direct 68 mg/dL (75-193) L 09/22/18 06:16 HDL Cholesterol 42 mg/dL (23-92) 09/22/18 06:16 TSH 13.42 uIU/ml (0.34-5.60) H 09/22/18 06:16 Urine Source RANDOM 09/21/18 23:25 Urine Color YELLOW 09/21/18 23:25 Urine Clarity CLEAR (CLEAR) 09/21/18 23:25 Urine pH 8.0 (4.6 - 8.0) 09/21/18 23:25 Ur Specific [place] 1.015 (1.005-1.030) 09/21/18 23:25 Urine Protein NEGATIVE mg/dL (NEGATIVE) 09/21/18 23:25 Urine Glucose (UA) NEGATIVE mg/dL (NEGATIVE) 09/21/18 23:25 Urine Ketones NEGATIVE mg/dL (NEGATIVE) 09/21/18 23:25 Urine Blood NEGATIVE (NEGATIVE) 09/21/18 23:25 Urine Nitrate NEGATIVE (NEGATIVE) 09/21/18 23:25 Urine Bilirubin NEGATIVE (NEGATIVE) 09/21/18 23:25 Urine Urobilinogen 0.2 E.U./dL (0.2 - 1.0) 09/21/18 23:25 Ur Leukocyte Esterase NEGATIVE (NEGATIVE) 09/21/18 23:25 - Physical Exam Vitals and I&O: Vital Signs Temp 98.4 F 09/25/18 04:00 Pulse 68 09/25/18 04:00 Resp 18 09/25/18 04:00 BP 108/71 09/25/18 04:00 Pulse Ox 97 09/25/18 04:00 Intake & Output 09/24/18 09/25/18 09/25/18 18:59 06:59 18:59 Intake Total 1270 1718.75 Balance 1270 1718.75 Weight (lbs) 65.136 kg 64.438 kg Intake: Intake, IV Amount 998.75 D5-0.45NS 1,000 ml @ 75 998.75 mls/hr IV .[id number] [facility] Rx #:[id number] Oral 1270 720 Other: # Voids 3 3 # Bowel Movements 2 Stool Characteristics Formed Formed Brown Brown Weight Source Patient stated Bedscale Active Medications: Current Medications Acetaminophen (Tylenol) 650 mg PO Q6HR PRN PRN Reason: Fever > 101 Stop: 11/21/18 20:18 Bisacodyl (Dulcolax 10 Mg Supp) 10 mg RC Q72H PRN PRN Reason: Constipation Stop: 11/21/18 20:18 Calcium Carbonate (Os-Zay) 500 mg PO BID [facility] Stop: 11/22/18 08:59 Last Admin: 09/24/18 17:27 Dose: 500 mg Calcium Carbonate (Os-Zay) 500 mg PO DAILY [facility] Stop: 11/23/18 08:59 Last Admin: 09/24/18 09:59 Dose: Not Given Dicyclomine HCl (Bentyl) 10 mg PO TID PRN PRN Reason: Irritable Bowel Stop: 11/21/18 20:18 Diphenhydramine HCl (Benadryl) 50 mg PO HS [facility] Stop: 11/21/18 20:59 Last Admin: 09/24/18 21:34 Dose: 50 mg Diphenhydramine HCl (Benadryl) 50 mg PO DAILY [facility] Stop: 11/23/18 08:59 Last Admin: 09/24/18 09:58 Dose: 50 mg Divalproex Sodium (Depakote Dr) 500 mg PO BID [facility]; Protocol Stop: 11/22/18 08:59 Last Admin: 09/24/18 17:30 Dose: Not Given Docusate Sodium (Colace) 100 mg PO BID [facility] Stop: 11/22/18 08:59 Last Admin: 09/24/18 17:30 Dose: Not Given Dextrose/Sodium Chloride (D5-0.45ns) 1,000 mls @ 75 mls/hr IV .[id number] [facility] Stop: 11/21/18 00:14 Last Infusion: 09/25/18 06:24 Dose: Infused Levothyroxine Sodium (Synthroid) 0.1 mg PO QDAC [facility] Stop: 11/22/18 07:29 Last Admin: 09/25/18 06:55 Dose: 0.1 mg Loratadine (Claritin) 10 mg PO DAILY [facility] Stop: 11/22/18 08:59 Last Admin: 09/24/18 09:59 Dose: 10 mg Lorazepam (Ativan) 1 mg PO TID [facility]; Protocol Stop: 11/21/18 20:59 Last Admin: 09/24/18 21:34 Dose: 1 mg Lorazepam (Ativan) 1 mg PO Q12H PRN PRN Reason: ANXIETY Stop: 11/22/18 09:28 Last Admin: 09/24/18 07:20 Dose: 1 mg Magnesium Hydroxide (Milk Of Magnesia) 30 ml PO Q4H PRN PRN Reason: Constipation Stop: 11/21/18 20:18 Miscellaneous (Linaclotide [Linzess]) 145 mcg PO DAILY [facility] Stop: 11/22/18 08:59 Olanzapine (Zyprexa) 10 mg PO QAM [facility]; Protocol Stop: 11/22/18 08:59 Last Admin: 09/24/18 09:58 Dose: 10 mg Olanzapine (Zyprexa) 15 mg PO HS [facility]; Protocol Stop: 11/21/18 20:59 Last Admin: 09/24/18 21:34 Dose: 15 mg Promethazine HCl (Phenergan) 12.5 mg PO Q6HR PRN PRN Reason: Cough Stop: 11/21/18 20:18 Quetiapine Fumarate (Seroquel) 400 mg PO BID [facility]; Protocol Stop: 11/22/18 08:59 Last Admin: 09/24/18 17:27 Dose: 400 mg Risperidone (Risperdal) 2 mg PO DAILY [facility] Stop: 11/23/18 08:59 Last Admin: 09/24/18 09:58 Dose: 2 mg Simethicone (Mylicon) 80 mg PO TID [facility] Stop: 11/21/18 20:59 Last Admin: 09/24/18 21:35 Dose: 80 mg Tamsulosin HCl (Flomax) 0.4 mg PO HS [facility] Stop: 11/22/18 20:59 Last Admin: 09/24/18 21:35 Dose: 0.4 mg Vitamin D (Vitamin D) 400 iu PO DAILY [facility] Stop: 11/22/18 08:59 Last Admin: 09/24/18 09:57 Dose: 400 iu Assessment/Plan - Assessment Assessment: 57 YO MALE WITH CONSTIPATION HAVING BM 1.CONT LAXATIVES 2.KUB PENDING
--- NOTE | 2018-09-25 09:22 | Diagnostic Imaging Report ---
Exam: KUB of the abdomen HISTORY: Constipation Findings: Multiple views of the abdomen reviewed the study demonstrates fecal impaction. Visualized bony structures intact. No abnormal masses or calcifications are noted IMPRESSION: Fecal impaction
[2018-09-25] MEDS: D5-0.45NS 1,000 ML IV SCH (09:46)
--- NOTE | 2018-09-25 22:46 | Progress Notes ---
DATE: 09/25/2018 SUBJECTIVE: The patient was seen in his room. The patient is awake, but poor historian due to medical condition. According to the nurse, the patient had large bowel movement last night and pending for KUB for today for followup regarding constipation. Otherwise, the patient appears to be in no acute distress. OBJECTIVE: VITAL SIGNS: Temperature 97.2, heart rate 75, blood pressure 130/99, respirations of 18 and 96% on room air. HEENT: Head is atraumatic and normocephalic. Eyes: Bilateral conjuctivae clear. Bilateral pupils equal, round and reactive. NECK: Supple. No JVD. CARDIOVASCULAR: S1 and S2 without murmur. PULMONARY: Clear to auscultation. GASTROINTESTINAL: Soft and nontender without guarding. Positive bowel sounds. MUSCULOSKELETAL: No clubbing. No cyanosis noted. ASSESSMENT: 1. Constipation. 2. Schizophrenia. 3. Hypothyroidism. 4. Benign prostatic hypertrophy. PLAN: We will continue to monitor intake and output. We will continue IV hydration. We will follow up with GI. Will follow up with a KUB for today. Treatment plans were discussed with the patient's nurse. Treatment plans were discussed with Dr. Waddell. JOB# [id number]
[2018-09-26] MEDS: Levothyroxine 0.1 Mg Tab PO SCH (07:24)
--- NOTE | 2018-09-26 08:03 | GI Progress Note ---
Subjective - Review of Systems Subjective: NO EVENTS Objective - Results Result Diagrams: 09/25/18 06:00 09/25/18 06:00 Recent Labs: Laboratory Last Values WBC 8.9 Th/cmm (4.8-10.8) 09/25/18 06:00 RBC 4.50 Mil/cmm (4.30-5.70) 09/25/18 06:00 Hgb 14.1 gm/dL (12-16) 09/25/18 06:00 Hct 41.9 % (41.0-60) 09/25/18 06:00 MCV 93.1 fl (80-99) 09/25/18 06:00 MCH 31.3 pg (26.0-30.0) H 09/25/18 06:00 MCHC Differential 33.6 pg (28.0-36.0) 09/25/18 06:00 RDW 13.0 % (11.5-20.0) 09/25/18 06:00 Plt Count 197 Th/cmm (150-400) 09/25/18 06:00 MPV 9.1 fl 09/25/18 06:00 Neutrophils % 61.5 % (40.0-80.0) 09/25/18 06:00 Lymphocytes % 28.2 % (20.0-50.0) 09/25/18 06:00 Monocytes % 8.3 % (2.0-10.0) 09/25/18 06:00 Eosinophils % 1.5 % (0.0-5.0) 09/25/18 06:00 Basophils % 0.5 % (0.0-2.0) 09/25/18 06:00 Sodium 140 mEq/L (136-145) 09/25/18 06:00 Potassium 3.9 mEq/L (3.5-5.1) 09/25/18 06:00 Chloride 107 mEq/L (98-107) 09/25/18 06:00 Carbon Dioxide 23.2 mEq/L (21.0-31.0) 09/25/18 06:00 Anion Gap 13.7 (7.0-16.0) 09/25/18 06:00 BUN 19 mg/dL (7-25) 09/25/18 06:00 Creatinine 1.0 mg/dL (0.7-1.3) 09/25/18 06:00 Est GFR ( Amer) > 60.0 ml/min (>90) 09/25/18 06:00 Est GFR (Non-Af Amer) > 60.0 ml/min 09/25/18 06:00 BUN/Creatinine Ratio 19.0 09/25/18 06:00 Glucose 102 mg/dL (70-105) 09/25/18 06:00 POC Glucose 122 MG/DL (70 - 105) H 09/22/18 00:48 Calcium 9.2 mg/dL (8.6-10.3) 09/25/18 06:00 Total Bilirubin 0.5 mg/dL (0.3-1.0) 09/22/18 06:16 AST 19 U/L (13-39) 09/22/18 06:16 ALT 16 U/L (7-52) 09/22/18 06:16 Alkaline Phosphatase 67 U/L (34-104) 09/22/18 06:16 Troponin I < 0.01 ng/mL (0.01-0.05) L 09/21/18 21:35 B-Natriuretic Peptide < 5.0 pg/mL (5.0-100.0) L 09/21/18 21:35 Total Protein 5.9 gm/dL (6.0-8.3) L 09/22/18 06:16 Albumin 3.8 gm/dL (4.2-5.5) L 09/22/18 06:16 Globulin 2.1 gm/dL 09/22/18 06:16 Albumin/Globulin Ratio 1.8 (1.0-1.8) 09/22/18 06:16 Triglycerides 61 mg/dL (<150) 09/22/18 06:16 Cholesterol 117 mg/dL (<200) 09/22/18 06:16 LDL Cholesterol Direct 68 mg/dL (75-193) L 09/22/18 06:16 HDL Cholesterol 42 mg/dL (23-92) 09/22/18 06:16 TSH 13.42 uIU/ml (0.34-5.60) H 09/22/18 06:16 Urine Source RANDOM 09/21/18 23:25 Urine Color YELLOW 09/21/18 23:25 Urine Clarity CLEAR (CLEAR) 09/21/18 23:25 Urine pH 8.0 (4.6 - 8.0) 09/21/18 23:25 Ur Specific [place] 1.015 (1.005-1.030) 09/21/18 23:25 Urine Protein NEGATIVE mg/dL (NEGATIVE) 09/21/18 23:25 Urine Glucose (UA) NEGATIVE mg/dL (NEGATIVE) 09/21/18 23:25 Urine Ketones NEGATIVE mg/dL (NEGATIVE) 09/21/18 23:25 Urine Blood NEGATIVE (NEGATIVE) 09/21/18 23:25 Urine Nitrate NEGATIVE (NEGATIVE) 09/21/18 23:25 Urine Bilirubin NEGATIVE (NEGATIVE) 09/21/18 23:25 Urine Urobilinogen 0.2 E.U./dL (0.2 - 1.0) 09/21/18 23:25 Ur Leukocyte Esterase NEGATIVE (NEGATIVE) 09/21/18 23:25 - Physical Exam Vitals and I&O: Vital Signs Temp 97.9 F 09/26/18 04:00 Pulse 85 09/26/18 04:00 Resp 18 09/26/18 04:00 BP 84/62 09/26/18 04:00 Pulse Ox 96 09/26/18 04:00 Intake & Output 09/25/18 09/26/18 09/26/18 18:59 06:59 18:59 Intake Total 0 Balance 0 Weight (lbs) 62.142 kg Intake: Oral 0 Other: # Voids 4 # Bowel Movements 0 Stool Characteristics Brown Weight Source Bedscale Active Medications: Current Medications Acetaminophen (Tylenol) 650 mg PO Q6HR PRN PRN Reason: Fever > 101 Stop: 11/21/18 20:18 Bisacodyl (Dulcolax 10 Mg Supp) 10 mg RC Q72H PRN PRN Reason: Constipation Stop: 11/21/18 20:18 Calcium Carbonate (Os-Zay) 500 mg PO BID [facility] Stop: 11/22/18 08:59 Last Admin: 09/25/18 18:14 Dose: 500 mg Calcium Carbonate (Os-Zay) 500 mg PO DAILY [facility] Stop: 11/23/18 08:59 Last Admin: 09/25/18 09:39 Dose: Not Given Dicyclomine HCl (Bentyl) 10 mg PO TID PRN PRN Reason: Irritable Bowel Stop: 11/21/18 20:18 Diphenhydramine HCl (Benadryl) 50 mg PO HS [facility] Stop: 11/21/18 20:59 Last Admin: 09/25/18 20:22 Dose: 50 mg Diphenhydramine HCl (Benadryl) 50 mg PO DAILY [facility] Stop: 11/23/18 08:59 Last Admin: 09/25/18 09:49 Dose: 50 mg Divalproex Sodium (Depakote Dr) 500 mg PO BID [facility]; Protocol Stop: 11/22/18 08:59 Last Admin: 09/25/18 18:13 Dose: 500 mg Docusate Sodium (Colace) 100 mg PO BID [facility] Stop: 11/22/18 08:59 Last Admin: 09/25/18 18:14 Dose: 100 mg Dextrose/Sodium Chloride (D5-0.45ns) 1,000 mls @ 75 mls/hr IV .[id number] [facility] Stop: 11/21/18 00:14 Last Admin: 09/25/18 09:46 Dose: 75 mls/hr Levothyroxine Sodium (Synthroid) 0.1 mg PO QDAC [facility] Stop: 11/22/18 07:29 Last Admin: 09/26/18 07:24 Dose: 0.1 mg Loratadine (Claritin) 10 mg PO DAILY [facility] Stop: 11/22/18 08:59 Last Admin: 09/25/18 09:48 Dose: 10 mg Lorazepam (Ativan) 1 mg PO TID [facility]; Protocol Stop: 11/21/18 20:59 Last Admin: 09/25/18 20:21 Dose: 1 mg Lorazepam (Ativan) 1 mg PO Q12H PRN PRN Reason: ANXIETY Stop: 11/22/18 09:28 Last Admin: 09/24/18 07:20 Dose: 1 mg Magnesium Hydroxide (Milk Of Magnesia) 30 ml PO Q4H PRN PRN Reason: Constipation Stop: 11/21/18 20:18 Olanzapine (Zyprexa) 10 mg PO QAM [facility]; Protocol Stop: 11/22/18 08:59 Last Admin: 09/25/18 09:47 Dose: 10 mg Olanzapine (Zyprexa) 15 mg PO HS [facility]; Protocol Stop: 11/21/18 20:59 Last Admin: 09/25/18 20:22 Dose: 15 mg Promethazine HCl (Phenergan) 12.5 mg PO Q6HR PRN PRN Reason: Cough Stop: 11/21/18 20:18 Quetiapine Fumarate (Seroquel) 400 mg PO BID [facility]; Protocol Stop: 11/22/18 08:59 Last Admin: 09/25/18 18:13 Dose: 400 mg Risperidone (Risperdal) 2 mg PO DAILY [facility] Stop: 11/23/18 08:59 Last Admin: 09/25/18 09:47 Dose: 2 mg Simethicone (Mylicon) 80 mg PO TID [facility] Stop: 11/21/18 20:59 Last Admin: 09/25/18 20:21 Dose: 80 mg Tamsulosin HCl (Flomax) 0.4 mg PO HS [facility] Stop: 11/22/18 20:59 Last Admin: 09/25/18 20:21 Dose: 0.4 mg Vitamin D (Vitamin D) 400 iu PO DAILY [facility] Stop: 11/22/18 08:59 Last Admin: 09/25/18 09:47 Dose: 400 iu Assessment/Plan - Assessment Assessment: 57 YO MALE WITH CONSTIPATION HAVING BM 1.CONT LAXATIVES
--- NOTE | 2018-09-26 12:01 | Internal Medicine Prog Note ---
Internal Medicine Subjective - Subjective Patient seen and examined:: chart reviewed Patient is:: awake, verbal, talking, other (n o distress) Patient Complaints of:: constipation, bloated (abd pain ), other Per staff patient has:: no adverse event Internal Medicine Objective - Results Result Diagrams: 09/25/18 06:00 09/25/18 06:00 Recent Labs: Laboratory Last Values WBC 8.9 Th/cmm (4.8-10.8) 09/25/18 06:00 RBC 4.50 Mil/cmm (4.30-5.70) 09/25/18 06:00 Hgb 14.1 gm/dL (12-16) 09/25/18 06:00 Hct 41.9 % (41.0-60) 09/25/18 06:00 MCV 93.1 fl (80-99) 09/25/18 06:00 MCH 31.3 pg (26.0-30.0) H 09/25/18 06:00 MCHC Differential 33.6 pg (28.0-36.0) 09/25/18 06:00 RDW 13.0 % (11.5-20.0) 09/25/18 06:00 Plt Count 197 Th/cmm (150-400) 09/25/18 06:00 MPV 9.1 fl 09/25/18 06:00 Neutrophils % 61.5 % (40.0-80.0) 09/25/18 06:00 Lymphocytes % 28.2 % (20.0-50.0) 09/25/18 06:00 Monocytes % 8.3 % (2.0-10.0) 09/25/18 06:00 Eosinophils % 1.5 % (0.0-5.0) 09/25/18 06:00 Basophils % 0.5 % (0.0-2.0) 09/25/18 06:00 Sodium 140 mEq/L (136-145) 09/25/18 06:00 Potassium 3.9 mEq/L (3.5-5.1) 09/25/18 06:00 Chloride 107 mEq/L (98-107) 09/25/18 06:00 Carbon Dioxide 23.2 mEq/L (21.0-31.0) 09/25/18 06:00 Anion Gap 13.7 (7.0-16.0) 09/25/18 06:00 BUN 19 mg/dL (7-25) 09/25/18 06:00 Creatinine 1.0 mg/dL (0.7-1.3) 09/25/18 06:00 Est GFR ( Amer) > 60.0 ml/min (>90) 09/25/18 06:00 Est GFR (Non-Af Amer) > 60.0 ml/min 09/25/18 06:00 BUN/Creatinine Ratio 19.0 09/25/18 06:00 Glucose 102 mg/dL (70-105) 09/25/18 06:00 POC Glucose 122 MG/DL (70 - 105) H 09/22/18 00:48 Calcium 9.2 mg/dL (8.6-10.3) 09/25/18 06:00 Total Bilirubin 0.5 mg/dL (0.3-1.0) 09/22/18 06:16 AST 19 U/L (13-39) 09/22/18 06:16 ALT 16 U/L (7-52) 09/22/18 06:16 Alkaline Phosphatase 67 U/L (34-104) 09/22/18 06:16 Troponin I < 0.01 ng/mL (0.01-0.05) L 09/21/18 21:35 B-Natriuretic Peptide < 5.0 pg/mL (5.0-100.0) L 09/21/18 21:35 Total Protein 5.9 gm/dL (6.0-8.3) L 09/22/18 06:16 Albumin 3.8 gm/dL (4.2-5.5) L 09/22/18 06:16 Globulin 2.1 gm/dL 09/22/18 06:16 Albumin/Globulin Ratio 1.8 (1.0-1.8) 09/22/18 06:16 Triglycerides 61 mg/dL (<150) 09/22/18 06:16 Cholesterol 117 mg/dL (<200) 09/22/18 06:16 LDL Cholesterol Direct 68 mg/dL (75-193) L 09/22/18 06:16 HDL Cholesterol 42 mg/dL (23-92) 09/22/18 06:16 TSH 13.42 uIU/ml (0.34-5.60) H 09/22/18 06:16 Urine Source RANDOM 09/21/18 23:25 Urine Color YELLOW 09/21/18 23:25 Urine Clarity CLEAR (CLEAR) 09/21/18 23:25 Urine pH 8.0 (4.6 - 8.0) 09/21/18 23:25 Ur Specific [place] 1.015 (1.005-1.030) 09/21/18 23:25 Urine Protein NEGATIVE mg/dL (NEGATIVE) 09/21/18 23:25 Urine Glucose (UA) NEGATIVE mg/dL (NEGATIVE) 09/21/18 23:25 Urine Ketones NEGATIVE mg/dL (NEGATIVE) 09/21/18 23:25 Urine Blood NEGATIVE (NEGATIVE) 09/21/18 23:25 Urine Nitrate NEGATIVE (NEGATIVE) 09/21/18 23:25 Urine Bilirubin NEGATIVE (NEGATIVE) 09/21/18 23:25 Urine Urobilinogen 0.2 E.U./dL (0.2 - 1.0) 09/21/18 23:25 Ur Leukocyte Esterase NEGATIVE (NEGATIVE) 09/21/18 23:25 - Physical Exam Vitals and I&O: Vital Signs Temp 97.6 F 09/26/18 08:29 Pulse 76 09/26/18 08:42 Resp 18 09/26/18 08:29 BP 139/94 09/26/18 08:29 Pulse Ox 98 09/26/18 08:29 Intake & Output 09/25/18 09/26/18 09/26/18 18:59 06:59 18:59 Intake Total 0 Balance 0 Weight (lbs) 62.142 kg Intake: Oral 0 Other: # Voids 4 # Bowel Movements 0 Stool Characteristics Brown Formed Hard Brown Weight Source Bedscale Active Medications: Current Medications Acetaminophen (Tylenol) 650 mg PO Q6HR PRN PRN Reason: Fever > 101 Stop: 11/21/18 20:18 Bisacodyl (Dulcolax 10 Mg Supp) 10 mg RC Q72H PRN PRN Reason: Constipation Stop: 11/21/18 20:18 Calcium Carbonate (Os-Zay) 500 mg PO BID [facility] Stop: 11/22/18 08:59 Last Admin: 09/26/18 08:41 Dose: 500 mg Calcium Carbonate (Os-Zay) 500 mg PO DAILY [facility] Stop: 11/23/18 08:59 Last Admin: 09/26/18 08:44 Dose: Not Given Dicyclomine HCl (Bentyl) 10 mg PO TID PRN PRN Reason: Irritable Bowel Stop: 11/21/18 20:18 Diphenhydramine HCl (Benadryl) 50 mg PO HS [facility] Stop: 11/21/18 20:59 Last Admin: 09/25/18 20:22 Dose: 50 mg Diphenhydramine HCl (Benadryl) 50 mg PO DAILY [facility] Stop: 11/23/18 08:59 Last Admin: 09/26/18 08:45 Dose: 50 mg Divalproex Sodium (Depakote Dr) 500 mg PO BID [facility]; Protocol Stop: 11/22/18 08:59 Last Admin: 09/26/18 08:41 Dose: 500 mg Docusate Sodium (Colace) 100 mg PO BID [facility] Stop: 11/22/18 08:59 Last Admin: 09/26/18 08:41 Dose: 100 mg Dextrose/Sodium Chloride (D5-0.45ns) 1,000 mls @ 75 mls/hr IV .[id number] [facility] Stop: 11/21/18 00:14 Last Admin: 09/25/18 09:46 Dose: 75 mls/hr Levothyroxine Sodium (Synthroid) 0.1 mg PO QDAC [facility] Stop: 11/22/18 07:29 Last Admin: 09/26/18 07:24 Dose: 0.1 mg Loratadine (Claritin) 10 mg PO DAILY [facility] Stop: 11/22/18 08:59 Last Admin: 09/26/18 08:41 Dose: 10 mg Lorazepam (Ativan) 1 mg PO TID [facility]; Protocol Stop: 11/21/18 20:59 Last Admin: 09/26/18 08:42 Dose: 1 mg Lorazepam (Ativan) 1 mg PO Q12H PRN PRN Reason: ANXIETY Stop: 11/22/18 09:28 Last Admin: 09/24/18 07:20 Dose: 1 mg Lorazepam (Ativan) 1 mg IVP Q4HR PRN; Protocol PRN Reason: Anxiety Stop: 11/25/18 10:10 Magnesium Hydroxide (Milk Of Magnesia) 30 ml PO Q4H PRN PRN Reason: Constipation Stop: 11/21/18 20:18 Olanzapine (Zyprexa) 10 mg PO QAM [facility]; Protocol Stop: 11/22/18 08:59 Last Admin: 09/26/18 08:41 Dose: 10 mg Olanzapine (Zyprexa) 15 mg PO HS [facility]; Protocol Stop: 11/21/18 20:59 Last Admin: 09/25/18 20:22 Dose: 15 mg Promethazine HCl (Phenergan) 12.5 mg PO Q6HR PRN PRN Reason: Cough Stop: 11/21/18 20:18 Quetiapine Fumarate (Seroquel) 400 mg PO BID [facility]; Protocol Stop: 11/22/18 08:59 Last Admin: 09/26/18 08:41 Dose: 400 mg Risperidone (Risperdal) 2 mg PO DAILY [facility] Stop: 11/23/18 08:59 Last Admin: 09/26/18 08:40 Dose: 2 mg Simethicone (Mylicon) 80 mg PO TID [facility] Stop: 11/21/18 20:59 Last Admin: 09/25/18 20:21 Dose: 80 mg Tamsulosin HCl (Flomax) 0.4 mg PO HS [facility] Stop: 11/22/18 20:59 Last Admin: 09/25/18 20:21 Dose: 0.4 mg Vitamin D (Vitamin D) 400 iu PO DAILY [facility] Stop: 11/22/18 08:59 Last Admin: 09/26/18 08:42 Dose: 400 iu General: alert HEENT: NC/AT Neck: Supple, No JVD Lungs: CTAB Cardiovascular: RRR, Normal S1, Normal S2 Abdomen: soft, tender Extremities: clear Neurological: no change Internal Medicine Assmt/Plan - Assessment Assessment: severe constipation abd pain hypothyroidism bph schizophrenia - Plan Plan: as per order sheet discharge planning
[2018-09-27 06:35] LABS: % BASOPHILS 0.3 % (0.0-2.0); % EOSINOPHILS 0.8 % (0.0-5.0); % LYMPHOCYTES 21.7 % (20.0-50.0); % MONOCYTES 8.1 % (2.0-10.0); % NEUTROPHILS 69.1 % (40.0-80.0); EOSINOPHILE ABSOLUTE 0.1 Th/cmm (0.1-0.4); HEMATOCRIT 40.7 % (41.0-60); HEMOGLOBIN 13.9 gm/dL (12-16); LYMPHOCYTE ABSOLUTE 2.2 Th/cmm (1.5-3.0); MEAN CELL VOLUME 91.7 fl (80-99); MEAN CORPUSCULAR HEMOGLOBIN 31.3 pg (26.0-30.0); MEAN CORPUSCULAR HGB CONC 34.1 pg (28.0-36.0); MEAN PLATELET VOLUME 8.6 fl; MONOCYTE ABSOLUTE 0.8 Th/cmm (0.3-1.0); NEUTROPHILE ABSOLUTE 6.9 Th/cmm (1.8-8.0); PLATELET COUNT 224 Th/cmm (150-400); RED BLOOD COUNT 4.44 Mil/cmm (4.30-5.70); RED CELL DISTRIBUTION WIDTH 12.6 % (11.5-20.0)
[2018-09-27] MEDS: Levothyroxine 0.1 Mg Tab PO SCH (06:49)
[2018-09-27 06:51] LABS: ALB/GLOB RATIO 1.6 (1.0-1.8); ALBUMIN 3.6 gm/dL (4.2-5.5); ALKALINE PHOSPHATASE 77 U/L (34-104); ANION GAP 12.7 (7.0-16.0); BILIRUBIN,TOTAL 0.4 mg/dL (0.3-1.0); BUN - UREA NITROGEN 27 mg/dL (7-25); CALCIUM SERUM 9.3 mg/dL (8.6-10.3); CARBON DIOXIDE 22.2 mEq/L (21.0-31.0); CHLORIDE 109 mEq/L (98-107); CREATININE - SERUM 1.1 mg/dL (0.7-1.3); GFR AFRICAN-AMERICAN > 60.0 ml/min (>90); GFR NON AFRICAN-AMERICAN > 60.0 ml/min; GLUCOSE 111 mg/dL (70-105); POTASSIUM SERUM 3.9 mEq/L (3.5-5.1); SGOT 20 U/L (13-39); SGPT/ALT 18 U/L (7-52); SODIUM SERUM 140 mEq/L (136-145); TOTAL PROTEIN,SERUM 5.8 gm/dL (6.0-8.3)
--- NOTE | 2018-09-27 10:17 | GI Progress Note ---
Subjective - Review of Systems Subjective: NO EVENTS Objective - Results Result Diagrams: 09/27/18 05:50 09/27/18 05:50 Recent Labs: Laboratory Last Values WBC 10.0 Th/cmm (4.8-10.8) 09/27/18 05:50 RBC 4.44 Mil/cmm (4.30-5.70) 09/27/18 05:50 Hgb 13.9 gm/dL (12-16) 09/27/18 05:50 Hct 40.7 % (41.0-60) L 09/27/18 05:50 MCV 91.7 fl (80-99) 09/27/18 05:50 MCH 31.3 pg (26.0-30.0) H 09/27/18 05:50 MCHC Differential 34.1 pg (28.0-36.0) 09/27/18 05:50 RDW 12.6 % (11.5-20.0) 09/27/18 05:50 Plt Count 224 Th/cmm (150-400) 09/27/18 05:50 MPV 8.6 fl 09/27/18 05:50 Neutrophils % 69.1 % (40.0-80.0) 09/27/18 05:50 Lymphocytes % 21.7 % (20.0-50.0) 09/27/18 05:50 Monocytes % 8.1 % (2.0-10.0) 09/27/18 05:50 Eosinophils % 0.8 % (0.0-5.0) 09/27/18 05:50 Basophils % 0.3 % (0.0-2.0) 09/27/18 05:50 Sodium 140 mEq/L (136-145) 09/27/18 05:50 Potassium 3.9 mEq/L (3.5-5.1) 09/27/18 05:50 Chloride 109 mEq/L (98-107) H 09/27/18 05:50 Carbon Dioxide 22.2 mEq/L (21.0-31.0) 09/27/18 05:50 Anion Gap 12.7 (7.0-16.0) 09/27/18 05:50 BUN 27 mg/dL (7-25) H 09/27/18 05:50 Creatinine 1.1 mg/dL (0.7-1.3) 09/27/18 05:50 Est GFR ( Amer) > 60.0 ml/min (>90) 09/27/18 05:50 Est GFR (Non-Af Amer) > 60.0 ml/min 09/27/18 05:50 BUN/Creatinine Ratio 24.5 09/27/18 05:50 Glucose 111 mg/dL (70-105) H 09/27/18 05:50 POC Glucose 122 MG/DL (70 - 105) H 09/22/18 00:48 Calcium 9.3 mg/dL (8.6-10.3) 09/27/18 05:50 Total Bilirubin 0.4 mg/dL (0.3-1.0) 09/27/18 05:50 AST 20 U/L (13-39) 09/27/18 05:50 ALT 18 U/L (7-52) 09/27/18 05:50 Alkaline Phosphatase 77 U/L (34-104) 09/27/18 05:50 Troponin I < 0.01 ng/mL (0.01-0.05) L 09/21/18 21:35 B-Natriuretic Peptide < 5.0 pg/mL (5.0-100.0) L 09/21/18 21:35 Total Protein 5.8 gm/dL (6.0-8.3) L 09/27/18 05:50 Albumin 3.6 gm/dL (4.2-5.5) L 09/27/18 05:50 Globulin 2.2 gm/dL 09/27/18 05:50 Albumin/Globulin Ratio 1.6 (1.0-1.8) 09/27/18 05:50 Triglycerides 61 mg/dL (<150) 09/22/18 06:16 Cholesterol 117 mg/dL (<200) 09/22/18 06:16 LDL Cholesterol Direct 68 mg/dL (75-193) L 09/22/18 06:16 HDL Cholesterol 42 mg/dL (23-92) 09/22/18 06:16 TSH 13.42 uIU/ml (0.34-5.60) H 09/22/18 06:16 Urine Source RANDOM 09/21/18 23:25 Urine Color YELLOW 09/21/18 23:25 Urine Clarity CLEAR (CLEAR) 09/21/18 23:25 Urine pH 8.0 (4.6 - 8.0) 09/21/18 23:25 Ur Specific [place] 1.015 (1.005-1.030) 09/21/18 23:25 Urine Protein NEGATIVE mg/dL (NEGATIVE) 09/21/18 23:25 Urine Glucose (UA) NEGATIVE mg/dL (NEGATIVE) 09/21/18 23:25 Urine Ketones NEGATIVE mg/dL (NEGATIVE) 09/21/18 23:25 Urine Blood NEGATIVE (NEGATIVE) 09/21/18 23:25 Urine Nitrate NEGATIVE (NEGATIVE) 09/21/18 23:25 Urine Bilirubin NEGATIVE (NEGATIVE) 09/21/18 23:25 Urine Urobilinogen 0.2 E.U./dL (0.2 - 1.0) 09/21/18 23:25 Ur Leukocyte Esterase NEGATIVE (NEGATIVE) 09/21/18 23:25 - Physical Exam Vitals and I&O: Vital Signs Temp 98.8 F 09/27/18 04:00 Pulse 60 09/27/18 09:16 Resp 19 09/27/18 04:00 BP 108/68 09/27/18 04:00 Pulse Ox 97 09/27/18 04:00 Intake & Output 09/26/18 09/27/18 09/27/18 18:59 06:59 18:59 Weight (lbs) 62.142 kg Other: # Voids 2 Stool Characteristics Formed Formed Hard Hard Brown Brown Weight Source Bedscale Active Medications: Current Medications Acetaminophen (Tylenol) 650 mg PO Q6HR PRN PRN Reason: Fever > 101 Stop: 11/21/18 20:18 Bisacodyl (Dulcolax 10 Mg Supp) 10 mg RC Q72H PRN PRN Reason: Constipation Stop: 11/21/18 20:18 Last Admin: 09/27/18 08:53 Dose: 10 mg Calcium Carbonate (Os-Zay) 500 mg PO BID [facility] Stop: 11/22/18 08:59 Last Admin: 09/26/18 18:15 Dose: 500 mg Calcium Carbonate (Os-Zay) 500 mg PO DAILY [facility] Stop: 11/23/18 08:59 Last Admin: 09/27/18 08:52 Dose: 500 mg Dicyclomine HCl (Bentyl) 10 mg PO TID PRN PRN Reason: Irritable Bowel Stop: 11/21/18 20:18 Diphenhydramine HCl (Benadryl) 50 mg PO HS [facility] Stop: 11/21/18 20:59 Last Admin: 09/26/18 20:43 Dose: 50 mg Diphenhydramine HCl (Benadryl) 50 mg PO DAILY [facility] Stop: 11/23/18 08:59 Last Admin: 09/27/18 08:48 Dose: 25 mg Divalproex Sodium (Depakote Dr) 500 mg PO BID [facility]; Protocol Stop: 11/22/18 08:59 Last Admin: 09/27/18 08:48 Dose: 500 mg Docusate Sodium (Colace) 100 mg PO BID [facility] Stop: 11/22/18 08:59 Last Admin: 09/27/18 08:53 Dose: 100 mg Dextrose/Sodium Chloride (D5-0.45ns) 1,000 mls @ 75 mls/hr IV .[id number] [facility] Stop: 11/21/18 00:14 Last Admin: 09/25/18 09:46 Dose: 75 mls/hr Levothyroxine Sodium (Synthroid) 0.1 mg PO QDAC [facility] Stop: 11/22/18 07:29 Last Admin: 09/27/18 06:49 Dose: 0.1 mg Loratadine (Claritin) 10 mg PO DAILY [facility] Stop: 11/22/18 08:59 Last Admin: 09/26/18 08:41 Dose: 10 mg Lorazepam (Ativan) 1 mg PO TID [facility]; Protocol Stop: 11/21/18 20:59 Last Admin: 09/26/18 20:43 Dose: 1 mg Lorazepam (Ativan) 1 mg PO Q12H PRN PRN Reason: ANXIETY Stop: 11/22/18 09:28 Last Admin: 09/24/18 07:20 Dose: 1 mg Lorazepam (Ativan) 1 mg IVP Q4HR PRN; Protocol PRN Reason: Anxiety Stop: 11/25/18 10:10 Last Admin: 09/27/18 05:05 Dose: 1 mg Magnesium Hydroxide (Milk Of Magnesia) 30 ml PO Q4H PRN PRN Reason: Constipation Stop: 11/21/18 20:18 Olanzapine (Zyprexa) 10 mg PO QAM [facility]; Protocol Stop: 11/22/18 08:59 Last Admin: 09/27/18 08:53 Dose: 10 mg Olanzapine (Zyprexa) 15 mg PO HS [facility]; Protocol Stop: 11/21/18 20:59 Last Admin: 09/26/18 20:43 Dose: 15 mg Promethazine HCl (Phenergan) 12.5 mg PO Q6HR PRN PRN Reason: Cough Stop: 11/21/18 20:18 Quetiapine Fumarate (Seroquel) 400 mg PO BID [facility]; Protocol Stop: 11/22/18 08:59 Last Admin: 09/27/18 08:52 Dose: 400 mg Risperidone (Risperdal) 2 mg PO DAILY [facility] Stop: 11/23/18 08:59 Last Admin: 09/27/18 08:47 Dose: 2 mg Simethicone (Mylicon) 80 mg PO TID [facility] Stop: 11/21/18 20:59 Last Admin: 09/27/18 08:53 Dose: 80 mg Tamsulosin HCl (Flomax) 0.4 mg PO HS [facility] Stop: 11/22/18 20:59 Last Admin: 09/26/18 20:43 Dose: 0.4 mg Vitamin D (Vitamin D) 400 iu PO DAILY [facility] Stop: 11/22/18 08:59 Last Admin: 09/27/18 08:52 Dose: 400 iu Assessment/Plan - Assessment Assessment: 57 YO MALE WITH CONSTIPATION HAVING BM 1.CONT LAXATIVES 2.CONSIDER OUTPATIENT SCR COLO IF NONE BEFORE 3.CHECK KUB
--- NOTE | 2018-09-27 11:06 | Diagnostic Imaging Report ---
KUB abdominal film (portable) HISTORY: Constipation Compared with the prior exam of September 23, 2018, a large amount of stool seen throughout mildly dilated large bowel. Loops of nondilated small bowel is seen. IMPRESSION: 1. Persistent extensive stool noted throughout mildly dilated large bowel consistent with changes of constipation.
--- NOTE | 2018-09-27 12:51 | Internal Medicine Prog Note ---
Internal Medicine Subjective - Subjective Patient is:: awake, verbal, other (in no acute distress) Patient Complaints of:: constipation, bloated (abd pain ), other Per staff patient has:: no adverse event Internal Medicine Objective - Results Result Diagrams: 09/27/18 05:50 09/27/18 05:50 Recent Labs: Laboratory Last Values WBC 10.0 Th/cmm (4.8-10.8) 09/27/18 05:50 RBC 4.44 Mil/cmm (4.30-5.70) 09/27/18 05:50 Hgb 13.9 gm/dL (12-16) 09/27/18 05:50 Hct 40.7 % (41.0-60) L 09/27/18 05:50 MCV 91.7 fl (80-99) 09/27/18 05:50 MCH 31.3 pg (26.0-30.0) H 09/27/18 05:50 MCHC Differential 34.1 pg (28.0-36.0) 09/27/18 05:50 RDW 12.6 % (11.5-20.0) 09/27/18 05:50 Plt Count 224 Th/cmm (150-400) 09/27/18 05:50 MPV 8.6 fl 09/27/18 05:50 Neutrophils % 69.1 % (40.0-80.0) 09/27/18 05:50 Lymphocytes % 21.7 % (20.0-50.0) 09/27/18 05:50 Monocytes % 8.1 % (2.0-10.0) 09/27/18 05:50 Eosinophils % 0.8 % (0.0-5.0) 09/27/18 05:50 Basophils % 0.3 % (0.0-2.0) 09/27/18 05:50 Sodium 140 mEq/L (136-145) 09/27/18 05:50 Potassium 3.9 mEq/L (3.5-5.1) 09/27/18 05:50 Chloride 109 mEq/L (98-107) H 09/27/18 05:50 Carbon Dioxide 22.2 mEq/L (21.0-31.0) 09/27/18 05:50 Anion Gap 12.7 (7.0-16.0) 09/27/18 05:50 BUN 27 mg/dL (7-25) H 09/27/18 05:50 Creatinine 1.1 mg/dL (0.7-1.3) 09/27/18 05:50 Est GFR ( Amer) > 60.0 ml/min (>90) 09/27/18 05:50 Est GFR (Non-Af Amer) > 60.0 ml/min 09/27/18 05:50 BUN/Creatinine Ratio 24.5 09/27/18 05:50 Glucose 111 mg/dL (70-105) H 09/27/18 05:50 POC Glucose 122 MG/DL (70 - 105) H 09/22/18 00:48 Calcium 9.3 mg/dL (8.6-10.3) 09/27/18 05:50 Total Bilirubin 0.4 mg/dL (0.3-1.0) 09/27/18 05:50 AST 20 U/L (13-39) 09/27/18 05:50 ALT 18 U/L (7-52) 09/27/18 05:50 Alkaline Phosphatase 77 U/L (34-104) 09/27/18 05:50 Troponin I < 0.01 ng/mL (0.01-0.05) L 09/21/18 21:35 B-Natriuretic Peptide < 5.0 pg/mL (5.0-100.0) L 09/21/18 21:35 Total Protein 5.8 gm/dL (6.0-8.3) L 09/27/18 05:50 Albumin 3.6 gm/dL (4.2-5.5) L 09/27/18 05:50 Globulin 2.2 gm/dL 09/27/18 05:50 Albumin/Globulin Ratio 1.6 (1.0-1.8) 09/27/18 05:50 Triglycerides 61 mg/dL (<150) 09/22/18 06:16 Cholesterol 117 mg/dL (<200) 09/22/18 06:16 LDL Cholesterol Direct 68 mg/dL (75-193) L 09/22/18 06:16 HDL Cholesterol 42 mg/dL (23-92) 09/22/18 06:16 TSH 13.42 uIU/ml (0.34-5.60) H 09/22/18 06:16 Urine Source RANDOM 09/21/18 23:25 Urine Color YELLOW 09/21/18 23:25 Urine Clarity CLEAR (CLEAR) 09/21/18 23:25 Urine pH 8.0 (4.6 - 8.0) 09/21/18 23:25 Ur Specific [place] 1.015 (1.005-1.030) 09/21/18 23:25 Urine Protein NEGATIVE mg/dL (NEGATIVE) 09/21/18 23:25 Urine Glucose (UA) NEGATIVE mg/dL (NEGATIVE) 09/21/18 23:25 Urine Ketones NEGATIVE mg/dL (NEGATIVE) 09/21/18 23:25 Urine Blood NEGATIVE (NEGATIVE) 09/21/18 23:25 Urine Nitrate NEGATIVE (NEGATIVE) 09/21/18 23:25 Urine Bilirubin NEGATIVE (NEGATIVE) 09/21/18 23:25 Urine Urobilinogen 0.2 E.U./dL (0.2 - 1.0) 09/21/18 23:25 Ur Leukocyte Esterase NEGATIVE (NEGATIVE) 09/21/18 23:25 - Physical Exam Vitals and I&O: Vital Signs Temp 98.8 F 09/27/18 04:00 Pulse 60 09/27/18 09:16 Resp 19 09/27/18 04:00 BP 108/68 09/27/18 04:00 Pulse Ox 97 09/27/18 04:00 Intake & Output 09/26/18 09/27/18 09/27/18 18:59 06:59 18:59 Weight (lbs) 62.142 kg Other: # Voids 2 Stool Characteristics Formed Formed Hard Hard Brown Brown Weight Source Bedscale Active Medications: Current Medications Acetaminophen (Tylenol) 650 mg PO Q6HR PRN PRN Reason: Fever > 101 Stop: 11/21/18 20:18 Bisacodyl (Dulcolax 10 Mg Supp) 10 mg RC Q72H PRN PRN Reason: Constipation Stop: 11/21/18 20:18 Last Admin: 09/27/18 08:53 Dose: 10 mg Calcium Carbonate (Os-Zay) 500 mg PO BID [facility] Stop: 11/22/18 08:59 Last Admin: 09/27/18 11:21 Dose: Not Given Calcium Carbonate (Os-Zay) 500 mg PO DAILY [facility] Stop: 11/23/18 08:59 Last Admin: 09/27/18 08:52 Dose: 500 mg Dicyclomine HCl (Bentyl) 10 mg PO TID PRN PRN Reason: Irritable Bowel Stop: 11/21/18 20:18 Diphenhydramine HCl (Benadryl) 50 mg PO HS [facility] Stop: 11/21/18 20:59 Last Admin: 09/26/18 20:43 Dose: 50 mg Diphenhydramine HCl (Benadryl) 50 mg PO DAILY [facility] Stop: 11/23/18 08:59 Last Admin: 09/27/18 08:48 Dose: 25 mg Divalproex Sodium (Depakote Dr) 500 mg PO BID [facility]; Protocol Stop: 11/22/18 08:59 Last Admin: 09/27/18 08:48 Dose: 500 mg Docusate Sodium (Colace) 100 mg PO BID [facility] Stop: 11/22/18 08:59 Last Admin: 09/27/18 08:53 Dose: 100 mg Dextrose/Sodium Chloride (D5-0.45ns) 1,000 mls @ 75 mls/hr IV .[id number] [facility] Stop: 11/21/18 00:14 Last Admin: 09/25/18 09:46 Dose: 75 mls/hr Levothyroxine Sodium (Synthroid) 0.1 mg PO QDAC [facility] Stop: 11/22/18 07:29 Last Admin: 09/27/18 06:49 Dose: 0.1 mg Loratadine (Claritin) 10 mg PO DAILY [facility] Stop: 11/22/18 08:59 Last Admin: 09/27/18 10:23 Dose: 10 mg Lorazepam (Ativan) 1 mg PO TID [facility]; Protocol Stop: 11/21/18 20:59 Last Admin: 09/27/18 10:24 Dose: 1 mg Lorazepam (Ativan) 1 mg PO Q12H PRN PRN Reason: ANXIETY Stop: 11/22/18 09:28 Last Admin: 09/24/18 07:20 Dose: 1 mg Lorazepam (Ativan) 1 mg IVP Q4HR PRN; Protocol PRN Reason: Anxiety Stop: 11/25/18 10:10 Last Admin: 09/27/18 05:05 Dose: 1 mg Magnesium Hydroxide (Milk Of Magnesia) 30 ml PO Q4H PRN PRN Reason: Constipation Stop: 11/21/18 20:18 Last Admin: 09/27/18 10:24 Dose: 30 ml Olanzapine (Zyprexa) 10 mg PO QAM [facility]; Protocol Stop: 11/22/18 08:59 Last Admin: 09/27/18 08:53 Dose: 10 mg Olanzapine (Zyprexa) 15 mg PO HS [facility]; Protocol Stop: 11/21/18 20:59 Last Admin: 09/26/18 20:43 Dose: 15 mg Promethazine HCl (Phenergan) 12.5 mg PO Q6HR PRN PRN Reason: Cough Stop: 11/21/18 20:18 Quetiapine Fumarate (Seroquel) 400 mg PO BID [facility]; Protocol Stop: 11/22/18 08:59 Last Admin: 09/27/18 08:52 Dose: 400 mg Risperidone (Risperdal) 2 mg PO DAILY [facility] Stop: 11/23/18 08:59 Last Admin: 09/27/18 08:47 Dose: 2 mg Simethicone (Mylicon) 80 mg PO TID [facility] Stop: 11/21/18 20:59 Last Admin: 09/27/18 08:53 Dose: 80 mg Tamsulosin HCl (Flomax) 0.4 mg PO HS [facility] Stop: 11/22/18 20:59 Last Admin: 09/26/18 20:43 Dose: 0.4 mg Vitamin D (Vitamin D) 400 iu PO DAILY [facility] Stop: 11/22/18 08:59 Last Admin: 09/27/18 08:52 Dose: 400 iu General: alert HEENT: NC/AT Neck: Supple, No JVD Lungs: CTAB Cardiovascular: RRR, Normal S1, Normal S2 Abdomen: soft, tender Extremities: clear Neurological: no change Internal Medicine Assmt/Plan - Assessment Assessment: severe constipation abd pain hypothyroidism bph schizophrenia - Plan Plan: as per order sheet discharge planning
== END 2018-09-27 16:45 | disposition home or self-care (01) | DRG 392 ==
LOC: ER 20:57 → MSI 09-22 00:05
PROVIDERS: ADMIT Internal Medicine; ATTEND Internal Medicine
DX: K59.09 Other constipation (principal); N40.0 Benign prostatic hyperplasia without lower urinary tract symptoms; F20.9 Schizophrenia, unspecified; E03.9 Hypothyroidism, unspecified
CPT/HCPCS: 36415-UA; 71045-TC; 74000-TC; 80048-TC; 80053-TC; 80061-TC; 81003-TC; 82948-90; 83880-TC; 84443-TC; 84484-TC; 85025-TC; 93005; J2060; X3401; Z7610